=== PATIENT | male | born 1935 | race Caucasian/White ===

== ENCOUNTER → 2016-10-30 | Outpatient (CLI) | payer BC ==
[~2016-10-30] MED LIST: ASCO10003 PO; ASPI325T39 PO; BIOT1CAP8 PO; BNC20 PO; CHOL20009 PO; CHRO1TAB4 PO; COEN1CAP7 PO; LPT/20 PO; LUTE1TAB2 PO; NIAC250T8 PO; OMEG12006 PO; PLV75 PO; PSYL0.529 PO; RESV100C PO; SELE200T9 PO; TPRSR/50 PO; TPRSR25 PO; TRAM-10 PO; VITA1CAP11 PO; VITA1TAB4 PO; VITBC PO; WARF7.5T PO
[2016-10-30 14:00] LABS: ESTIMATED AVERAGE GLUCOSE 126 mg/dl; HA1C FLAG Normal (Normal)
[2016-10-30 14:03] LABS: BASO % 0.8 %; BASO ABS # 0.06 K/uL (0-0.2); COMPLETE YES; EOS % 7.3 %; HEMATOCRIT 41.6 % (42-52); IG% 0.3 %; LYMPH ABS # 1.64 K/uL (1.2-3.4); MEAN CORPUSCULAR HEMOGLOBIN 34.4 pg (25-34); MEAN CORPUSCULAR HGB CONC 33.4 g/dl (32-36); MEAN PLATELET VOLUME 10.4 fL (7.4-10.4); MONO % 15.4 %; NEUT % 53.2 %; PLATELET COUNT 171 K/uL (130-400); RED BLOOD COUNT 4.04 M/uL (4.7-6.1); WHITE BLOOD COUNT 7.12 K/uL (4.8-10.8)
[2016-10-30 14:07] LABS: ALKALINE PHOSPHATASE 64 U/L (45-117); ALT/SGPT 31 U/L (12-78); AST/SGOT 24 U/L (15-37); BLOOD UREA NITROGEN 13 mg/dl (7-18); BUN/CREATININE RATIO 14.5 (10-20); CALCIUM 8.7 mg/dl (8.5-10.1); CARBON DIOXIDE 31 mmol/L (21-32); CHLORIDE 104 mmol/L (98-107); CREATININE 0.91 mg/dl (0.60-1.40); GLUCOSE 107 mg/dl (70-99); POTASSIUM 4.3 mmol/L (3.5-5.1); SODIUM 141 mmol/L (136-145)
[2016-10-30 14:13] LABS: PROSTATE SPECIFIC ANTIGEN 0.054 ng/ml (0.000-4.000)
--- NOTE | 2016-11-08 08:42 | CODING QUERY MEDICAL NECESSITY ---
SUPPORTING DIAGNOSIS NEEDED A supporting diagnosis is required for the test/procedure performed on this patient in order for us to be reimbursed by the patient's insurance. Please provide a supporting diagnosis for the following test/procedure listed below next to the test name along with your signature. *If there is no additional diagnosis for this patient that would support the following test/procedure please document that below next to the test/procedure. Test(s)/Procedure(s) that require a supporting diagnosis: * GLYCATED HEMOGLOBIN DIAGNOSIS: * PSA DIAGNOSIS: * DOS: 10/30/16 Provider Signature: Date: Thank you Citlalli Graff Health Information Management Once completed, please kindly fax back to [phone] For questions please call [phone]
== END | disposition home or self-care (01) ==
LOC: C.LABBC 10:15
PROVIDERS: ATTEND Internal Medicine
DX: I87.8 Other specified disorders of veins (principal); Z86.718 Personal history of other venous thrombosis and embolism; C61 Malignant neoplasm of prostate; R73.01 Impaired fasting glucose

== ENCOUNTER → 2017-04-25 | Outpatient (CLI) | payer BC ==
[2017-04-25 10:53] LABS: BASO % 0.9 %; BASO ABS # 0.06 K/uL (0-0.2); COMPLETE YES; EOS % 3.8 %; HEMATOCRIT 42.9 % (42-52); IG% 0.3 %; LYMPH % 25.3 %; LYMPH ABS # 1.67 K/uL (1.2-3.4); MEAN CELL VOLUME 103.9 fL (80-100); MEAN CORPUSCULAR HEMOGLOBIN 35.4 pg (25-34); MEAN PLATELET VOLUME 10.1 fL (7.4-10.4); MONO % 15.8 %; NEUT % 53.9 %; PLATELET COUNT 189 K/uL (130-400); RED BLOOD COUNT 4.13 M/uL (4.7-6.1); WHITE BLOOD COUNT 6.59 K/uL (4.8-10.8)
[2017-04-25 11:02] LABS: ALT/SGPT 33 U/L (12-78); AST/SGOT 22 U/L (15-37); BLOOD UREA NITROGEN 14 mg/dl (7-18); BUN/CREATININE RATIO 16.1 (10-20); CALCIUM 8.6 mg/dl (8.5-10.1); CARBON DIOXIDE 28 mmol/L (21-32); CHLORIDE 108 mmol/L (98-107); CREATININE 0.87 mg/dl (0.60-1.40); GLUCOSE 99 mg/dl (70-99); POTASSIUM 4.8 mmol/L (3.5-5.1); SODIUM 142 mmol/L (136-145)
[2017-04-25 11:03] LABS: PROTHROMBIN TIME (PATIENT) 44.7 SECONDS (9.0-12.0)
[2017-04-25 11:05] LABS: ALB/GLOB RATIO 0.9 (0.9-2); ALKALINE PHOSPHATASE 60 U/L (45-117); CHOLESTEROL 132 mg/dl (0-200); CHOLESTEROL/HDL RATIO 3.4; HDL CHOLESTEROL 39 mg/dl; LDL CHOLESTEROL CALCULATED 68 mg/dl; TRIGLYCERIDES 126 mg/dl (0-150); VERY LOW DENSITY LIPOPROT CALC 25 mg/dl
[2017-04-25 11:08] LABS: INR 3.9 (0.9-1.1)
== END | disposition home or self-care (01) ==
LOC: C.LABBC 08:46
PROVIDERS: ATTEND Internal Medicine
DX: D75.89 Other specified diseases of blood and blood-forming organs (principal); I48.0 Paroxysmal atrial fibrillation

== ENCOUNTER 2017-07-11 14:27 | Emergency (ER) | payer BC ==
[~2017-07-11] VITALS: Ht 182.9 cm; Wt 121.6 kg
[~2017-07-11 14:27] MED LIST changes: -PLV75 PO; -TPRSR/50 PO; -TRAM-10 PO
[2017-07-11 14:35] VITALS: TEMP 36.5; Ht 182.9 cm; Wt 121.6 kg
[2017-07-11] MEDS ORDERED: SODIUM CHLORIDE 0.9% 1000ML 1,000 ML IV STA (15:13)
--- NOTE | 2017-07-11 15:18 | EMERGENCY ROOM VISIT NOTE ---
History Report prepared by Rashid: Kalpesh Gustafson Under the Supervision of: Dr. Bettye Slater M.D. First contact with patient: 15:02 Chief Complaint: GI ASSESSMENT Stated Complaint: GASTRO-INTESTINAL DISTRESS Nursing Triage Summary: Patient c/o stomach soreness since 0900, mid lower abdomen. Nausea. Intermittent symptoms. Denies Diarrhea and constipation. Last large BM this am. In this am in coagulation clinic at [facility]. History of Present Illness The patient is a 82 year old male who presents to the Emergency Room with complaints of intermittent left lower abdominal pain that began this morning, 6 hours ago. He rates his pain a 4/10 in severity. Since this morning, he has been having this pain every couple of hours, with his pain being constant at this time. He notes that he also has intermittent right flank pain, with none currently. He has never had a kidney stone before. He is also experiencing nausea. He denies any fevers, diarrhea, constipation, melena, hematochezia, and abnormal urinary symptoms. His last bowel movement was this morning. He still has his gallbladder but not his appendix. He has a past medical history of hypertension, atrial fibrillation, and prostate cancer. He is taking blood thinners secondary to his atrial fibrillation and his DVT history. Source of History: patient Onset: 6 hours ago Position: abdomen (LLQ) Symptom Intensity: 4/10 Quality: ache Timing: intermittent Associated Symptoms: + nausea, No fevers, No vomiting, No back pain, No melena, No hematochezia, No diarrhea, No urinary symptoms Review of Systems See HPI for pertinent positives & negatives. A total of 10 systems reviewed and were otherwise negative. Past Medical & Surgical Medical Problems: (1) Peripheral neuropathy Family History Blood clots Social History Smoking Status: Never Smoker Smokeless Tobacco Use: No Alcohol Use: occasionally Drug Use: none Marital Status: Housing Status: lives with significant other Occupation Status: retired Current/Historical Medications Scheduled Ascorbic Acid (Vitamin C), 2 TAB PO QAM Atorvastatin (Atorvastatin Calcium), 20 MG PO DAILY Biotin (Biotin), 1,000 MCG PO DAILY Cholecalciferol (Vitamin D), 2,000 UNITS PO DAILY Chromium (Chromium Gtf), 1 TAB PO QAM Clopidogrel Bisulfate (Clopidogrel), 1 TAB PO DAILY Coenzyme Q10 (Ubidecarenone) (Coq10), 200 MG PO DAILY Lutein (Lutein), 1 TAB PO DAILY Metoprolol Succinate (Metoprolol Succinate ER), 1 TAB PO DAILY Niacin (Niacin), 250 MG PO QAM Olmesartan Medoxomil (Benicar), 20 MG PO DAILY [place]-3 Fatty Acids ([place] 3), 720 MG PO DAILY Psyllium (Eq Fiber Therapy), 3 CAP PO DAILY Resveratrol (Resveratrol), 1 CAP PO DAILY Selenium (Selenium), 1 TAB PO QAM Vitamin A ([id number]), 10,000 UNITS PO DAILY Vitamin B Complex (Vitamin B Complex), 1 TAB PO QAM Vitamin E (Vitamin E), 1 TAB PO QAM Warfarin Sodium (Coumadin), 7.5 MG PO DAILY Scheduled PRN Tramadol (Ultram), 1 TABS PO Q6 PRN for Pain Allergies Coded Allergies: Fiore (Verified Allergy, Severe, FRESH CHERRIES CAUSE THROAT SWELLING/ BREATHING DIFFICULTY, 07/11/17) Oxycodone (Verified Adverse Reaction, Unknown, NAUSEA & DIZZY, 07/11/17) Physical Exam Vital Signs Date Time Temp Pulse Resp B/P (MAP) Pulse Ox O2 Delivery O2 Flow Rate FiO2 07/11/17 16:30 56 12 169/83 97 Room Air 07/11/17 15:23 67 07/11/17 14:35 36.5 64 18 165/89 94 Room Air Physical Exam Vital signs reviewed. General: Well-appearing obese elderly male, in no significant distress. HEENT: No scleral icterus, PERRLA, neck supple. Atraumatic. Cardiovascular: Regular rate and rhythm, no extra sounds. Pulmonary: Clear to auscultation bilaterally, normal work of breathing. Abdomen: Soft, no reproducible tenderness to the lower abdomen, nondistended, positive bowel sounds. Musculoskeletal: Atraumatic, no peripheral edema. No CVA tenderness. Neurologic: Patient awake alert and oriented x 3 Skin: Warm, dry, no rash Medical Decision & Procedures ER Provider Diagnostic Interpretation: Radiology results as stated below per my review and radiologist interpretation: CT OF THE ABDOMEN AND PELVIS WITHOUT CONTRAST CLINICAL HISTORY: Right lower abdominal pain. Right flank pain. Stone. COMPARISON STUDY: CTA of the abdomen and pelvis June 06, 2013. TECHNIQUE: Axial images of the abdomen and pelvis were obtained without IV contrast. Images were reviewed in the axial, sagittal, and coronal planes. A dose lowering technique was utilized adhering to the principles of ALARA. FINDINGS: A 4 mm distal right ureteral calculus results in mild right hydroureteronephrosis. No additional urinary calculi are identified. Evaluation of the remainder of the abdomen and pelvis is suboptimal on this unenhanced examination. There is extensive coronary artery calcification. Unenhanced images of the liver, spleen, adrenal glands and pancreas are unremarkable. There is no biliary or pancreatic ductal dilatation. No abdominal or pelvic lymphadenopathy is present. Note is made of a 3.7 x 3.2 cm infrarenal abdominal aortic aneurysm which has mildly increased in size since CT of June 06, 2013 when measured 3.3 x 2.8 cm. There is no evidence for rupture. 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 The left common iliac artery measures 2.3 cm. Caliber and wall thickness of small and large bowel are unremarkable on this unenhanced exam. There are no suspicious lesions. No ascites is identified. Postoperative findings within the spine are present. IMPRESSION: 1. 4 mm distal right ureteral calculus which results in mild right hydroureteronephrosis. 2. Mild increase in size of a 3.7 x 3.2 cm infrarenal abdominal aortic aneurysm since CT of June 06, 2013. No significant change in mild aneurysmal dilatation of the bilateral common iliac arteries. Electronically signed by: Mark Carpenter M.D. 07/11/2017 4:03 PM Dictated Date/Time: 07/11/2017 3:54 PM Laboratory Results 07/11/17 15:05 Red Blood Count 4.21, Mean Corpuscular Volume 102.1, Mean Corpuscular Hemoglobin 35.6, Mean Corpuscular Hemoglobin Concent 34.9, Mean Platelet Volume 10.0, Neutrophils (%) (Auto) 69.0, Lymphocytes (%) (Auto) 13.8, Monocytes (%) ( Auto) 15.6, Eosinophils (%) (Auto) 0.9, Basophils (%) (Auto) 0.5, Neutrophils # (Auto) 6.02, Lymphocytes # (Auto) 1.20, Monocytes # (Auto) 1.36, Eosinophils # ( Auto) 0.08, Basophils # (Auto) 0.04 07/11/17 15:05 Test 07/11/17 15:05 07/11/17 15:20 White Blood Count 8.72 K/uL (4.8-10.8) Red Blood Count 4.21 M/uL (4.7-6.1) Hemoglobin 15.0 g/dL (14.0-18.0) Hematocrit 43.0 % (42-52) Mean Corpuscular Volume 102.1 fL (80-100) Mean Corpuscular Hemoglobin 35.6 pg (25-34) Mean Corpuscular Hemoglobin Concent 34.9 g/dl (32-36) Platelet Count 178 K/uL (130-400) Mean Platelet Volume 10.0 fL (7.4-10.4) Neutrophils (%) (Auto) 69.0 % Lymphocytes (%) (Auto) 13.8 % Monocytes (%) (Auto) 15.6 % Eosinophils (%) (Auto) 0.9 % Basophils (%) (Auto) 0.5 % Neutrophils # (Auto) 6.02 K/uL (1.4-6.5) Lymphocytes # (Auto) 1.20 K/uL (1.2-3.4) Monocytes # (Auto) 1.36 K/uL (0.11-0.59) Eosinophils # (Auto) 0.08 K/uL (0-0.5) Basophils # (Auto) 0.04 K/uL (0-0.2) RDW Standard Deviation 48.2 fL (36.4-46.3) RDW Coefficient of Variation 12.9 % (11.5-14.5) Immature Granulocyte % (Auto) 0.2 % Immature Granulocyte # (Auto) 0.02 K/uL (0.00-0.02) Anion Gap 7.0 mmol/L (3-11) Est Creatinine Clear Calc Drug Dose 63.9 ml/min Estimated GFR () 64.9 Estimated GFR (Non- 56.0 BUN/Creatinine Ratio 13.8 (10-20) Calcium Level 9.5 mg/dl (8.5-10.1) Total Bilirubin 0.8 mg/dl (0.2-1) Direct Bilirubin 0.2 mg/dl (0-0.2) Aspartate Amino Transf (AST/SGOT) 25 U/L (15-37) Alanine Aminotransferase (ALT/SGPT) 31 U/L (12-78) Alkaline Phosphatase 67 U/L (45-117) Total Protein 7.6 gm/dl (6.4-8.2) Albumin 3.8 gm/dl (3.4-5.0) Lipase 148 U/L (73-393) Urine Color DK YELLOW Urine Appearance CLEAR (CLEAR) Urine pH 6.0 (4.5-7.5) Urine Specific Rawlings 1.019 (1.000-1.030) Urine Protein NEG (NEG) Urine Glucose (UA) NEG (NEG) Urine Ketones NEG (NEG) Urine Occult Blood 3+ (NEG) Urine Nitrite NEG (NEG) Urine Bilirubin NEG (NEG) Urine Urobilinogen NEG (NEG) Urine Leukocyte Esterase NEG (NEG) Urine WBC (Auto) 1-5 /hpf (0-5) Urine RBC (Auto) >30 /hpf (0-4) Urine Hyaline Casts (Auto) 0 /lpf (0-5) Urine Epithelial Cells (Auto) 0-5 /lpf (0-5) Urine Bacteria (Auto) NEG (NEG) Laboratory results per my review. Medications Administered Medications (Trade) Dose Ordered Sig/Marilyn Route Start Time Stop Time Status Last Admin Dose Admin Sodium Chloride 1,000 ml @ 125 mls/hr Q8H STAT IV 07/11/17 15:13 07/11/17 18:09 DC 07/11/17 15:56 125 MLS/HR ED Course 1502: Past medical records reviewed. The patient was evaluated in room A2. A complete history and physical examination was performed. 1513: Ordered Sodium Chloride 1000 ml @ 125 mls/hr IV 1700: Upon reevaluation, the patient appeared to have improvement of his symptoms. I discussed findings with him. He verbalized agreement of the treatment plan. He was discharged home. Medical Decision Differential diagnosis: Etiologies such as appendicitis, diverticulitis, PUD, biliary pathology, UTI, pancreatitis, obstruction, mesenteric ischemia, aortic pathology, infections, inflammatory bowel disease, renal colic, as well as others were entertained. This patient was evaluated and appeared to be in no significant distress. IV access was obtained and laboratory work was drawn. Patient was placed on the telemetry monitor. Patient's physical examination reveals no significant peritonitis. CT scan abdomen and pelvis reveals a 4 mm distal ureteral calculus. There is mild hydronephrosis. Renal function is intact. The patient did not require any pain medications. Pt was informed of the findings. Case management will assist with urologic follow-up this week. Patient was discharged to care of his with a prescription for Ultram to be used as needed. He will return to the ER for worsening of symptoms or any medical concerns. Medication Reconcilliation Current Medication List: was personally reviewed by me Blood Pressure Screening Patient's blood pressure: Elevated blood pressure Blood pressure disposition: Elevated BP felt to be situational Impression Primary Impression: Ureteral colic Additional Impression: Kidney stone Scribe Attestation The scribe's documentation has been prepared under my direction and personally reviewed by me in its entirety. I confirm that the note above accurately reflects all work, treatment, procedures, and medical decision making performed by me. Departure Information Dispostion Home / Self-Care Prescriptions Tramadol (Ultram) 50 Mg Tab 1 TABS PO Q6 Y for Pain, #20 TAB Prov: Bettye Slater M.D. 07/11/17 Referrals Red Mix M.D. (PCP) Raj Norton M.D. Forms HOME CARE DOCUMENTATION FORM, IMPORTANT VISIT INFORMATION Patient Instructions My [facility] Additional Instructions Diagnosis: Kidney stone Strain all of your urine and take the stone for analysis. Increase fluids. Tylenol 650 mg every 6 hours as needed for pain (Maximum 3000 mg Tylenol in 24 hr period). Ultram 1 tablet every 6 hrs as needed for worse pain. No driving, working, or alcohol use with Ultram. Ultram 50 mg every 6 hours as needed for pain. Follow up with your urologist as scheduled by case management. Follow up sooner for fever >101, vomiting, or significant increase in pain not controlled with medication. Problem Qualifiers
[2017-07-11 15:30] LABS: BASO % 0.5 %; BASO ABS # 0.04 K/uL (0-0.2); COMPLETE YES; EOS % 0.9 %; IG% 0.2 %; LYMPH % 13.8 %; MEAN CELL VOLUME 102.1 fL (80-100); MEAN CORPUSCULAR HEMOGLOBIN 35.6 pg (25-34); MEAN CORPUSCULAR HGB CONC 34.9 g/dl (32-36); MONO % 15.6 %; PLATELET COUNT 178 K/uL (130-400); RED BLOOD COUNT 4.21 M/uL (4.7-6.1); WHITE BLOOD COUNT 8.72 K/uL (4.8-10.8)
[2017-07-11 15:40] LABS: URINE APPEARANCE CLEAR (CLEAR); URINE BILIRUBIN NEG (NEG); URINE COLOR DK YELLOW; URINE EPITHELIAL CELL AUTO 0-5 /lpf (0-5); URINE NITRITE NEG (NEG); URINE SPECIFIC GRAVITY 1.019 (1.000-1.030); UROBILINOGEN NEG (NEG); ZZUR CULT IF INDIC CLEAN CATCH NO
[2017-07-11 15:47] LABS: BUN/CREATININE RATIO 13.8 (10-20); CALCIUM 9.5 mg/dl (8.5-10.1); CREATININE 1.2 mg/dl (0.60-1.40); POTASSIUM 4.6 mmol/L (3.5-5.1)
[2017-07-11 15:51] LABS: MANUAL MICROSCOPIC REQUIRED? NO; REVIEW REQ? NO
[2017-07-11] MEDS ORDERED: PLV75 PO (16:03)
[2017-07-11] MEDS ORDERED: TPRSR/50 PO (16:03)
--- NOTE | 2017-07-11 16:04 | DIAGNOSTIC IMAGING REPORT ---
CT OF THE ABDOMEN AND PELVIS WITHOUT CONTRAST CLINICAL HISTORY: Right lower abdominal pain. Right flank pain. Stone. COMPARISON STUDY: CTA of the abdomen and pelvis June 06, 2013. TECHNIQUE: Axial images of the abdomen and pelvis were obtained without IV contrast. Images were reviewed in the axial, sagittal, and coronal planes. A dose lowering technique was utilized adhering to the principles of ALARA. FINDINGS: A 4 mm distal right ureteral calculus results in mild right hydroureteronephrosis. No additional urinary calculi are identified. Evaluation of the remainder of the abdomen and pelvis is suboptimal on this unenhanced examination. There is extensive coronary artery calcification. Unenhanced images of the liver, spleen, adrenal glands and pancreas are unremarkable. There is no biliary or pancreatic ductal dilatation. No abdominal or pelvic lymphadenopathy is present. Note is made of a 3.7 x 3.2 cm infrarenal abdominal aortic aneurysm which has mildly increased in size since CT of June 06, 2013 when measured 3.3 x 2.8 cm. There is no evidence for rupture. 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 The left common iliac artery measures 2.3 cm. Caliber and wall thickness of small and large bowel are unremarkable on this unenhanced exam. There are no suspicious lesions. No ascites is identified. Postoperative findings within the spine are present. IMPRESSION: 1. 4 mm distal right ureteral calculus which results in mild right hydroureteronephrosis. 2. Mild increase in size of a 3.7 x 3.2 cm infrarenal abdominal aortic aneurysm since CT of June 06, 2013. No significant change in mild aneurysmal dilatation of the bilateral common iliac arteries. Electronically signed by: Mark Carpenter M.D. 07/11/2017 4:03 PM Dictated Date/Time: 07/11/2017 3:54 PM
[2017-07-11 16:30] VITALS: BP 169/83; PULSE 56; O2SAT 97
[2017-07-11] MEDS ORDERED: TRAM-10 PO (16:52)
== END 2017-07-11 16:55 | disposition home or self-care (01) ==
LOC: C.EDB 14:29 → C.EDA 16:55
DX: N13.2 Hydronephrosis with renal and ureteral calculous obstruction (principal); Z79.899 Other long term (current) drug therapy; Z88.5 Allergy status to narcotic agent; Z91.018 Allergy to other foods; Z83.2 Family history of diseases of the blood and blood-forming organs and certain disorders involving the immune mechanism; Z51.81 Encounter for therapeutic drug level monitoring; Z79.01 Long term (current) use of anticoagulants; I48.91 Unspecified atrial fibrillation

== ENCOUNTER → 2017-07-18 | Outpatient (CLI) | payer BC ==
[~2017-07-18] MED LIST changes: -ASPI325T39 PO; +PLV75 PO; +TPRSR/50 PO; -TPRSR25 PO; +TRAM-10 PO
== END | disposition home or self-care (01) ==
LOC: C.LABSPEC 17:40
PROVIDERS: ATTEND Urology
DX: N20.0 Calculus of kidney (principal)

== ENCOUNTER → 2017-08-06 | Outpatient (CLI) | payer BC ==
--- NOTE | 2017-08-06 11:37 | DIAGNOSTIC IMAGING REPORT ---
ULTRASOUND KIDNEYS AND BLADDER CLINICAL HISTORY: Nephrolithiasis. COMPARISON STUDY: Abdominal CT dated 07/11/2017. TECHNIQUE: Real-time, grayscale, and color flow sonography of the kidneys and bladder is performed. Images are reviewed in the transverse and longitudinal planes. FINDINGS: Kidneys: The kidneys are atrophic. The right kidney measures 11.8 cm in length and the left kidney measures 12.1 cm in length. There is no hydronephrosis. No shadowing renal calculi are identified. There is no sonographic evidence of contour deforming renal mass lesion. No perinephric fluid is identified. Bladder: The bladder is normal in appearance. Bilateral ureteral jets were seen. IMPRESSION: 1. The kidneys are atrophic and without hydronephrosis. 2. No shadowing calculi were identified. 3. The bladder was normal as imaged. Electronically signed by: Jason Ferreira M.D. 08/06/2017 11:35 AM Dictated Date/Time: 08/06/2017 11:35 AM
== END | disposition home or self-care (01) ==
LOC: C.ULTRBC 10:10
PROVIDERS: ATTEND Urology
DX: N20.0 Calculus of kidney (principal)

== ENCOUNTER → 2017-09-24 | Outpatient (CLI) | payer BC | END | disposition home or self-care (01) | LOC: C.MAMM 15:38 | PROVIDERS: ATTEND Physician Assistant Medical | DX: Z00.00 Encounter for general adult medical examination without abnormal findings (principal); S22.39XA Fracture of one rib, unspecified side, initial encounter for closed fracture; X58.XXXA Exposure to other specified factors, initial encounter ==

== ENCOUNTER → 2017-10-05 | Outpatient (CLI) | payer BC ==
--- NOTE | 2017-10-05 12:10 | DIAGNOSTIC IMAGING REPORT ---
L FOOT MIN 3 VIEWS ROUTINE HISTORY: 82 years-old Male LEFT LEG PAIN/SWELLING, R/O DVT acute pain and swelling of the left foot COMPARISON: None available TECHNIQUE: 3 views of the left foot FINDINGS: Peripheral vascular disease. Moderate spurring of the plantar calcaneus. Mild to moderate dorsal spurring is noted throughout the midfoot. There is no acute fracture or dislocation identified. Bones appear mildly demineralized. Hallux valgus deformity with mild bunion formation. Marginal spurring is noted medially about the first tarsal metatarsal joint. Please mild general changes are noted throughout the interphalangeal joints with moderate first MTP joint osteoarthritis. Mild diffuse soft tissue swelling. IMPRESSION: 1. Osteopenic appearance of the bones without acute fracture or dislocation. 2. 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 3. Peripheral vascular disease. 4. Mild soft tissue swelling. The above report was generated using voice recognition software. It may contain grammatical, syntax or spelling errors. Electronically signed by: Eb Guerrero M.D. 10/05/2017 12:09 PM Dictated Date/Time: 10/05/2017 12:06 PM
--- NOTE | 2017-10-05 12:29 | DIAGNOSTIC IMAGING REPORT ---
L VENOUS DOPP LOWER EXT UNILAT HISTORY: 82 years-old Male LEFT LEG PAIN/SWELLING, R/O DVT acute left lower extremity pain and swelling COMPARISON: Duplex Doppler 07/09/2014 TECHNIQUE: Multiple real-time sonographic images of the left lower extremity were obtained assessing grayscale appearance, color and echo flow FINDINGS: There is normal flow, phasicity, augmentation and compressibility within the deep venous structures. IMPRESSION: No sonographic evidence of deep venous thrombosis. The above report was generated using voice recognition software. It may contain grammatical, syntax or spelling errors. Electronically signed by: Eb Guerrero M.D. 10/05/2017 12:28 PM Dictated Date/Time: 10/05/2017 12:27 PM
== END | disposition home or self-care (01) ==
LOC: C.ULTRBC 11:35
PROVIDERS: ATTEND Nurse Practitioner Adult Health
DX: M79.673 Pain in unspecified foot (principal); R60.9 Edema, unspecified

== ENCOUNTER → 2017-11-09 | Outpatient (CLI) | payer BC ==
[~2017-11-09] MED LIST changes: -LPT/20 PO; +LPT20 PO
[2017-11-09 14:40] LABS: CALCIUM 9.1 mg/dl (8.5-10.1)
== END | disposition home or self-care (01) ==
LOC: C.LABBC 09:32
PROVIDERS: ATTEND Internal Medicine Rheumatology
DX: N20.0 Calculus of kidney (principal); M85.80 Other specified disorders of bone density and structure, unspecified site; S22.39XA Fracture of one rib, unspecified side, initial encounter for closed fracture; S22.000A Wedge compression fracture of unspecified thoracic vertebra, initial encounter for closed fracture; X58.XXXA Exposure to other specified factors, initial encounter

== ENCOUNTER → 2017-11-19 | Outpatient (CLI) | payer BC ==
[2017-11-19 10:55] LABS: BASO % 0.7 %; BASO ABS # 0.05 K/uL (0-0.2); EOS % 3.1 %; EOS ABS # 0.21 K/uL (0-0.5); HEMATOCRIT 42.4 % (42-52); HEMOGLOBIN 14.4 g/dL (14.0-18.0); IG# 0.02 K/uL (0.00-0.02); LYMPH % 26.1 %; LYMPH ABS # 1.79 K/uL (1.2-3.4); MEAN CELL VOLUME 104.4 fL (80-100); MEAN CORPUSCULAR HEMOGLOBIN 35.5 pg (25-34); MEAN PLATELET VOLUME 10.4 fL (7.4-10.4); MONO % 17.8 %; MONO ABS # 1.22 K/uL (0.11-0.59); NEUT ABS # 3.56 K/uL (1.4-6.5); PLATELET COUNT 182 K/uL (130-400); RED CELL DISTRIBUTION WIDTH CV 13.1 % (11.5-14.5); RED CELL DISTRIBUTION WIDTH SD 49.7 fL (36.4-46.3); WHITE BLOOD COUNT 6.85 K/uL (4.8-10.8)
[2017-11-19 11:19] LABS: ALBUMIN 3.5 gm/dl (3.4-5.0); ALT/SGPT 29 U/L (12-78); AST/SGOT 20 U/L (15-37); BLOOD UREA NITROGEN 13 mg/dl (7-18); CALCIUM 8.5 mg/dl (8.5-10.1); CARBON DIOXIDE 31 mmol/L (21-32); CREATININE 0.91 mg/dl (0.60-1.40); GLUCOSE 104 mg/dl (70-99); POTASSIUM 4.4 mmol/L (3.5-5.1); SODIUM 137 mmol/L (136-145)
[2017-11-19 11:24] LABS: ALKALINE PHOSPHATASE 63 U/L (45-117); CHOLESTEROL 148 mg/dl (0-200); LDL CHOLESTEROL CALCULATED 79 mg/dl; TOTAL PROTEIN 7.3 gm/dl (6.4-8.2)
[2017-11-19 11:31] LABS: HEMOGLOBIN A1C 5.9 % (4.5-5.6)
== END | disposition home or self-care (01) ==
LOC: C.LABBC 08:53
PROVIDERS: ATTEND Internal Medicine
DX: I10 Essential (primary) hypertension (principal); C61 Malignant neoplasm of prostate; I25.10 Atherosclerotic heart disease of native coronary artery without angina pectoris; R73.01 Impaired fasting glucose; D75.89 Other specified diseases of blood and blood-forming organs; I48.0 Paroxysmal atrial fibrillation

== ENCOUNTER → 2018-02-11 | Outpatient (CLI) | payer BC ==
[~2018-02-11] MED LIST changes: +MULT-663 PO; -TRAM-10 PO
--- NOTE | 2018-02-11 11:54 | DIAGNOSTIC IMAGING REPORT ---
EXAMINATION: RENAL ULTRASOUND CLINICAL HISTORY: N40.1 Benign prostatic hyperplasia with urinary obstruction COMPARISON STUDY: 08/06/2017 FINDINGS: The right kidney measures 11.9 cm. The left kidney measures 12.1 cm. There is no evidence of hydronephrosis. There are no renal masses. There is mild renal atrophy. No bladder abnormalities are visualized. Bilateral ureteral jets were visualized. IMPRESSION : Mild renal atrophy.. No focal renal masses. No evidence of hydronephrosis Electronically signed by: Randall Ugalde M.D. 02/11/2018 11:52 AM Dictated Date/Time: 02/11/2018 11:51 AM
== END ==
LOC: C.ULTRBC 10:50
PROVIDERS: ATTEND Urology
DX: N40.1 Benign prostatic hyperplasia with lower urinary tract symptoms (principal)

== ENCOUNTER 2022-02-01 14:46 | Inpatient (IN) ==
--- NOTE | 2022-02-01 14:59 | Emergency Department Note ---
History of Present Illness General Chief complaint: Fall Stated complaint: FALL, LAC TO HEAD Time Seen by Provider: 02/01/22 14:48 History of Present Illness Provider complaint: Fall Onset (ago): minute(s) 30 Location: neck Radiation: other (head) Severity: mild Pain Consistency: + constant Current Pain Intensity: 3 Quality: + aching Relieved By: + none Exacerbated By: + none Associated symptoms: + headaches; no chest pain, no cough, no fever/chills, no nausea/vomiting, no shortness of breath, no syncope or no weakness 87-year-old male presents emergency department for fall. Patient reports that he was at his doctor's office in approximately 30 minutes ago fell from standing while trying to put a shirt on. Patient states he hit his head is not having neck pain. Patient reports his doctor called EMS and they brought him here. No loss of consciousness. Patient is on Coumadin. Home Medications Medication Instructions Recorded Confirmed Type ascorbic acid (vitamin C) 500 mg 1,000 mg PO DAILY cap 07/09/18 02/01/22 History capsule biotin 1 mg capsule 1 mg PO DAILY 07/09/18 02/01/22 History calcium 1 tab PO DAILY tab 07/09/18 02/01/22 History taq-kgt-D7-Ho-axrcoc-Tl-boron 250 mg-40 mg-125 unit tablet (Citracal-D3 Plus Magnesium) cholecalciferol (vitamin D3) 100 4,000 units PO DAILY 07/09/18 02/01/22 History mcg (4,000 unit) capsule coenzyme Q10 200 mg capsule 200 mg PO DAILY 07/09/18 02/01/22 History lutein 6 mg capsule 6 mg PO DAILY 07/09/18 02/01/22 History niacin 250 mg tablet 250 mg PO DAILY 07/09/18 02/01/22 History selenium 200 mcg tablet 200 mcg PO DAILY 07/09/18 02/01/22 History vitamin B complex 1 cap PO DAILY 07/09/18 02/01/22 History vitamin E (dl, acetate) 180 mg 400 units PO DAILY 07/09/18 02/01/22 History (400 unit) capsule omega-3 fatty acids 1,000 mg 2,000 mg PO DAILY cap 07/29/19 02/01/22 History capsule clopidogrel 75 mg tablet (Plavix) 75 mg PO DAILY #90 tab 08/16/21 02/01/22 Rx atorvastatin 20 mg tablet (Lipitor) 20 mg PO DAILY #90 tab 11/28/21 02/01/22 Rx docusate sodium 100 mg capsule 200 mg PO DAILY cap 12/23/21 02/01/22 History (Colace) metoprolol succinate 50 mg 50 mg PO DAILY #90 tab 01/05/22 02/01/22 Rx tablet,extended release 24 hr furosemide 20 mg tablet (Lasix) 20 mg PO DAILY #30 tab 01/23/22 02/01/22 Rx chromium picolinate 200 mcg tablet 200 mcg PO DAILY 02/01/22 02/01/22 History warfarin 7.5 mg tablet 7.5 mg PO DAILY 02/01/22 02/01/22 History Allergies Allergy/AdvReac Type Severity Reaction Status Date / Time hall Allergy Severe FRESH Verified 02/01/22 09:53 CHERRIES CAUSE THROAT SWELLING/BREATHING DIFFICULTY Past Med/Surg History Medical History Aortic regurgitation Aortic stenosis Arteriosclerotic heart disease Cervical radiculopathy Hypertension Impaired fasting glucose Lumbar canal stenosis Nephrolithiasis Osteopenia Paroxysmal A-fib Paroxysmal ventricular tachycardia Peripheral vascular disease of lower extremity Polyneuropathy Prostate cancer Surgical History H/O arthroscopy of shoulder left H/O foot surgery H/O prostate biopsy H/O repair of rotator cuff History of carpal tunnel surgery History of lumbar laminectomy Hx of appendectomy Hx of tonsillectomy Status post Mohs surgery Family History Father Dementia Arterial vascular disease Myocardial infarction Denies family history of Ovarian cancer Prostate cancer Breast cancer Colorectal cancer Social History Smoking Status: Never smoker Second Hand Exposure: No; Hx Alcohol Use: Yes (daily glass of wine) Alcohol type: wine Hx Substance Use: No Preferred Language: Sammarinese Communication Ability: Effective Visual Impairment: Limited Hearing Ability: Normal 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 marital status: Current Living Situation: Spouse current occupational status: retired How many Children do You have: 1 Feels Safe at Home: Yes Childhood Exposure to Second-Hand Smoke: No caffeine: Yes (tea daily ) Dental Care, Regularly: Yes Physical Activity Frequency: Does not Exercise Seatbelt Use: always Sunscreen Use: No Assistive Devices: Cane Review of Systems A total of 10 systems reviewed and were otherwise negative Physical Exam Vital Signs Vital Signs - 24 hr 02/01/22 14:55 02/01/22 14:57 02/01/22 16:57 Temperature 37.0 C Temperature Source Oral Pulse Rate 70 Pulse Rate [Left Radial] 97 H 106 H Pulse Rhythm Regular Regular Pulse Rhythm [Left Radial] Regular Regular Pulse Strength Normal Respiratory Rate 20 20 Respiratory Effort / Characteristics Non-Labored Non-Labored Respiratory Depth Normal Normal Respiratory Pattern Regular Blood Pressure 171/103 H Blood Pressure [Left Arm] 171/103 H 165/120 H Blood Pressure Mean 125 Blood Pressure Mean [Left Arm] 125 135 Blood Pressure Position Lying Blood Pressure Position [Left Arm] Lying Lying Pulse Oximetry 94 95 96 Oxygen Delivery Method Room Air Room Air Room Air Sepsis Recent Fever Within 48 Hours No Sepsis New/Unexplained Change in Mental Status No Sepsis Action Taken by Nursing No Action Required Physical Exam GENERAL: He is oriented to person, place, and time. He appears well-developed and well-nourished. He does not appear distressed. HENT: Exam performed. - Head: Skin tear over the patient's forehead. - Right Ear: External ear normal. No mastoid tenderness. - Left Ear: External ear normal. No mastoid tenderness. - Mouth/Throat: The oropharynx is clear and moist. No trismus in the jaw. No dental abscesses or uvula swelling. No oropharyngeal exudate or tonsillar abscesses. EYES: Conjunctivae and EOM are normal. Pupils are equal, round, and reactive to light. Right eye exhibits no discharge. Left eye exhibits no discharge. No scleral icterus. NECK: Patient in c-collar. CV: Normal rate, irregular rhythm, normal heart sounds and intact distal pulses. There is no peripheral edema. Palpable radial pulses bue. PULM/CHEST: Effort normal and breath sounds normal. No respiratory distress. No stridor. He has no wheezes. He has no rales. - Chest Wall: He exhibits no tenderness. ABD: The abdomen is soft. Bowel sounds are normal. He has no distension. No mass is present. There is no tenderness. There is no rebound, no guarding, no Murp hy's sign and no tenderness at McBurney's point. Rovsig negative. MUSC/SKEL: Palpation in the cervical spine. No pain on palpation of the thoracic or lumbar spine. LYMPH: No cervical adenopathy. NEURO: GCS eye subscore is 4. GCS verbal subscore is 5. GCS motor subscore is 6. PSYCH: He has a normal mood and affect. Behavior is normal. Judgment and thought content normal. Course Course 1448: The patient was evaluated in room A11. A complete history and physical exam was performed Cardiac monitoring: An order was placed for continuous cardiac monitoring. The monitor shows a rate of 70 with atrial fibrilation rhythm 1546: Vital signs stable. Labs within normal limits therapeutic INR 2.2. CT of the head within normal limits. CT of the C-spine C1 and type II dens fracture. Patient will be sent for additional CT of the abdomen given his therapeutic INR and traumatic findings on CT C-spine. Patient maintained in c-collar. 1635: Chest x-ray and CT abdomen showed no acute traumatic injury. Will page Dr. Fraire on-call orthospine about the C1 and C2 fracture. 1715: Still no response from Dr. Fraire. Will contact [facility] about potential transfer. Forehead wound closed with Dermabond by ZULY Dickinson see his procedure note. 1730: Spoke with [facility] Dr. Gu who accepts the patient to the SICU. Trauma attending asking for Kcentra 25U/kg to be given to the patient. Spoke with Dr. Vargas he states she will put in the order for Kcentra but also recommends given vitamin K 10 mg IV. 10 mg vitamin K ordered for the patient. Discussed with patient and at bedside and they are okay with transferring if we are not able to keep the patient at this facility. 1750: Dr. Fraire did call back and states that we can manage this patient here at this facility and no acute surgical intervention is planned at this time. He states he will evaluate the patient in the morning. He states admit the patient to the hospitalist team. Spoke with [facility] hospitalist Dr. Wise who states he will evaluate the patient for admission. Administered Medications Discontinued Medications Phytonadione 10 mg/ Dextrose 51 mls @ 102 mls/hr IV ONE ONE Stop: 02/01/22 17:53 Last Infusion: 02/01/22 18:47 Dose: 0 mls/hr Documented by: [id number] Admin: 02/01/22 18:02 Dose: 102 mls/hr Documented by: [id number] Prothrombin Complex Concent ( (Human) 2,500 units/ Syringe) 100 mls @ 10 mls/min IV TODAY@1726 [facility]; Protocol Stop: 02/01/22 21:00 Last Admin: 02/01/22 17:47 Dose: 10 mls/min Documented by: [id number] Ioversol (Optiray 320 100ml) 94 ml IV ONCE ONE Stop: 02/01/22 16:03 Last Admin: 02/01/22 16:05 Dose: 94 ml Documented by: [id number] Critical Care Time Critical Care Time: Yes Total Critical Care Time: 48 I have personally spent greater than 48 minutes of critical care time in the direct management of this patient. This includes bedside care, interpretation of diagnostic studies, and testing, discussion with consultants, patient, and family members, and other required patient management activities. This 48 minutes is in excess of all separately billable procedures. Medical Decision Making Laboratory Data Result diagrams: 02/01/22 15:05 02/01/22 15:05 Lab Results 02/01/22 02/01/22 02/01/22 Range/Units 15:05 15:05 15:05 WBC 8.89 (4.8-10.8) K/uL RBC 3.99 L (4.7-6.1) M/uL Hgb 13.6 L (14.0-18.0) g/dL POC Hgb (14.0-18.0) g/dl Hct 40.6 L (42-52) % POC Hct (42-52) % MCV 101.8 H (80-100) fL MCH 34.1 H (25-34) pg MCHC 33.5 (32-36) g/dL RDW Std Deviation 52.4 H (36.4-46.3) fL RDW Coeff of Miranda 13.9 (11.5-14.5) % Plt Count 239 (130-400) K/uL MPV 9.6 (7.4-10.4) fL Immature Gran % (Auto) 0.3 % Neut % (Auto) 57.5 % Lymph % (Auto) 21.4 % Rabun % (Auto) 17.5 % Eos % (Auto) 2.9 % Baso % (Auto) 0.4 % Neut # (Auto) 5.10 (1.4-6.5) K/uL Lymph # (Auto) 1.90 (1.2-3.4) K/uL Rabun # (Auto) 1.56 H (0.11-0.59) K/uL Eos # (Auto) 0.26 (0-0.5) K/uL Baso # (Auto) 0.04 (0-0.2) K/uL Immature Gran # (Auto) 0.03 H (0.00-0.02) K/uL PT 22.1 H (9.0-12.0) Seconds INR 2.2 H (0.9-1.1) APTT 31.3 H (21.0-31.0) Seconds PTT Ratio 1.1 POC Sodium (135-144) mmol/L Sodium 135 L (136-145) mmol/L POC Potassium (3.3-5.0) mmol/L Potassium 4.2 (3.5-5.1) mmol/L POC Chloride (101-112) mmol/L Chloride 100 (98-107) mmol/L Carbon Dioxide 29 (21-32) mmol/L POC Total CO2 (24-31) mmol/L Anion Gap 6 (3-11) POC Anion Gap (16-25) mmol/L POC BUN (7-18) mg/dl BUN 14 (6-23) mg/dl Creatinine 0.64 (0.6-1.4) mg/dl POC Creatinine (0.6-1.3) mg/dl Est Cr Clr Drug Dosing 100.7 ml/min Est GFR ( Amer) 102.0 ml/min Est GFR (Non-Af Amer) 88.0 ml/min BUN/Creatinine Ratio 21.9 H (10-20) Glucose 129 H (70-99(Fasting)) mg/dl POC Glucose (other) (70-99) mg/dl Calcium 8.7 (8.5-10.1) mg/dl POC Ioniz Calcium Josie (1.12-1.32) mmol/l SARS-CoV-2, RNA, NAAT (NEGATIVE) 02/01/22 02/01/22 Range/Units 15:53 17:16 WBC (4.8-10.8) K/uL RBC (4.7-6.1) M/uL Hgb (14.0-18.0) g/dL POC Hgb 13.9 L (14.0-18.0) g/dl Hct (42-52) % POC Hct 41 L (42-52) % MCV (80-100) fL MCH (25-34) pg MCHC (32-36) g/dL RDW Std Deviation (36.4-46.3) fL RDW Coeff of Miranda (11.5-14.5) % Plt Count (130-400) K/uL MPV (7.4-10.4) fL Immature Gran % (Auto) % Neut % (Auto) % Lymph % (Auto) % Rabun % (Auto) % Eos % (Auto) % Baso % (Auto) % Neut # (Auto) (1.4-6.5) K/uL Lymph # (Auto) (1.2-3.4) K/uL Rabun # (Auto) (0.11-0.59) K/uL Eos # (Auto) (0-0.5) K/uL Baso # (Auto) (0-0.2) K/uL Immature Gran # (Auto) (0.00-0.02) K/uL PT (9.0-12.0) Seconds INR (0.9-1.1) APTT (21.0-31.0) Seconds PTT Ratio POC Sodium 137 (135-144) mmol/L Sodium (136-145) mmol/L POC Potassium 4.3 (3.3-5.0) mmol/L Potassium (3.5-5.1) mmol/L POC Chloride 98 L (101-112) mmol/L Chloride (98-107) mmol/L Carbon Dioxide (21-32) mmol/L POC Total CO2 27 (24-31) mmol/L Anion Gap (3-11) POC Anion Gap 17.0 (16-25) mmol/L POC BUN 14 (7-18) mg/dl BUN (6-23) mg/dl Creatinine (0.6-1.4) mg/dl POC Creatinine 0.7 (0.6-1.3) mg/dl Est Cr Clr Drug Dosing ml/min Est GFR ( Amer) ml/min Est GFR (Non-Af Amer) ml/min BUN/Creatinine Ratio (10-20) Glucose (70-99(Fasting)) mg/dl POC Glucose (other) 138 H (70-99) mg/dl Calcium (8.5-10.1) mg/dl POC Ioniz Calcium Josie 1.15 (1.12-1.32) mmol/l SARS-CoV-2, RNA, NAAT NEGATIVE (NEGATIVE) Imaging Data Radiologist's Impression: Cervical Spine CT 02/01/22 14:55 CT SCAN OF THE CERVICAL SPINE CLINICAL HISTORY: Trauma. Fall COMPARISON STUDY: CT of the cervical spine dated 12/15/2019. TECHNIQUE: CT scan of the cervical spine is performed from the skull base to the upper thoracic spine. Images are reviewed in the axial, sagittal, and coronal planes. IV contrast was not administered for this examination. A dose lowering technique was utilized adhering to the principles of ALARA. Are FINDINGS: Skeletal structures: The skeletal structures are osteopenic. Vertebral body height and alignment are maintained. There is a type II fracture through the base of the odontoid process with apex volar angulation. This is best seen on sagittal image #44. There is 6 mm of widening between the fragments anteriorly. Additionally, there are acute fractures of the anterior C1 (axial image #162 (and the posterior ring of C1 bilaterally (sagittal images #32 and #51). The left sided posterior ring fracture is comminuted with displaced fragment. The atlantoaxial articulation is preserved noting productive degenerative change. Anterior osteophytes are seen throughout. The spinous processes appear intact. There is fusion of the posterior elements of C2 on C3 bilaterally. There are subacute to chronic right posterior second through fifth rib fractures. There is moderate to advanced multilevel cervical spondylosis. Uncovertebral and facet arthropathy contribute to foraminal narrowing at most levels. Intervertebral discs: There is moderate to advanced disc space narrowing at C5- C6, C6-C7, and C7-T1. The remaining disc spaces appear maintained. Central canal: Posterior disc osteophyte complexes at C5-C6 and C6-C7 may contribute to acquired compromise of the central canal. Soft tissues: Prevertebral soft tissue edema is noted at C2. The paraspinous soft tissues are normal as imaged. Calcified sialoliths are noted in the right parotid gland. Atherosclerotic calcification is noted in the carotid bulbs. Calvarium: The visualized calvarium at the skull base appears intact. Brain parenchyma: Partially visualized brain parenchyma at the skull base is within normal limits noting age-related involutional change. Sinuses and mastoids: The visualized paranasal sinuses are clear. There is a small left mastoid effusion. The right mastoid air cells are well pneumatized. Cerumen is noted in the external auditory canals. Lung apices: Clear as visualized. IMPRESSION: 1. Type II fracture through the base of the odontoid process with apex volar ang ulation as detailed above. 2. There are also fractures of the anterior and posterior rings of C1. 3. No additional acute fracture is seen involving the cervical spine. 4. Osteopenia and spondylotic change as above ACT 112: Negative or not required by law. Electronically signed by: Jason Ferreira M.D. 02/01/2022 3:[address] 02/01/22 14:55 CT SCAN OF THE BRAIN WITHOUT IV CONTRAST CLINICAL HISTORY: Trauma. Fall. COMPARISON STUDY: CT of the brain dated 12/15/2019. TECHNIQUE: Unenhanced axial CT scan of the brain is performed from the vertex to the skull base. A dose lowering technique was utilized adhering to the principles of ALARA. CT DOSE: 1309.58 mGy.cm FINDINGS: Brain parenchyma: There are age-related involutional changes noting moderate subcortical and periventricular microangiopathic change. There is no hemorrhage, mass effect, or evidence of acute territorial ischemia by CT criteria. Morales- white matter differentiation is preserved. No extra-axial fluid collection is seen. Ventricles, sulci, cisterns: Prominent secondary to involutional change. Intracranial vasculature: There is atherosclerotic calcification of the c avernous carotid and vertebral arteries. Calvarium: The skeletal structures are osteopenic. No depressed calvarial fracture is identified. Fractures of the anterior and posterior rings of C1 are partially visualized. Soft tissues: There is a frontal scalp hematoma. Contusion is also seen posteriorly at the vertex. Sinuses and mastoids: The paranasal sinuses are clear. There is trace left mastoid effusion. The right mastoid air cells are well pneumatized. Cerumen is noted in the external auditory canals. Orbits: The bony orbits are grossly intact. IMPRESSION: 1. There is no hemorrhage, mass effect, or evidence of acute territorial ischemia by CT criteria. 2. Acute C1 fractures are partially visualized. See report of cervical spine CT performed concurrently for detailed spinal findings. 3. Frontal scalp hematoma. 4. No depressed calvarial fracture is seen. ACT 112: Negative or not required by law. Electronically signed by: Jason Ferreira M.D. 02/01/2022 3:31 PM Abdomen/Pelvis CT 02/01/22 15:46 CT SCAN OF THE ABDOMEN AND PELVIS WITH IV CONTRAST CLINICAL HISTORY: Trauma. Fall. COMPARISON STUDY: Abdominal CT dated 09/28/2021. TECHNIQUE: Following the IV administration of 94 cc of Optiray 320, CT scan of the abdomen and pelvis is performed from the lung bases to the proximal femora. Images are reviewed in the axial, sagittal, and coronal planes. IV contrast was administered without complication. A dose lowering technique was utilized adhering to the principles of ALARA. CT DOSE: 1108.30 mGy.cm FINDINGS: Lung bases: The heart is mildly enlarged and without pericardial effusion. The coronary arteries are densely calcified. There is a small right pleural effusion with bibasilar scarring/atelectasis. No basilar pneumothorax is identified. Liver: The contrast-enhanced liver is normal in size, contour, and attenuation. There is no intrahepatic biliary ductal dilatation. The hepatic veins and portal veins are patent. Mild periportal edema is noted. Gallbladder: Unremarkable. Spleen: Normal in size and attenuation. Pancreas: Atrophic and grossly unremarkable. Adrenal glands: Unremarkable. Kidneys: The contrast enhanced kidneys demonstrate cortical atrophy and are without hydronephrosis. The kidneys enhance symmetrically. Abdominal vasculature: There is advanced atherosclerotic calcification and ectasia of the abdominal aorta. There is nonaneurysmal dilatation of the distal descending abdominal aorta which measures up to 3.3 cm diameter. There is mild aneurysmal dilatation of both internal iliac arteries which measure up to 2.0 cm. Bowel: There is rectosigmoid fecal retention and mild to moderate constipation. No bowel obstruction is seen. There are scattered colonic diverticula without CT evidence of acute diverticulitis. The appendix is not identified and reported surgically absent. Peritoneum: There is no intraperitoneal free air or abdominal ascites. Lymphadenopathy: None. Pelvic viscera: The prostate gland is diminutive and heterogeneous. The bladder wall is thickened and trabeculated indicating chronic outlet obstruction. Question mild pericystic inflammation. Skeletal structures: The skeletal structures are osteopenic. Spondylotic and postoperative change is noted in the lumbar spine. The lumbosacral spine, bony pelvis, and proximal femora appear intact. There are chronic/healed bilateral rib fractures. No lytic or blastic lesions are seen. IMPRESSION: 1. There is no evidence of solid organ injury in the abdomen or pelvis. 2. Cardiomegaly and small right pleural effusion. This is similar to previous. 3. The appearance of the bladder indicates chronic outlet obstruction. Question mild pericystic infiltration. Correlate with clinical findings and urinalysis. 4. There is rectosigmoid fecal retention and mild to moderate constipation. 5. An infrarenal abdominal aortic aneurysm measures up to 3.3 cm. 6. Additional findings as above. ACT 112: Negative or not required by law. Electronically signed by: Jason Ferreira M.D. 02/01/2022 4:27 PM Chest X-Ray 02/01/22 15:46 SINGLE VIEW CHEST CLINICAL HISTORY: Fall. FINDINGS: An AP, portable, upright chest radiograph is compared to study dated 08/24/2017. The heart is enlarged noting atherosclerotic calcification of the thoracic aorta. The pulmonary vasculature is noncongested. Chronic interstitial thickening and elevation of the right hemidiaphragm is similar to previous. Scarring/atelectasis is noted at the lung bases. There is trace right pleural effusion. No airspace consolidation typical for pneumonia is seen. No pneumothorax is identified. The skeletal structures are osteopenic. The bony thorax is grossly intact. IMPRESSION: Cardiomegaly and small right pleural effusion. ACT 112: Negative or not required by law. Electronically signed by: Jason Ferreira M.D. 02/01/2022 4:34 PM [facility] Narrative 1448: The patient was evaluated in room A11. A complete history and physical exam was performed Cardiac monitoring: An order was placed for continuous cardiac monitoring. The monitor shows a rate of 70 with atrial fibrilation rhythm 1546: Vital signs stable. Labs within normal limits therapeutic INR 2.2. CT of the head within normal limits. CT of the C-spine C1 and type II dens fracture. Patient will be sent for additional CT of the abdomen given his therapeutic INR and traumatic findings on CT C-spine. Patient maintained in c-collar. 1635: Chest x-ray and CT abdomen showed no acute traumatic injury. Will page Dr. Fraire on-call orthospine about the C1 and C2 fracture. 1715: Still no response from Dr. Fraire. Will contact [facility] about potential transfer. Forehead wound closed with Dermabond by ZULY Dickinson see his procedure note. 1730: Spoke with [facility] surgery Dr. Gu who accepts the patient to the SICU. Trauma attending asking for Kcentra 25U/kg to be given to the patient. Spoke with Dr. Vargas he states she will put in the order for Kcentra but also recommends given vitamin K 10 mg IV. 10 mg vitamin K ordered for the patient. Discussed with patient and at bedside and they are okay with transferring if we are not able to keep the patient at this facility. 1750: Dr. Fraire did call back and states that we can manage this patient here at this facility and no acute surgical intervention is planned at this time. He states he will evaluate the patient in the morning. He states admit the patient to the hospitalist team. Spoke with [facility] hospitalist Dr. Wise who states he will evaluate the patient for admission. Impression & Plan Closed dens fracture, C1 cervical fracture Discharge Plan Visit Data Chief Complaint: Fall Stated Complaint: FALL, LAC TO HEAD ED Provider: Alireza Leach Discharge Problem: Closed dens fracture, C1 cervical fracture Patient Disposition: Admitted As Inpatient Discharge Instructions Interventions: ED Discharge Assessment Last Done: 02/01/22 19:49
[2022-02-01 15:26] LABS: Basophils # (auto) 0.04 K/uL (0-0.2); Basophils % (auto) 0.4 %; Eosinophils # (auto) 0.26 K/uL (0-0.5); Eosinophils % (auto) 2.9 %; Hematocrit (blood only) 40.6 % (42-52); Hemoglobin 13.6 g/dL (14.0-18.0); Immature Granulocytes # (auto) 0.03 K/uL (0.00-0.02); Immature Granulocytes % (auto) 0.3 %; Lymphocytes % (auto) 21.4 %; Mean Corpuscular Hemoglobin 34.1 pg (25-34); Mean Corpuscular Hgb Conc 33.5 g/dL (32-36); Mean Corpuscular Volume 101.8 fL (80-100); Mean Platelet Volume 9.6 fL (7.4-10.4); Monocytes # (auto) 1.56 K/uL (0.11-0.59); Monocytes % (auto) 17.5 %; Neutrophils % (auto) 57.5 %; Platelet Count 239 K/uL (130-400); RDW Coefficient of Variation 13.9 % (11.5-14.5); RDW Standard Deviation 52.4 fL (36.4-46.3); Red Blood Count 3.99 M/uL (4.7-6.1); White Blood Count 8.89 K/uL (4.8-10.8)
--- NOTE | 2022-02-01 15:32 | CT Scan Report ---
CT SCAN OF THE BRAIN WITHOUT IV CONTRAST CLINICAL HISTORY: Trauma. Fall. COMPARISON STUDY: CT of the brain dated 12/15/2019. TECHNIQUE: Unenhanced axial CT scan of the brain is performed from the vertex to the skull base. A do se lowering technique was utilized adhering to the principles of ALARA. CT DOSE: 1309.58 mGy.cm FINDINGS: Brain parenchyma: There are age-related involutional changes noting moderate subcortical and periven tricular microangiopathic change. There is no hemorrhage, mass effect, or evidence of acute territori al ischemia by CT criteria. Morales-white matter differentiation is preserved. No extra-axial fluid idalia ection is seen. Ventricles, sulci, cisterns: Prominent secondary to involutional change. Intracranial vasculature: There is atherosclerotic calcification of the cavernous carotid and vertebr al arteries. Calvarium: The skeletal structures are osteopenic. No depressed calvarial fracture is identified. Fra ctures of the anterior and posterior rings of C1 are partially visualized. Soft tissues: There is a frontal scalp hematoma. Contusion is also seen posteriorly at the vertex. Sinuses and mastoids: The paranasal sinuses are clear. There is trace left mastoid effusion. The righ t mastoid air cells are well pneumatized. Cerumen is noted in the external auditory canals. Orbits: The bony orbits are grossly intact. IMPRESSION: 1. There is no hemorrhage, mass effect, or evidence of acute territorial ischemia by CT criteria. 2. Acute C1 fractures are partially visualized. See report of cervical spine CT performed concurrentl y for detailed spinal findings. 3. Frontal scalp hematoma. 4. No depressed calvarial fracture is seen. ACT 112: Negative or not required by law. Electronically signed by: Jason Ferreira M.D. 02/01/2022 3:31 PM
[2022-02-01 15:36] LABS: INR 2.2 (0.9-1.1); Partial Thromboplastin Ratio 1.1; Partial Thromboplastin Time 31.3 Seconds (21.0-31.0); Prothrombin Time 22.1 Seconds (9.0-12.0)
--- NOTE | 2022-02-01 15:44 | CT Scan Report ---
CT SCAN OF THE CERVICAL SPINE CLINICAL HISTORY: Trauma. Fall COMPARISON STUDY: CT of the cervical spine dated 12/15/2019. TECHNIQUE: CT scan of the cervical spine is performed from the skull base to the upper thoracic spine . Images are reviewed in the axial, sagittal, and coronal planes. IV contrast was not administered fo r this examination. A dose lowering technique was utilized adhering to the principles of ALARA. Are FINDINGS: Skeletal structures: The skeletal structures are osteopenic. Vertebral body height and alignment are maintained. There is a type II fracture through the base of the odontoid process with apex volar angu lation. This is best seen on sagittal image #44. There is 6 mm of widening between the fragments ante riorly. Additionally, there are acute fractures of the anterior C1 (axial image #162 (and the posteri or ring of C1 bilaterally (sagittal images #32 and #51). The left sided posterior ring fracture is co mminuted with displaced fragment. The atlantoaxial articulation is preserved noting productive degene rative change. Anterior osteophytes are seen throughout. The spinous processes appear intact. There i s fusion of the posterior elements of C2 on C3 bilaterally. There are subacute to chronic right poste rior second through fifth rib fractures. There is moderate to advanced multilevel cervical spondylosi s. Uncovertebral and facet arthropathy contribute to foraminal narrowing at most levels. Intervertebral discs: There is moderate to advanced disc space narrowing at C5-C6, C6-C7, and C7-T1. The remaining disc spaces appear maintained. Central canal: Posterior disc osteophyte complexes at C5-C6 and C6-C7 may contribute to acquired comp romise of the central canal. Soft tissues: Prevertebral soft tissue edema is noted at C2. The paraspinous soft tissues are normal as imaged. Calcified sialoliths are noted in the right parotid gland. Atherosclerotic calcification i s noted in the carotid bulbs. Calvarium: The visualized calvarium at the skull base appears intact. Brain parenchyma: Partially visualized brain parenchyma at the skull base is within normal limits not ing age-related involutional change. Sinuses and mastoids: The visualized paranasal sinuses are clear. There is a small left mastoid effus ion. The right mastoid air cells are well pneumatized. Cerumen is noted in the external auditory robyn ls. Lung apices: Clear as visualized. IMPRESSION: 1. Type II fracture through the base of the odontoid process with apex volar angulation as detailed a belen. 2. There are also fractures of the anterior and posterior rings of C1. 3. No additional acute fracture is seen involving the cervical spine. 4. Osteopenia and spondylotic change as above ACT 112: Negative or not required by law. Electronically signed by: Jason Ferreira M.D. 02/01/2022 3:42 PM
[2022-02-01 15:54] LABS: BUN Creatinine Ratio 21.9 (10-20); Calcium 8.7 mg/dl (8.5-10.1); Creatinine Clr Calc Pharmacy 100.7 ml/min; Potassium 4.2 mmol/L (3.5-5.1)
[2022-02-01] MEDS ORDERED: OPTIRAY 320 100ml IV ONE (16:02)
[2022-02-01 16:06] LABS: iSTAT Creatinine 0.7 mg/dl (0.6-1.3); iSTAT Hemoglobin 13.9 g/dl (14.0-18.0); iSTAT Ionized Calcium 1.15 mmol/l (1.12-1.32); iSTAT Potassium 4.3 mmol/L (3.3-5.0)
--- NOTE | 2022-02-01 16:29 | CT Scan Report ---
CT SCAN OF THE ABDOMEN AND PELVIS WITH IV CONTRAST CLINICAL HISTORY: Trauma. Fall. COMPARISON STUDY: Abdominal CT dated 09/28/2021. TECHNIQUE: Following the IV administration of 94 cc of Optiray 320, CT scan of the abdomen and pelvi s is performed from the lung bases to the proximal femora. Images are reviewed in the axial, sagittal , and coronal planes. IV contrast was administered without complication. A dose lowering technique wa s utilized adhering to the principles of ALARA. CT DOSE: 1108.30 mGy.cm FINDINGS: Lung bases: The heart is mildly enlarged and without pericardial effusion. The coronary arteries are densely calcified. There is a small right pleural effusion with bibasilar scarring/atelectasis. No ba silar pneumothorax is identified. Liver: The contrast-enhanced liver is normal in size, contour, and attenuation. There is no intrahepa tic biliary ductal dilatation. The hepatic veins and portal veins are patent. Mild periportal edema i s noted. Gallbladder: Unremarkable. Spleen: Normal in size and attenuation. Pancreas: Atrophic and grossly unremarkable. Adrenal glands: Unremarkable. Kidneys: The contrast enhanced kidneys demonstrate cortical atrophy and are without hydronephrosis. T he kidneys enhance symmetrically. Abdominal vasculature: There is advanced atherosclerotic calcification and ectasia of the abdominal a bhavna. There is nonaneurysmal dilatation of the distal descending abdominal aorta which measures up to 3.3 cm diameter. There is mild aneurysmal dilatation of both internal iliac arteries which measure u p to 2.0 cm. Bowel: There is rectosigmoid fecal retention and mild to moderate constipation. No bowel obstruction is seen. There are scattered colonic diverticula without CT evidence of acute diverticulitis. The rahul endix is not identified and reported surgically absent. Peritoneum: There is no intraperitoneal free air or abdominal ascites. Lymphadenopathy: None. Pelvic viscera: The prostate gland is diminutive and heterogeneous. The bladder wall is thickened and trabeculated indicating chronic outlet obstruction. Question mild pericystic inflammation. Skeletal structures: The skeletal structures are osteopenic. Spondylotic and postoperative change is noted in the lumbar spine. The lumbosacral spine, bony pelvis, and proximal femora appear intact. The re are chronic/healed bilateral rib fractures. No lytic or blastic lesions are seen. IMPRESSION: 1. There is no evidence of solid organ injury in the abdomen or pelvis. 2. Cardiomegaly and small right pleural effusion. This is similar to previous. 3. The appearance of the bladder indicates chronic outlet obstruction. Question mild pericystic infil tration. Correlate with clinical findings and urinalysis. 4. There is rectosigmoid fecal retention and mild to moderate constipation. 5. An infrarenal abdominal aortic aneurysm measures up to 3.3 cm. 6. Additional findings as above. ACT 112: Negative or not required by law. Electronically signed by: Jason Ferreira M.D. 02/01/2022 4:27 PM
--- NOTE | 2022-02-01 16:36 | XRay Report ---
SINGLE VIEW CHEST CLINICAL HISTORY: Fall. FINDINGS: An AP, portable, upright chest radiograph is compared to study dated 08/24/2017. The heart i s enlarged noting atherosclerotic calcification of the thoracic aorta. The pulmonary vasculature is n oncongested. Chronic interstitial thickening and elevation of the right hemidiaphragm is similar to p revious. Scarring/atelectasis is noted at the lung bases. There is trace right pleural effusion. No a irspace consolidation typical for pneumonia is seen. No pneumothorax is identified. The skeletal stru ctures are osteopenic. The bony thorax is grossly intact. IMPRESSION: Cardiomegaly and small right pleural effusion. ACT 112: Negative or not required by law. Electronically signed by: Jason Ferreira M.D. 02/01/2022 4:34 PM
--- NOTE | 2022-02-01 17:20 | Emergency Department Note ---
ED Visit Note 87-year-old male who I was asked by Dr. Leach, ED attending physician, to perform a left forehead laceration evaluation and repair. Please see Dr. Liliya neely's dictation for further treatment and final disposition. PROCEDURE NOTE: Examination of the left lower forehead shows 2 cm laceration that is mostly abraded epidermis, however the lower middle portion has an underlying laceration approximately 1 cm in size that will require further approximation. The tissue is an adequate approximation, therefore I do feel that Dermabond repair is adequate. The wound was cleansed with a solution of hydrogen peroxide and normal saline. Exploration of the wound does not show any underlying debris. The laceration is not deep, with only approximately 2 mm of depth. After adequate cleansing and drying the wound, Dermabond was applied over the entire laceration and surrounding abrasion. Total application size was approximately 2 cm x 1 cm. .
[2022-02-01] MEDS ORDERED: PHYTONADIONE 10 MG in DEXTROSE 5% 50 ML IV ONE (17:24)
[2022-02-01] MEDS ORDERED: PROTHROMBIN COMP CONC- KCENTRA 2,500 UNITS in SYRINGE 0 ML IV SCH (17:26)
--- NOTE | 2022-02-01 18:17 | History & Physical Report ---
Date of Service February 01, 2022 Assessment & Plan (1) Cervical spine fracture: Plan: -Type II fracture through base of the odontoid process with apex volar angulation as well as fracture of the anterior and posterior rings of C1. -Orthopedic surgery consulted by ED provider, planning to manage nonsurgically, patient will be placed in [place] J collar. -Hold warfarin for 48 hours, okay to restart after 48 hours without bridge. (2) Paroxysmal atrial fibrillation: Plan: -In A. fib now, suspected to be permanent by Dr. Felix in August. -Rate controlled on metoprolol 50 mg daily, continue this. -Hold warfarin for now, plan to restart in 48 hours without bridge. (3) Peripheral vascular disease: Plan: -Hx of right fem-pop bypass in 2013. History of right popliteal stent. Follows with Dr. Jonas. -Patient underwent venous ablation on 01/10/2022 on the right. -With left lower leg venous stasis ulcer and open wound of right lower leg, on 01/27 topical Xylocaine was applied to both and they were debrided. -Wound dressing Aquacel and Coban light wraps, change Umazzd-Rajpvcprm-Kvoini. -Lasix 20 mg daily with compression wraps. Plan for compression stockings when wounds are healed. -Plavix 75 mg daily, hold for now due to C1-2 fracture. (4) CAD (coronary artery disease): Plan: -No chest pain or anginal equivalent today. -Presumed CAD due to distal anterior wall ischemia suggested on stress echo on 07/08/2013. -Continue metoprolol and atorvastatin; Plavix and warfarin being held. (5) Aortic stenosis: Plan: -Noted on echo from 08/11, mild to moderate. -Seen by Dr. Felix in 09/11, asymptomatic, continue surveillance for now. (6) HTN (hypertension): Plan: -Continue with metoprolol 50 mg daily. (7) Hyperlipidemia: Plan: -Continue atorvastatin 20 mg daily. (8) Chronic constipation: Plan: -Ongoing issue since a fall in August 2021 resulting in sacral fractures without signs of cauda equina syndrome on MRI. Takes 3 pysllium fiber capsules and 200 daily which helps him. Typically moves bowels every other day. -Moderate fecal retention noted on imaging today. -Continue home regimen with Miralax prn. (9) Urinary retention: Plan: -Ongoing issue since a fall in August 2021 resulting in sacral fractures without signs of cauda equina syndrome on MRI. -Was seen by urology, previously with indwelling catheter however this has been removed and patient is wearing adult briefs and practicing timed voiding which has reduced incontinence. -Continue to monitor UO, will bladder scan now and order after voiding with orders to straight cath > 300 cc PVR. Plan: -Admit to med/tele. -SCDs for DVT ppx, holding anticoagulation for 48 hours d/t c spine fracture. -DNR/DNI. History of Present Illness Chief Complaint: C-spine fracture. 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 Patient was standing while putting his shirt on and fell, hitting his head on impact. EMS was called and he was transported to our emergency room for further evaluation. He denies LOC, loss of vision, chest pain, palpitations, SOB, numbness/tingling, or weakness but does have pain in his head and neck, 5/10 at rest and 8/10 with any movement of neck. In ED, is hypertensive 165/120, heart rate 106, otherwise vital signs within normal limits and stable. Labs significant for PT 22.1, INR 2.2, glucose 129. Otherwise unremarkable. CT spine showed type II fracture through base of the odontoid process with apex volar angulation as well as fracture of the anterior and posterior rings of C1. Head CT negative for hemorrhage, mass-effect, acute territorial ischemia. CT A/P showed no solid organ injury, significant for moderate constipation and possible chronic bladder outlet obstruction. Infrarenal abdominal aortic aneurysm 3.3 cm, noted on previous imaging from September as well. CXR showed cardiomegaly with small right pleural effusion. Patient received Kcentra and vitamin K in ED. Orthopedic surgery was consulted, as well as hospitalist service for further evaluation and admission. Allergies Allergy/AdvReac Type Severity Reaction Status Date / Time hall Allergy Severe FRESH Verified 02/01/22 09:53 CHERRIES CAUSE THROAT SWELLING/BREATHING DIFFICULTY Home Medications Medication Instructions Recorded Confirmed Type ascorbic acid (vitamin C) 500 mg 1,000 mg PO DAILY cap 07/09/18 02/01/22 History capsule biotin 1 mg capsule 1 mg PO DAILY 07/09/18 02/01/22 History calcium 1 tab PO DAILY tab 07/09/18 02/01/22 History tuq-hno-[id number]-Ok-utvivw-Zp-boron 250 mg-40 mg-125 unit tablet (Citracal-D3 Plus Magnesium) cholecalciferol (vitamin D3) 100 4,000 units PO DAILY 07/09/18 02/01/22 History mcg (4,000 unit) capsule coenzyme Q10 200 mg capsule 200 mg PO DAILY 07/09/18 02/01/22 History lutein 6 mg capsule 6 mg PO DAILY 07/09/18 02/01/22 History niacin 250 mg tablet 250 mg PO DAILY 07/09/18 02/01/22 History selenium 200 mcg tablet 200 mcg PO DAILY 07/09/18 02/01/22 History vitamin B complex 1 cap PO DAILY 07/09/18 02/01/22 History vitamin E (dl, acetate) 180 mg 400 units PO DAILY 07/09/18 02/01/22 History (400 unit) capsule omega-3 fatty acids 1,000 mg 2,000 mg PO DAILY cap 07/29/19 02/01/22 History capsule clopidogrel 75 mg tablet (Plavix) 75 mg PO DAILY #90 tab 08/16/21 02/01/22 Rx atorvastatin 20 mg tablet (Lipitor) 20 mg PO DAILY #90 tab 11/28/21 02/01/22 Rx docusate sodium 100 mg capsule 200 mg PO DAILY cap 12/23/21 02/01/22 History (Colace) metoprolol succinate 50 mg 50 mg PO DAILY #90 tab 01/05/22 02/01/22 Rx tablet,extended release 24 hr furosemide 20 mg tablet (Lasix) 20 mg PO DAILY #30 tab 01/23/22 02/01/22 Rx chromium picolinate 200 mcg tablet 200 mcg PO DAILY 02/01/22 02/01/22 History warfarin 7.5 mg tablet 7.5 mg PO DAILY 02/01/22 02/01/22 History Past Med/Surg History Medical History Aortic regurgitation Aortic stenosis Arteriosclerotic heart disease Cervical radiculopathy Hypertension Impaired fasting glucose Lumbar canal stenosis Nephrolithiasis Osteopenia Paroxysmal A-fib Paroxysmal ventricular tachycardia Peripheral vascular disease of lower extremity Polyneuropathy Prostate cancer Surgical History H/O arthroscopy of shoulder left H/O foot surgery H/O prostate biopsy H/O repair of rotator cuff History of carpal tunnel surgery History of lumbar laminectomy Hx of appendectomy Hx of tonsillectomy Status post Mohs surgery Family History Father Dementia Arterial vascular disease Myocardial infarction Denies family history of Ovarian cancer Prostate cancer Breast cancer Colorectal cancer Social History Smoking Status: Never smoker Second Hand Exposure: No; Hx Alcohol Use: Yes (daily glass of wine) Alcohol type: wine Hx Substance Use: No Preferred Language: Estonian Communication Ability: Effective Visual Impairment: Limited Hearing Ability: Normal 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: No marital status: Current Living Situation: Spouse current occupational status: retired How many Children do You have: 1 Feels Safe at Home: Yes Childhood Exposure to Second-Hand Smoke: No caffeine: Yes (tea daily ) Dental Care, Regularly: Yes Physical Activity Frequency: Does not Exercise Seatbelt Use: always Sunscreen Use: No Assistive Devices: Cane Review of Systems Review of Systems: Constitutional: No fever/chills, weakness, fatigue, myalgias, anorexia, night sweats Eyes: No diplopia, no worsening or blurred vision ENT: normal hearing, no trouble swallowing Respiratory: No cough, sputum, dyspnea at rest or on exertion Cardiovascular: No chest pain, tightness or palpitations Abdomen: No pain, nausea, vomiting, diarrhea or constipation : Denies dysuria, hematuria, increased urgency/frequency, urinary retention Musculoskeletal: Reports head and neck pain; No other joint pain, calf pain, swelling Neurologic: No weakness, numbness/tingling, or balance problems Psychiatric: No anxiety or depression Skin: No rash or itch Physical Exam Physical Exam: General: awake, alert, no apparent distress, with C-collar on Head: 2 cm left forehead laceration ENT: PERRL, EOMI, no pharyngeal exudate, mucous membranes moist Chest: Clear to auscultation, on room air, no adventitious breath sounds Cardiac: Regular rate and rhythm, no murmur, no JVD, normal peripheral pulses, good capillary refill Abdominal: NABS x 4 quadrants, soft, nontender to palpation, no rebound, guarding or tenderness Extremities: Normal inspection, no peripheral edema or erythema, calfs nontender to palpation Psych: Normal mood and affect Neuro: AAO x 3, strength intact bilaterally and rated 5/5, no motor deficits, speech is clear, no peripheral sensory deficits Skin: no rash or erythema Results & Data Results & Data ([facility]) Vital Signs (Past 12 Hours) Vital Signs Temp Pulse Pulse Resp BP BP Pulse Ox 02/01/22 16:57 106 H 20 165/120 H 96 02/01/22 14:57 37.0 C 70 97 H 20 171/103 H 171/103 H 95 02/01/22 14:55 94 Laboratory Results Abnormal lab results 02/01/22 02/01/22 02/01/22 Range/Units 15:05 15:05 15:05 RBC 3.99 L (4.7-6.1) M/uL Hgb 13.6 L (14.0-18.0) g/dL POC Hgb (14.0-18.0) g/dl Hct 40.6 L (42-52) % POC Hct (42-52) % MCV 101.8 H (80-100) fL MCH 34.1 H (25-34) pg RDW Std Deviation 52.4 H (36.4-46.3) fL [place] # (Auto) 1.56 H (0.11-0.59) K/uL Immature Gran # (Auto) 0.03 H (0.00-0.02) K/uL PT 22.1 H (9.0-12.0) Seconds INR 2.2 H (0.9-1.1) APTT 31.3 H (21.0-31.0) Seconds Sodium 135 L (136-145) mmol/L POC Chloride (101-112) mmol/L BUN/Creatinine Ratio 21.9 H (10-20) Glucose 129 H (70-99(Fasting)) mg/dl POC Glucose (other) (70-99) mg/dl 02/01/22 Range/Units 15:53 RBC (4.7-6.1) M/uL Hgb (14.0-18.0) g/dL POC Hgb 13.9 L (14.0-18.0) g/dl Hct (42-52) % POC Hct 41 L (42-52) % MCV (80-100) fL MCH (25-34) pg RDW Std Deviation (36.4-46.3) fL [place] # (Auto) (0.11-0.59) K/uL Immature Gran # (Auto) (0.00-0.02) K/uL PT (9.0-12.0) Seconds INR (0.9-1.1) APTT (21.0-31.0) Seconds Sodium (136-145) mmol/L POC Chloride 98 L (101-112) mmol/L BUN/Creatinine Ratio (10-20) Glucose (70-99(Fasting)) mg/dl POC Glucose (other) 138 H (70-99) mg/dl Diagnostic Findings Cervical Spine CT 02/01/22 14:55 CT SCAN OF THE CERVICAL SPINE CLINICAL HISTORY: Trauma. Fall COMPARISON STUDY: CT of the cervical spine dated 12/15/2019. TECHNIQUE: CT scan of the cervical spine is performed from the skull base to the upper thoracic spine. Images are reviewed in the axial, sagittal, and coronal planes. IV contrast was not administered for this examination. A dose lowering technique was utilized adhering to the principles of ALARA. Are FINDINGS: Skeletal structures: The skeletal structures are osteopenic. Vertebral body height and alignment are maintained. There is a type II fracture through the base of the odontoid process with apex volar angulation. This is best seen on sagittal image #44. There is 6 mm of widening between the fragments anteriorly. Additionally, there are acute fractures of the anterior C1 (axial image #162 (and the posterior ring of C1 bilaterally (sagittal images #32 and #51). The left sided posterior ring fracture is comminuted with displaced fragment. The atlantoaxial articulation is preserved noting productive degenerative change. Anterior osteophytes are seen throughout. The spinous processes appear intact. There is fusion of the posterior elements of C2 on C3 bilaterally. There are subacute to chronic right posterior second through fifth rib fractures. There is moderate to advanced multilevel cervical spondylosis. Uncovertebral and facet arthropathy contribute to foraminal narrowing at most levels. Intervertebral discs: There is moderate to advanced disc space narrowing at C5- C6, C6-C7, and C7-T1. The remaining disc spaces appear maintained. Central canal: Posterior disc osteophyte complexes at C5-C6 and C6-C7 may contribute to acquired compromise of the central canal. Soft tissues: Prevertebral soft tissue edema is noted at C2. The paraspinous soft tissues are normal as imaged. Calcified sialoliths are noted in the right parotid gland. Atherosclerotic calcification is noted in the carotid bulbs. Calvarium: The visualized calvarium at the skull base appears intact. Brain parenchyma: Partially visualized brain parenchyma at the skull base is within normal limits noting age-related involutional change. Sinuses and mastoids: The visualized paranasal sinuses are clear. There is a small left mastoid effusion. The right mastoid air cells are well pneumatized. Cerumen is noted in the external auditory canals. Lung apices: Clear as visualized. IMPRESSION: 1. Type II fracture through the base of the odontoid process with apex volar angulation as detailed above. 2. There are also fractures of the anterior and posterior rings of C1. 3. No additional acute fracture is seen involving the cervical spine. 4. Osteopenia and spondylotic change as above ACT 112: Negative or not required by law. Electronically signed by: Jason Ferreira M.D. 02/01/2022 3:[address] 02/01/22 14:55 CT SCAN OF THE BRAIN WITHOUT IV CONTRAST CLINICAL HISTORY: Trauma. Fall. COMPARISON STUDY: CT of the brain dated 12/15/2019. TECHNIQUE: Unenhanced axial CT scan of the brain is performed from the vertex to the skull base. A dose lowering technique was utilized adhering to the principles of ALARA. CT DOSE: 1309.58 mGy.cm FINDINGS: Brain parenchyma: There are age-related involutional changes noting moderate subcortical and periventricular microangiopathic change. There is no hemorrhage, mass effect, or evidence of acute territorial ischemia by CT criteria. Morales- white matter differentiation is preserved. No extra-axial fluid collection is seen. Ventricles, sulci, cisterns: Prominent secondary to involutional change. Intracranial vasculature: There is atherosclerotic calcification of the cavernous carotid and vertebral arteries. Calvarium: The skeletal structures are osteopenic. No depressed calvarial fracture is identified. Fractures of the anterior and posterior rings of C1 are partially visualized. Soft tissues: There is a frontal scalp hematoma. Contusion is also seen posteriorly at the vertex. Sinuses and mastoids: The paranasal sinuses are clear. There is trace left mastoid effusion. The right mastoid air cells are well pneumatized. Cerumen is noted in the external auditory canals. Orbits: The bony orbits are grossly intact. IMPRESSION: 1. There is no hemorrhage, mass effect, or evidence of acute territorial ischemia by CT criteria. 2. Acute C1 fractures are partially visualized. See report of cervical spine CT performed concurrently for detailed spinal findings. 3. Frontal scalp hematoma. 4. No depressed calvarial fracture is seen. ACT 112: Negative or not required by law. Electronically signed by: Jason Ferreira M.D. 02/01/2022 3:31 PM Abdomen/Pelvis CT 02/01/22 15:46 CT SCAN OF THE ABDOMEN AND PELVIS WITH IV CONTRAST CLINICAL HISTORY: Trauma. Fall. COMPARISON STUDY: Abdominal CT dated 09/28/2021. TECHNIQUE: Following the IV administration of 94 cc of Optiray 320, CT scan of the abdomen and pelvis is performed from the lung bases to the proximal femora. Images are reviewed in the axial, sagittal, and coronal planes. IV contrast was administered without complication. A dose lowering technique was utilized adhering to the principles of ALARA. CT DOSE: 1108.30 mGy.cm FINDINGS: Lung bases: The heart is mildly enlarged and without pericardial effusion. The coronary arteries are densely calcified. There is a small right pleural effusion with bibasilar scarring/atelectasis. No basilar pneumothorax is identified. Liver: The contrast-enhanced liver is normal in size, contour, and attenuation. There is no intrahepatic biliary ductal dilatation. The hepatic veins and portal veins are patent. Mild periportal edema is noted. Gallbladder: Unremarkable. Spleen: Normal in size and attenuation. Pancreas: Atrophic and grossly unremarkable. Adrenal glands: Unremarkable. Kidneys: The contrast enhanced kidneys demonstrate cortical atrophy and are without hydronephrosis. The kidneys enhance symmetrically. Abdominal vasculature: There is advanced atherosclerotic calcification and ectasia of the abdominal aorta. There is nonaneurysmal dilatation of the distal descending abdominal aorta which measures up to 3.3 cm diameter. There is mild aneurysmal dilatation of both internal iliac arteries which measure up to 2.0 cm. Bowel: There is rectosigmoid fecal retention and mild to moderate constipation. No bowel obstruction is seen. There are scattered colonic diverticula without CT evidence of acute diverticulitis. The appendix is not identified and reported surgically absent. Peritoneum: There is no intraperitoneal free air or abdominal ascites. Lymphadenopathy: None. Pelvic viscera: The prostate gland is diminutive and heterogeneous. The bladder wall is thickened and trabeculated indicating chronic outlet obstruction. Question mild pericystic inflammation. Skeletal structures: The skeletal structures are osteopenic. Spondylotic and postoperative change is noted in the lumbar spine. The lumbosacral spine, bony pelvis, and proximal femora appear intact. There are chronic/healed bilateral rib fractures. No lytic or blastic lesions are seen. IMPRESSION: 1. There is no evidence of solid organ injury in the abdomen or pelvis. 2. Cardiomegaly and small right pleural effusion. This is similar to previous. 3. The appearance of the bladder indicates chronic outlet obstruction. Question mild pericystic infiltration. Correlate with clinical findings and urinalysis. 4. There is rectosigmoid fecal retention and mild to moderate constipation. 5. An infrarenal abdominal aortic aneurysm measures up to 3.3 cm. 6. Additional findings as above. ACT 112: Negative or not required by law. Electronically signed by: Jason Ferreira M.D. 02/01/2022 4:27 PM Chest X-Ray 02/01/22 15:46 SINGLE VIEW CHEST CLINICAL HISTORY: Fall. FINDINGS: An AP, portable, upright chest radiograph is compared to study dated 08/24/2017. The heart is enlarged noting atherosclerotic calcification of the thoracic aorta. The pulmonary vasculature is noncongested. Chronic interstitial thickening and elevation of the right hemidiaphragm is similar to previous. Sca rring/atelectasis is noted at the lung bases. There is trace right pleural effusion. No airspace consolidation typical for pneumonia is seen. No pneumothorax is identified. The skeletal structures are osteopenic. The bony thorax is grossly intact. IMPRESSION: Cardiomegaly and small right pleural effusion. ACT 112: Negative or not required by law. Electronically signed by: Jason Ferreira M.D. 02/01/2022 4:34 PM Supervising Physician Co-Signing Physician Notes Patient seen and examined, chart reviewed, case discussed with Alison Nino and I agree with the assessment and plan as above except as otherwise noted above. CT spine showed type II fracture through base of the odontoid process with apex volar angulation as well as fracture of the anterior and posterior rings of C1. Head CT negative for hemorrhage, mass-effect, acute territorial ischemia. CT A/P showed no solid organ injury, significant for moderate constipation and possible chronic bladder outlet obstruction. Infrarenal abdominal aortic aneurysm 3.3 cm, noted on previous imaging from September.CXR showed cardiomegaly with small right pleural effusion. Did discuss case with Dr. Fraire, pt is OK for placement into [place] [facility] and conservative management, no operative intervention planned at this time. Anticipate healing nonunion. Hold warfarin 48 hours then resume. May hold antiplatelet for 24-48 hours then resume. Pt is on afib ppx, low day to day risk of thrombosis/stroke which is exceeding short term by bleeding risk. Neurologically intact without acute numbness/tingling/focal weakness. PG Care Time/CCT Total # of Minutes Spent Total Time Spent with Patient: Total time spent is greater than 50% in coordination of care (as documented) at patient's floor/unit and/or counseling patient: Coding Level of Care Code 49997 Initial Inpt Care Lvl 3 Diagnoses Cervical spine fracture S12.9XXA Chronic constipation K59.09 Urinary retention R33.9 Aortic stenosis I35.0 HTN (hypertension) I10 Paroxysmal atrial fibrillation I48.0 Peripheral vascular disease I73.9 Hyperlipidemia E78.5 CAD (coronary artery disease) I25.10
[2022-02-01] MEDS ORDERED: SENNOSIDES 8.8 MG/5 ML UDC PO PRN (20:39)
[2022-02-01] MEDS ORDERED: POLYETHYLENE (MIRALAX) 17 GM PACK PO PRN (20:39)
[2022-02-01] MEDS ORDERED: MoRPHine SULFATE 2 MG/ML CARP IV PRN (21:24)
[2022-02-01] MEDS ORDERED: ACETAMINOPHEN 325 MG TAB PO PRN ×2 (21:24)
[2022-02-01] MEDS ORDERED: ONDANSETRON INJ 2 MG/ML 2 ML VIAL IV PRN (21:24)
[2022-02-01] MEDS ORDERED: MoRPHine SULFATE 4 MG/ML 1 ML CARP\\VIAL IV PRN (21:24)
[2022-02-01] MEDS: KETOROLAC TROMETHAMINE 15 MG/ML VIAL IV PRN (23:25)
[2022-02-02] MEDS ORDERED: METOPROLOL TARTRATE 1 MG/ML VIAL IV STA ×2 (00:25→04:03)
[2022-02-02 04:55] LABS: Hematocrit (blood only) 42.6 % (42-52); Hemoglobin 14.6 g/dL (14.0-18.0); Mean Corpuscular Hemoglobin 34.5 pg (25-34); Mean Corpuscular Hgb Conc 34.3 g/dL (32-36); Mean Corpuscular Volume 100.7 fL (80-100); Mean Platelet Volume 9.5 fL (7.4-10.4); Platelet Count 225 K/uL (130-400); RDW Coefficient of Variation 13.7 % (11.5-14.5); RDW Standard Deviation 51.3 fL (36.4-46.3); Red Blood Count 4.23 M/uL (4.7-6.1); White Blood Count 13.76 K/uL (4.8-10.8)
[2022-02-02 05:16] LABS: BUN Creatinine Ratio 26.8 (10-20); Est GFR (African American) 107.8 ml/min; INR 1.3 (0.9-1.1); Potassium 4.6 mmol/L (3.5-5.1); Prothrombin Time 13.7 Seconds (9.0-12.0)
[2022-02-02 05:24] LABS: ALC (manual) 1.32 K/uL (1.2-3.4); ANC (manual) 10.76 K/uL (1.4-6.5); Basophils # (manual) 0.12 K/uL (0-0.2); Basophils % (manual) 0.9 %; Lymphocytes # (manual) 1.32 K/uL (1.2-3.4); Lymphocytes % (manual) 9.6 %; Monocytes # (manual) 1.55 K/uL (0.11-0.59); Monocytes % (manual) 11.3 %; Neutrophils # (manual) 10.76 K/uL (1.4-6.5); Neutrophils % (manual) 78.2 %
[2022-02-02] MEDS: KETOROLAC TROMETHAMINE 15 MG/ML VIAL IV PRN ×2 (06:24→17:41)
[2022-02-02] MEDS: CHOLECALCIFEROL 1,000 UNITS 25 MCG TAB PO SCH (08:17)
[2022-02-02] MEDS: ATORVASTATIN 20 MG TAB PO SCH (08:17)
[2022-02-02] MEDS: CEROVITE ADV FORMULA TAB PO SCH (08:17)
[2022-02-02] MEDS: ASCORBIC ACID 500 MG TAB PO SCH (08:17)
[2022-02-02] MEDS: DOCUSATE SODIUM 100 MG CAP PO SCH (08:18)
[2022-02-02] MEDS: FUROSEMIDE 20 MG TAB PO SCH (08:18)
[2022-02-02] MEDS: METOPROLOL SUCC 50MG EXT REL TAB PO SCH (08:18)
[2022-02-02] MEDS: PSYLLIUM 58.6% POWDER PACKET PO SCH (08:19)
--- NOTE | 2022-02-02 09:43 | Consultation ---
Date of Consultation February 02, 2022 Assessment & Plan (1) Closed dens fracture: Dr. Fraire has evaluated patient as well as images. Current treatment plan is nonsurgical. Recommended use of [place]ower J collar at all times. This should be quite strict. May loosen only for bathing and eating. He may be bed to chair today if tolerated may progress to ambulate ad nabil. No lifting greater than 5 pounds. May consider referral to acute rehab versus SNF upon discharge. If you have any further questions please do not hesitate to contact us. History of Present Illness Reason for Consultation: Cervical fracture Attending Physician: Red Beckman MD History of Present Illness Is a very pleasant 87-year-old gentleman we are asked to see in consultation regarding an acute cervical fracture. 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 He hit his head. Was transported to [facility] for evaluation and was found to have an acute cervical fracture. Currently denies bilateral upper extremity paresthesia, numbness or pain. Complains of posterior cervical pain only. Typically he ambulates with a walker at home. He lives with his . Allergies Allergy/AdvReac Type Severity Reaction Status Date / Time hall Allergy Severe FRESH Verified 02/01/22 09:53 CHERRIES CAUSE THROAT SWELLING/BREATHING DIFFICULTY Home Medications Medication Instructions Recorded Confirmed Type ascorbic acid (vitamin C) 500 mg 1,000 mg PO DAILY cap 07/09/18 02/01/22 History capsule biotin 1 mg capsule 1 mg PO DAILY 07/09/18 02/01/22 History calcium 1 tab PO DAILY tab 07/09/18 02/01/22 History jtd-yew-O0-Or-zfcath-Ew-boron 250 mg-40 mg-125 unit tablet (Citracal-D3 Plus Magnesium) cholecalciferol (vitamin D3) 100 4,000 units PO DAILY 07/09/18 02/01/22 History mcg (4,000 unit) capsule coenzyme Q10 200 mg capsule 200 mg PO DAILY 07/09/18 02/01/22 History lutein 6 mg capsule 6 mg PO DAILY 07/09/18 02/01/22 History niacin 250 mg tablet 250 mg PO DAILY 07/09/18 02/01/22 History selenium 200 mcg tablet 200 mcg PO DAILY 07/09/18 02/01/22 History vitamin B complex 1 cap PO DAILY 07/09/18 02/01/22 History vitamin E (dl, acetate) 180 mg 400 units PO DAILY 07/09/18 02/01/22 History (400 unit) capsule omega-3 fatty acids 1,000 mg 2,000 mg PO DAILY cap 07/29/19 02/01/22 History capsule clopidogrel 75 mg tablet (Plavix) 75 mg PO DAILY #90 tab 08/16/21 02/01/22 Rx atorvastatin 20 mg tablet (Lipitor) 20 mg PO DAILY #90 tab 11/28/21 02/01/22 Rx docusate sodium 100 mg capsule 200 mg PO DAILY cap 12/23/21 02/01/22 History (Colace) metoprolol succinate 50 mg 50 mg PO DAILY #90 tab 01/05/22 02/01/22 Rx tablet,extended release 24 hr furosemide 20 mg tablet (Lasix) 20 mg PO DAILY #30 tab 01/23/22 02/01/22 Rx chromium picolinate 200 mcg tablet 200 mcg PO DAILY 02/01/22 02/01/22 History warfarin 7.5 mg tablet 7.5 mg PO DAILY 02/01/22 02/01/22 History Patient History Medical History Aortic regurgitation Aortic stenosis Arteriosclerotic heart disease Cervical radiculopathy Hypertension Impaired fasting glucose Lumbar canal stenosis Nephrolithiasis Osteopenia Paroxysmal A-fib Paroxysmal ventricular tachycardia Peripheral vascular disease of lower extremity Polyneuropathy Prostate cancer Surgical History H/O arthroscopy of shoulder left H/O foot surgery H/O prostate biopsy H/O repair of rotator cuff History of carpal tunnel surgery History of lumbar laminectomy Hx of appendectomy Hx of tonsillectomy Status post Mohs surgery Family History Father Dementia Arterial vascular disease Myocardial infarction Denies family history of Ovarian cancer Prostate cancer Breast cancer Colorectal cancer Social History Smoking Status: Never smoker Second Hand Exposure: No; Hx Alcohol Use: Yes Alcohol type: wine Hx Substance Use: No Preferred Language: [place] Communication Ability: Effective Visual Impairment: Limited Hearing Ability: Normal 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 marital status: Current Living Situation: Spouse current occupational status: retired How many Children do You have: 1 Feels Safe at Home: Yes Childhood Exposure to Second-Hand Smoke: No caffeine: Yes (tea daily ) Dental Care, Regularly: Yes Physical Activity Frequency: Does not Exercise Seatbelt Use: always Sunscreen Use: No Assistive Devices: Walker Review of Systems Review of Systems: All systems reviewed & are unremarkable except as noted in HPI & below Physical Exam Physical Exam: Patient is lying in bed in no acute distress Alert and oriented x3 Mower J collar intact 5/5 bilateral biceps, triceps, deltoid Forehead laceration noted Results & Data ([facility]) Vital Signs (Past 12 Hours) Vital Signs Temp Pulse Resp BP Pulse Ox 02/02/22 08:02 36.7 C 110 H 20 151/103 H 91 02/02/22 03:44 36.8 C 103 H 20 161/107 H 90 02/01/22 23:11 36.6 C 115 H 20 166/123 H 90 Diagnostic Findings [place], [place] [phone] CT Scan Report Patient:ALEXEY MONTANO Admit Date:02/01/22 MR#:[id number] Address1:[address] Acct ID:[id number] Address2: Date:1935 [facility] Zip:[place] [address] Age:87 Location:ED Sex:M Room/Bed: Att Phy: Diagnosis:FALL, LAC TO HEAD Phyllis Phy:Red Mix MD Service Date:02/01/22 [facility] Phy: Interpreting Phy:Jason Ferreira MDAdmit Phy: Ordering Phy:Alireza Leach MD cc: ~ CT SCAN OF THE CERVICAL SPINE CLINICAL HISTORY: Trauma. Fall COMPARISON STUDY: CT of the cervical spine dated 12/15/2019. TECHNIQUE: CT scan of the cervical spine is performed from the skull base to the upper thoracic spine. Images are reviewed in the axial, sagittal, and coronal planes. IV contrast was not administered for this examination. A dose lowering technique was utilized adhering to the principles of ALARA. Are FINDINGS: Skeletal structures: The skeletal structures are osteopenic. Vertebral body height and alignment are maintained. There is a type II fracture through the base of the odontoid process with apex volar angulation. This is best seen on sagittal image #44. There is 6 mm of widening between the fragments anteriorly. Additionally, there are acute fractures of the anterior C1 (axial image #162 (and the posterior ring of C1 bilaterally (sagittal images #32 and #51). The left sided posterior ring fracture is comminuted with displaced fragment. The atlantoaxial articulation is preserved noting productive degenerative change. Anterior osteophytes are seen throughout. The spinous processes appear intact. There is fusion of the posterior elements of C2 on C3 bilaterally. There are subacute to chronic right posterior second through fifth rib fractures. There is moderate to advanced multilevel cervical spondylosis. Uncovertebral and facet arthropathy contribute to foraminal narrowing at most levels. Intervertebral discs: There is moderate to advanced disc space narrowing at C5- C6, C6-C7, and C7-T1. The remaining disc spaces appear maintained. Central canal: Posterior disc osteophyte complexes at C5-C6 and C6-C7 may contribute to acquired compromise of the central canal. Soft tissues: Prevertebral soft tissue edema is noted at C2. The paraspinous soft tissues are normal as imaged. Calcified sialoliths are noted in the right parotid gland. Atherosclerotic calcification is noted in the carotid bulbs. Calvarium: The visualized calvarium at the skull base appears intact. Brain parenchyma: Partially visualized brain parenchyma at the skull base is wit hin normal limits noting age-related involutional change. Sinuses and mastoids: The visualized paranasal sinuses are clear. There is a small left mastoid effusion. The right mastoid air cells are well pneumatized. Cerumen is noted in the external auditory canals. Lung apices: Clear as visualized. IMPRESSION: 1. Type II fracture through the base of the odontoid process with apex volar angulation as detailed above. 2. There are also fractures of the anterior and posterior rings of C1. 3. No additional acute fracture is seen involving the cervical spine. 4. Osteopenia and spondylotic change as above ACT 112: Negative or not required by law. Electronically signed by: Jason Ferreira M.D. 02/01/2022 3:42 PM Dictated:02/01/221530 Transcribed: 02/01/221530 (1) Closed dens fracture Encounter type: initial encounter Qualified Code(s): S12.100A - Unspecified displaced fracture of second cervical vertebra, initial encounter for closed fracture
--- NOTE | 2022-02-02 14:05 | Hospitalist Progress Note ---
Date of Service February 02, 2022 Assessment & Plan (1) Cervical spine fracture: Plan: -Type II fracture through base of the odontoid process with apex volar angulation as well as fracture of the anterior and posterior rings of C1. -Orthopedic surgery consulted on admission patient will be placed in [place] J collar. -Hold warfarin for 48 hours, okay to restart after 48 hours without bridge. Will resume 02/03 Remain in [place] J at all times, may loosen for bathing/eating May move from bed to chair today, if doing well progressed to ambulation ad nabil. and PT/OT eval's Recommended for consideration of rehab versus SNF on discharge, PT pending (2) Paroxysmal atrial fibrillation: Plan: -In A. fib now, suspected to be permanent by Dr. Felix in August. -Rate controlled on metoprolol 50 mg daily, continue this. -Hold warfarin for now, plan to restart as above (3) Peripheral vascular disease: Plan: -Hx of right fem-pop bypass in 2013. History of right popliteal stent. Follows with Dr. Jonas. -Patient underwent venous ablation on 01/10/2022 on the right. -With left lower leg venous stasis ulcer and open wound of right lower leg, on 01/27 topical Xylocaine was applied to both and they were debrided. -Wound dressing Aquacel and Coban light wraps, change Dbrgsl-Ltebuqlkc-Aenyoy. -Lasix 20 mg daily with compression wraps. Plan for compression stockings when wounds are healed. -Plavix 75 mg daily, hold for now due to C1-2 fracture. Resume 02/03 (4) CAD (coronary artery disease): Plan: -No chest pain or anginal equivalent today. -Presumed CAD due to distal anterior wall ischemia suggested on stress echo on 07/08/2013. -Continue metoprolol and atorvastatin; Plavix and warfarin as above (5) Aortic stenosis: Plan: -Noted on echo from 08/11, mild to moderate. -Seen by Dr. Felix in 09/11, asymptomatic, continue surveillance for now. (6) HTN (hypertension): Plan: -Continue with metoprolol 50 mg daily. (7) Hyperlipidemia: Plan: -Continue atorvastatin 20 mg daily. (8) Chronic constipation: Plan: -Ongoing issue since a fall in August 2021 resulting in sacral fractures without signs of cauda equina syndrome on MRI. Takes 3 pysllium fiber capsules and 200 daily which helps him. Typically moves bowels every other day. -Moderate fecal retention noted on imaging -Continue home regimen with Miralax prn, ambulate as above (9) Urinary retention: Plan: -Ongoing issue since a fall in August 2021 resulting in sacral fractures without signs of cauda equina syndrome on MRI. -Was seen by urology, previously with indwelling catheter however this has been removed and patient is wearing adult briefs and practicing timed voiding which has reduced incontinence. -Continue to monitor UO, will bladder scan now and order after voiding with orders to straight cath > 300 cc PVR. Plan: -Admit to med/tele. -SCDs for DVT ppx, holding anticoagulation for 48 hours d/t c spine fracture. -DNR/DNI. Admission and Anticipated Discharge Date Admission Date: February 01, 2022 Subjective Seen at bedside this morning. Reports his neck feels stiff in the collar, but otherwise feels "okay ". Denies numbness or tingling in the hands, shoulders, or legs. Feels the strength in his arms and legs is intact and symmetrical and has not worsened acutely. Denies chest pain, chest pressure, nausea, vomiting, diarrhea, constipation. Did talk to Ortho this morning and is aware that he will require strict use of the Fani Fiore collar but this can be loosened for bathing and eating. Recommended for progression from bed to chair today if tolerated and then progressed to ambulation ad nabil. with no lifting greater than 5 pounds and PT/OT pending, recommended for referral to acute rehab versus SNF on discharge by Ortho with PT pending. Patient agreeable to this, no questions or concerns at time of bedside assessment Review of Systems Review of Systems: All systems reviewed & are unremarkable except as noted in Subjective Physical Exam Physical Exam: General: A&Ox3. NAD. Cooperative. HEENT: MHA collar intact. Patient with forehead laceration with adherent scab without erythema/crepitus. Pulm: CTAB A&P. -wheezes, -rales, -rhonchi. Symmetrical chest rise. No increase in work of breathing. No respiratory distress. Cardiac: RRR, -mrg. Radial pulses intact and symmetrical. Abdominal: Nontender, nondistended, soft. BS present. 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 Sensation of soft touch intact in hands and ankles without deficit or asymmetry. Results & Data Results & Data ([facility]) Vital Signs (Past 12 Hours) Vital Signs Temp Pulse Resp BP Pulse Ox 02/02/22 11:13 37.1 C 81 20 153/89 H 95 02/02/22 08:02 36.7 C 110 H 20 151/103 H 91 02/02/22 03:44 36.8 C 103 H 20 161/107 H 90 PG Care Time/CCT Total # of Minutes Spent Total Time Spent with Patient: Total time spent is greater than 50% in coordination of care (as documented) at patient's floor/unit and/or counseling patient: Coding Level of Care Code 41071 Subseq Hosp Care Lvl 2 Diagnoses Cervical spine fracture S12.9XXA Paroxysmal atrial fibrillation I48.0 Peripheral vascular disease I73.9 CAD (coronary artery disease) I25.10 Aortic stenosis I35.0 HTN (hypertension) I10 Hyperlipidemia E78.5 Chronic constipation K59.09 Urinary retention R33.9
[2022-02-02] MEDS ORDERED: MELATONIN 3 MG TAB PO PRN (23:21)
[2022-02-03] MEDS: FUROSEMIDE 20 MG TAB PO SCH (08:44)
[2022-02-03] MEDS: DOCUSATE SODIUM 100 MG CAP PO SCH (08:45)
[2022-02-03] MEDS: CHOLECALCIFEROL 1,000 UNITS 25 MCG TAB PO SCH (08:45)
[2022-02-03] MEDS: METOPROLOL SUCC 50MG EXT REL TAB PO SCH (08:45)
[2022-02-03] MEDS: ATORVASTATIN 20 MG TAB PO SCH (08:48)
[2022-02-03] MEDS: ASCORBIC ACID 500 MG TAB PO SCH (08:48)
[2022-02-03] MEDS: CEROVITE ADV FORMULA TAB PO SCH (08:49)
[2022-02-03] MEDS: PSYLLIUM 58.6% POWDER PACKET PO SCH (08:49)
--- NOTE | 2022-02-03 12:44 | Hospitalist Progress Note ---
Date of Service February 03, 2022 Assessment & Plan (1) Cervical spine fracture: Plan: -Type II fracture through base of the odontoid process with apex volar angulation as well as fracture of the anterior and posterior rings of C1. -Orthopedic surgery consulted on admission patient will be placed in [place] J collar. -Hold warfarin for 48 hours, okay to restart after 48 hours without bridge. Will resume 02/03 Remain in [place] J at all times, may loosen for bathing/eating May move from bed to chair today, if doing well progressed to ambulation ad nabil. and PT/OT eval's Patient says he prefers home with home PT, doesnt want SNF or Rehab (2) Paroxysmal atrial fibrillation: Plan: -In A. fib now, suspected to be permanent by Dr. Felix in August. -Rate controlled on metoprolol 50 mg daily, continue this. -Warfarin has been resumed (3) Peripheral vascular disease: Plan: -Hx of right fem-pop bypass in 2013. History of right popliteal stent. Follows with Dr. Jonas. -Patient underwent venous ablation on 01/10/2022 on the right. -With left lower leg venous stasis ulcer and open wound of right lower leg, on 01/27 topical Xylocaine was applied to both and they were debrided. -Wound dressing Aquacel and Coban light wraps, change Jjbiwf-Kjfwnmijo-Dqhmvd. -Lasix 20 mg daily with compression wraps. Plan for compression stockings when wounds are healed. -Plavix 75 mg daily, (4) CAD (coronary artery disease): Plan: -No chest pain or anginal equivalent today. -Presumed CAD due to distal anterior wall ischemia suggested on stress echo on 07/08/2013. -Continue metoprolol and atorvastatin; Plavix and warfarin as above (5) Aortic stenosis: Plan: -Noted on echo from 08/11, mild to moderate. -Seen by Dr. Felix in 09/11, asymptomatic, continue surveillance for now. (6) HTN (hypertension): Plan: -Continue with metoprolol 50 mg daily. (7) Hyperlipidemia: Plan: -Continue atorvastatin 20 mg daily. (8) Chronic constipation: Plan: -Ongoing issue since a fall in August 2021 resulting in sacral fractures without signs of cauda equina syndrome on MRI. Takes 3 pysllium fiber capsules and 200 daily which helps him. Typically moves bowels every other day. -Moderate fecal retention noted on imaging -Continue home regimen with Miralax prn, ambulate as above (9) Urinary retention: Plan: -Ongoing issue since a fall in August 2021 resulting in sacral fractures without signs of cauda equina syndrome on MRI. -Was seen by urology, previously with indwelling catheter however this has been removed and patient is wearing adult briefs and practicing timed voiding which has reduced incontinence. -Continue to monitor UO, will bladder scan now and order after voiding with orders to straight cath > 300 cc PVR. Plan: -Discharge when home PT and Home health arranged Admission and Anticipated Discharge Date Admission Date: February 01, 2022 Subjective patient seen and examined, participating in PT Review of Systems Review of Systems: All systems reviewed are negative, apart from the ones contained in the history. Physical Exam Physical Exam: The patient is awake, alert and oriented 3, well developed and well nourished, normocephalic and atraumatic, lying in bed and in no acute distress. HEENT--PERRL, EOMI, mucous membranes and oropharynx mildly dry Neck--[place] neck collar Heart--normal S1 and S2. No murmurs, rubs or gallops. Lungs--clear bilaterally, no respiratory distress, no accessory muscle use. Abdomen--normal bowel sounds and soft. Mild epigastric and left sided abdominal pain Extremities--no cyanosis or clubbing. No edema. Dermatologic--normal skin turgor, normal color, no abnormal lymph nodes, no rash. Neurologic--cranial nerves II through XII grossly intact. Rheumatologic--normal range of motion. Psychiatric--normal affect. Results & Data Results & Data ([facility]) Vital Signs (Past 12 Hours) Vital Signs Temp Pulse Resp BP Pulse Ox 02/03/22 11:18 98.1 F 108 H 18 131/81 93 02/03/22 07:44 99.0 F 114 H 18 165/98 H 92 02/03/22 03:33 98.6 F 104 H 18 152/98 H 92 PG Care Time/CCT Total # of Minutes Spent Total Time Spent with Patient: Total time spent is greater than 50% in coordination of care (as documented) at patient's floor/unit and/or counseling patient: Coding Level of Care Code 70586 Subseq Hosp Care Lvl 2 Diagnoses Cervical spine fracture S12.9XXA Paroxysmal atrial fibrillation I48.0 Peripheral vascular disease I73.9 CAD (coronary artery disease) I25.10 Aortic stenosis I35.0 HTN (hypertension) I10 Hyperlipidemia E78.5 Chronic constipation K59.09 Urinary retention R33.9 Time Spent (min) 35
[2022-02-03] MEDS ORDERED: WARFARIN SOD 7.5 MG TAB PO SCH (16:00)
[2022-02-04] MEDS: FUROSEMIDE 20 MG TAB PO SCH (08:34)
[2022-02-04] MEDS: ATORVASTATIN 20 MG TAB PO SCH (08:34)
[2022-02-04] MEDS: METOPROLOL SUCC 50MG EXT REL TAB PO SCH (08:34)
[2022-02-04] MEDS: CEROVITE ADV FORMULA TAB PO SCH (08:34)
[2022-02-04] MEDS: ASCORBIC ACID 500 MG TAB PO SCH (08:34)
[2022-02-04] MEDS: DOCUSATE SODIUM 100 MG CAP PO SCH (08:35)
[2022-02-04] MEDS: PSYLLIUM 58.6% POWDER PACKET PO SCH (08:35)
[2022-02-04] MEDS: CHOLECALCIFEROL 1,000 UNITS 25 MCG TAB PO SCH (08:35)
[2022-02-04] MEDS ORDERED: CLOPIDOGREL BISULFATE 75 MG TAB PO SCH (09:00)
--- NOTE | 2022-02-04 11:18 | Discharge Summary ---
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 Patient was standing while putting his shirt on and fell, hitting his head on impact. EMS was called and he was transported to our emergency room for further evaluation. He denies LOC, loss of vision, chest pain, palpitations, SOB, numbness/tingling, or weakness but does have pain in his head and neck, 5/10 at rest and 8/10 with any movement of neck. In ED, is hypertensive 165/120, heart rate 106, otherwise vital signs within normal limits and stable. Labs significant for PT 22.1, INR 2.2, glucose 129. Otherwise unremarkable. CT spine showed type II fracture through base of the odontoid process with apex volar angulation as well as fracture of the anterior and posterior rings of C1. Head CT negative for hemorrhage, mass-effect, acute territorial ischemia. CT A/P showed no solid organ injury, significant for moderate constipation and possible chronic bladder outlet obstruction. Infrarenal abdominal aortic aneurysm 3.3 cm, noted on previous imaging from September as well. CXR showed cardiomegaly with small right pleural effusion. Patient received Kcentra and vitamin K in ED. Orthopedic surgery was consulted, as well as hospitalist service for further evaluation and admission. Principal Diagnosis C1 fracture Discharge Exam The patient is awake, alert and oriented 3, well developed and well nourished, normocephalic and atraumatic, lying in bed and in no acute distress. HEENT--PERRL, EOMI, mucous membranes and oropharynx mildly dry Neck--[place] neck collar Heart--normal S1 and S2. No murmurs, rubs or gallops. Lungs--clear bilaterally, no respiratory distress, no accessory muscle use. Abdomen--normal bowel sounds and soft. Mild epigastric and left sided abdominal pain Extremities--no cyanosis or clubbing. No edema. Dermatologic--normal skin turgor, normal color, no abnormal lymph nodes, no rash. Neurologic--cranial nerves II through XII grossly intact. Rheumatologic--normal range of motion. Psychiatric--normal affect. Discharge Data Allergies Allergy/AdvReac Type Severity Reaction Status Date / Time hall Allergy Severe FRESH Verified 02/01/22 09:53 CHERRIES CAUSE THROAT SWELLING/BREATHING DIFFICULTY Consultations 02/01/22 17:47 Consult Orthopedic Surgery Stat 02/01/22 17:48 ED Decision to Admit Stat Ordered Studies 02/01/22 14:55 CT cervical spine wo con Stat CT head/brain wo con Stat 02/01/22 15:46 CT abd pelvis IV con only Stat Hospital Course (1) Cervical spine fracture: -Type II fracture through base of the odontoid process with apex volar angulation as well as fracture of the anterior and posterior rings of C1. -Orthopedic surgery consulted on admission patient will be placed in [place] J collar. -Hold warfarin for 48 hours, okay to restart after 48 hours without bridge. Will resume 02/03 Remain in [place] J at all times, may loosen for bathing/eating May move from bed to chair today, if doing well progressed to ambulation ad nabil . and PT/OT eval's Patient says he prefers home with home PT, doesnt want SNF or Rehab (2) Paroxysmal atrial fibrillation: -In A. fib now, suspected to be permanent by Dr. Felix in August. -Rate controlled on metoprolol 50 mg daily, continue this. -Warfarin has been resumed (3) Peripheral vascular disease: -Hx of right fem-pop bypass in 2013. History of right popliteal stent. Follows with Dr. Jonas. -Patient underwent venous ablation on 01/10/2022 on the right. -With left lower leg venous stasis ulcer and open wound of right lower leg, on 01/27 topical Xylocaine was applied to both and they were debrided. -Wound dressing Aquacel and Coban light wraps, change Kdhdni-Kcrqhlolv-Rvvzpi. -Lasix 20 mg daily with compression wraps. Plan for compression stockings when wounds are healed. -Plavix 75 mg daily, (4) CAD (coronary artery disease): -No chest pain or anginal equivalent today. -Presumed CAD due to distal anterior wall ischemia suggested on stress echo on 07/08/2013. -Continue metoprolol and atorvastatin; Plavix and warfarin as above (5) Aortic stenosis: -Noted on echo from 08/11, mild to moderate. -Seen by Dr. Felix in 09/11, asymptomatic, continue surveillance for now. (6) HTN (hypertension): -Continue with metoprolol 50 mg daily. (7) Hyperlipidemia: -Continue atorvastatin 20 mg daily. (8) Chronic constipation: -Ongoing issue since a fall in August 2021 resulting in sacral fractures without signs of cauda equina syndrome on MRI. Takes 3 pysllium fiber capsules and 200 daily which helps him. Typically moves bowels every other day. -Moderate fecal retention noted on imaging -Continue home regimen with Miralax prn, ambulate as above (9) Urinary retention: -Ongoing issue since a fall in August 2021 resulting in sacral fractures without signs of cauda equina syndrome on MRI. -Was seen by urology, previously with indwelling catheter however this has been removed and patient is wearing adult briefs and practicing timed voiding which has reduced incontinence. -Discharge with foly and follow up with urology outpatient -Discharge when home PT and Home health arranged Total Time Total Time Spent Total Time Spent (In Minutes): 35 Discharge Plan Discharge Items Patient Disposition: Home - Home Health Services Reason For Visit: C1-2 FRACTURE Discharge Diagnosis: C1 fracture Activity: Resume your previous activity Non-emergency contact: Primary Care Provider and Urologist Call non-emergency contact if: you have any medication questions Follow-up/Referrals: Red Mix MD [Primary Care Provider] - Diet: Regular Addtl Attending Provider Instructions: please keep the [place] neck brace all the time. make appointment to follow up wit a Urologist regarding your leyva catheter Pending Studies at Discharge: No Stand-Alone Forms: My [employer], Smoking Cessation Medications and DC Order Prescriptions: Continued selenium 200 mcg tablet 200 mcg PO DAILY RF: 0 lutein 6 mg capsule 6 mg PO DAILY RF: 0 niacin 250 mg tablet 250 mg PO DAILY RF: 0 vitamin B complex capsule 1 cap PO DAILY RF: 0 coenzyme Q10 200 mg capsule 200 mg PO DAILY RF: 0 vitamin E (dl, acetate) 400 unit capsule 400 units PO DAILY RF: 0 percy ukt-rda-[id number]-Ds-[id number]-emg-bor [Citracal-D3 Plus Magnesium] 250-40-125 mg-mg-unit tablet 1 tab PO DAILY RF: 0 cholecalciferol (vitamin D3) 4,000 unit capsule 4,000 units PO DAILY RF: 0 biotin 1 mg capsule 1 mg PO DAILY RF: 0 ascorbic acid (vitamin C) 500 mg capsule 1,000 mg PO DAILY RF: 0 omega-3 fatty acids 1,000 mg capsule 2,000 mg PO DAILY RF: 0 docusate sodium [Colace] 100 mg capsule 200 mg PO DAILY RF: 0 clopidogrel [Plavix] 75 mg tablet 75 mg PO DAILY Qty: 90 RF: 3 atorvastatin [Lipitor] 20 mg tablet 20 mg PO DAILY Qty: 90 RF: 3 metoprolol succinate 50 mg tablet extended release 24 hr 50 mg PO DAILY Qty: 90 RF: 3 furosemide [Lasix] 20 mg tablet 20 mg PO DAILY Qty: 30 RF: 5 chromium picolinate 200 mcg Tablet 200 mcg PO DAILY RF: 0 warfarin 7.5 mg tablet 7.5 mg PO DAILY RF: 0 Discharge Orders: Discharge Order (Routine); Ordered 02/04/22 Ordered By: Len Murillo Admission Data Admit Date/Time: 02/01/22 18:48 Attending Provider: Len Murillo Admit Provider: Red Beckman Primary Care Provider: Red Mix Other Providers: Suresh Fraire ; Red Beckman ; [facility],Home Healthcare Other Interventions: Discharge Summary Assessment (RN) Last Done: 02/04/22 10:51 Coding Level of Care Code D/C DAY MANAGEMENT >30 MINS Diagnoses Cervical spine fracture S12.9XXA Paroxysmal atrial fibrillation I48.0 Peripheral vascular disease I73.9 CAD (coronary artery disease) I25.10 Aortic stenosis I35.0 HTN (hypertension) I10 Hyperlipidemia E78.5 Chronic constipation K59.09 Urinary retention R33.9 Time Spent (min) 35
== END 2022-02-04 12:02 | disposition home health service (06) | DRG 552 ==
LOC: ED 14:46 → SUATTDRO 18:48 → 2N 18:48

== ENCOUNTER 2022-02-20 13:53 | Observation (INO) ==
[2022-02-20 14:41] LABS: Basophils # (auto) 0.04 K/uL (0-0.2); Basophils % (auto) 0.3 %; Eosinophils # (auto) 0.01 K/uL (0-0.5); Eosinophils % (auto) 0.1 %; Hematocrit (blood only) 32.3 % (42-52); Hemoglobin 10.7 g/dL (14.0-18.0); Immature Granulocytes # (auto) 0.04 K/uL (0.00-0.02); Immature Granulocytes % (auto) 0.3 %; Lymphocytes # (auto) 1.34 K/uL (1.2-3.4); Lymphocytes % (auto) 9.1 %; Mean Corpuscular Hemoglobin 32.6 pg (25-34); Mean Corpuscular Hgb Conc 33.1 g/dL (32-36); Mean Corpuscular Volume 98.5 fL (80-100); Mean Platelet Volume 9.3 fL (7.4-10.4); Monocytes # (auto) 1.12 K/uL (0.11-0.59); Monocytes % (auto) 7.6 %; Neutrophils # (auto) 12.21 K/uL (1.4-6.5); Neutrophils % (auto) 82.6 %; Platelet Count 298 K/uL (130-400); RDW Coefficient of Variation 13.4 % (11.5-14.5); RDW Standard Deviation 48.2 fL (36.4-46.3); Red Blood Count 3.28 M/uL (4.7-6.1); White Blood Count 14.76 K/uL (4.8-10.8)
[2022-02-20 15:32] LABS: Alanine Aminotransferase 32 U/L (7-52); Albumin Globulin Ratio 0.8 (0.9-2); Albumin Level 2.8 gm/dl (3.4-5.0); Alkaline Phosphatase 60 U/L (34-104); Anion Gap 5 (3-11); Aspartate Aminotransferase 26 U/L (13-39); Bilirubin,Total 0.4 mg/dl (0.2-1.0); Blood Urea Nitrogen 34 mg/dl (6-23); Calcium 8.6 mg/dl (8.5-10.1); Carbon Dioxide 29 mmol/L (21-32); Chloride 98 mmol/L (98-107); Est GFR (African American) 99.5 ml/min; Est GFR (Non-African American) 85.9 ml/min; Globulin 3.5 gm/dl (2.5-4.0); Glucose 177 mg/dl (70-99(Fasting)); Potassium 4.5 mmol/L (3.5-5.1); Sodium 132 mmol/L (136-145); Total Protein 6.3 gm/dl (6.0-8.3)
[2022-02-20] MEDS ORDERED: SODIUM CHLORIDE 0.9% 250 ML IV PRN (16:31)
[2022-02-20] MEDS ORDERED: SODIUM CHLORIDE 0.9% 500 ML IV ONE (16:31)
[2022-02-20] MEDS ORDERED: PANTOprazole 80 MG in DEXTROSE 5% 100 ML IV STA (16:31)
[2022-02-20] MEDS ORDERED: PHYTONADIONE 5 MG in DEXTROSE 5% 50 ML IV ONE (16:31)
--- NOTE | 2022-02-20 16:37 | Emergency Department Note ---
Impression & Plan Acute gastrointestinal bleeding, Anemia due to acute blood loss, Acute dehydration ED Provider Note Name: ALEXEY MONTANO Age: 87 Sex: M Arrives Via: Walk-In Informant: Patient, son ED Provider: Coleman Rangel MD Chief Complaint: Weakness Impression: As per impressions above Medical Decision Making: Pleasant 87-year-old gentleman who has had a tough last week and a half after falling and sustaining a cervical fracture and having to wear a cervical collar. Patient is on Coumadin and his INR this morning was reportedly 2.1. Patient arrives as he is weak, hypotensive, tachycardic and there was concern as he may be having acute dehydration from not eating well recently. On evaluation patient is dehydrated appearing however he is quite pale and a rectal exam reveals black/bloody stool which is grossly heme positive. As he is moderately tachycardic he was given some small bolus of IV fluids with improvement in his heart rate. His initial hemoglobin is 10 which is significantly dropped from his hemoglobin of 14 just few days ago. Given the acute GI bleed in the setting of an INR this morning he was given 5 mg IV vitamin K as well as IV Protonix. A type and cross for 2 units was sent given the amount of blood noted but will hold off on transfusing for now. His other blood work is not overly concerning at this time and he is awake alert oriented and interacting normally. He does not have any abdominal pain or tenderness to palpation thus I do not see clear indication for doing CT abdomen pelvis at this time. Repeat hemoglobin reveals a hemoglobin of 9 and hospitalist were consulted for further management and evaluation. Prior Medical Record and Triage/Nursing Notes reviewed by Me Additional history obtained from chart and son Differentials:Infection, dehydration, metabolic abnormality, hypo/hyperglycemia, electrolyte disturbance, anemia, hypoxia, cardiac sources, intracerebral event, toxicologic, neurologic, as well as other pathologies. Vital Signs: reviewed and remarkable for tachycardia Interventions: Protonix IV, vitamin K IV, normal saline bolus IV Labs:Reviewed and remarkable for anemia elevated BUN EKG:Per My Interpretation: Indication weakness: A. fib RVR 126bpm, qtc 466. No Ectopy. No Ischemia. Compared to EKG July 22, 2014, no significant changes. Cardiac/Tele Monitoring: Cardiac Monitoring: An Order was placed for continuous cardiac monitoring. The monitor shows a rate of 125 with a atrial fibrillation RVR rhythm. Consults:Dr. Pugh [place] hospitalist Plan: Disposition:Hospitalization. Condition: Good History of Present Illness:87-year-old male arrives for evaluation of dehydration. Patient was hospitalized 2 weeks ago following a fall head injury and cervical fracture. He was discharged after 3 days. He has been at home with the help of his son and home health. Last few days he had no bowel movement and was not feeling much appetite. This morning had a large bowel movement with blood and black stool. He was evaluated by home health and advised to come to the ER for concern for dehydration. Patient notes that he was hypotensive at home. He notes he is feeling slightly lightheaded but otherwise feels fine. He denies any abdominal pain, nausea, vomiting, palpitation, neck pain, weakness, syncope, chest pain, difficulty breathing, bleeding/bruising other than black stools, urinary symptoms or other symptoms. He did actually been quite constipated up until this morning. He has not been using any NSAIDs but rather just Tylenol as needed for his neck pain. He has been using his cervical collar due to the cervical fracture. He denies any current headache. He did have an elevated INR a few days ago at 4 and thus held it for the last 2 days and the repeat was 2.1 today. Patient denies any previous need for transfusions. He does have known coronary artery disease with A. fib but no history of cardiac surgery nor valve replacement. He does have a history of DVTs years ago for which she is also on his anticoagulant Coumadin. ROS: See above HPI for pertinent positives & negatives. A total of 10 systems reviewed and were otherwise negative. Past Medical History:See Below Past Surgical History:See Below Family History:See Below Social History:See Below Home Medications:See Below Allergies:No known drug allergies Vitals:Blood Pressure: 116/62, Pulse 130, RR 18, T 36.5C, O2 96% on RA Physical Exam: GENERAL: Patient is chronically unwell and pale appearing and in minimal distress. EYES: No scleral icterus, unremarkable pupils. ENT: Mucous membranes dry, no nasal congestion. NECK: Patient remains in cervical collar RESPIRATORY: No dyspnea. Clear to auscultation and equal bilaterally. No wheeze, no rhonchi. CARDIOVASCULAR: Tachycardia irregular.No murmurs, rubs, gallops appreciated. GASTROINTESTINAL: Abdomen soft, non-tender, no peritonitis.Bowel sounds positive.No masses appreciated. RECTAL: Normal perirectal area without tenderness. He has a moderate amount of stool in the rectal vault. There are stool is black/bloody and is heme posi tive. BACK: No midline tenderness, no CVA tenderness EXTREMITIES: Normal motion all extremities, no cyanosis, bilateral R>L edema (states chronic and mildly improved recently) NEUROLOGIC: Alert and oriented, no acute motor or sensory deficits, no focal weakness, cranial nerves grossly intact. SKIN: No rash, no jaundice, no diaphoresis. PSYCH: Appropriate GCS: 15 ED Course: Times/Reassessments: Patient stable with improving heart rate and in no significant distress agreeable to hospitalization Coleman Rangel MD Past Med/Surg History Medical History Aortic regurgitation Aortic stenosis Arteriosclerotic heart disease Cervical radiculopathy Hypertension Impaired fasting glucose Lumbar canal stenosis Nephrolithiasis Osteopenia Paroxysmal A-fib Paroxysmal ventricular tachycardia Peripheral vascular disease of lower extremity Polyneuropathy Prostate cancer Surgical History H/O arthroscopy of shoulder left H/O foot surgery H/O prostate biopsy H/O repair of rotator cuff History of carpal tunnel surgery History of lumbar laminectomy Hx of appendectomy Hx of tonsillectomy Status post Mohs surgery Family History Father Dementia Arterial vascular disease Myocardial infarction Denies family history of Ovarian cancer Prostate cancer Breast cancer Colorectal cancer Social History Smoking Status: Never smoker Second Hand Exposure: No; Hx Alcohol Use: Yes Alcohol type: wine Hx Substance Use: No Preferred Language: [place] Communication Ability: Effective Visual Impairment: Limited Hearing Ability: Normal 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: No marital status: Current Living Situation: Spouse current occupational status: retired How many Children do You have: 1 Feels Safe at Home: Yes Safety Concerns: Feels Safe At This Time Childhood Exposure to Second-Hand Smoke: No caffeine: Yes (tea daily ) Dental Care, Regularly: Yes Physical Activity Frequency: Does not Exercise Seatbelt Use: always Sunscreen Use: No Assistive Devices: Glasses Allergies Allergies Allergy/AdvReac Type Severity Reaction Status Date / Time hall Allergy Severe FRESH Verified 02/20/22 17:48 CHERRIES CAUSE THROAT SWELLING/BREATHING DIFFICULTY Home Meds Home Medications Medication Instructions Recorded Confirmed ascorbic acid (vitamin C) 500 mg 1,000 mg PO DAILY cap 07/09/18 02/20/22 capsule biotin 1 mg capsule 1 mg PO DAILY 07/09/18 02/20/22 calcium 1 tab PO DAILY tab 07/09/18 02/20/22 tmy-bip-[id number]-Ha-[id number]-Ic-boron 250 mg-40 mg-125 unit tablet (Citracal-D3 Plus Magnesium) coenzyme Q10 200 mg capsule 200 mg PO DAILY 07/09/18 02/20/22 lutein 6 mg capsule 6 mg PO DAILY 07/09/18 02/20/22 niacin 250 mg tablet 250 mg PO DAILY 07/09/18 02/20/22 selenium 200 mcg tablet 200 mcg PO DAILY 07/09/18 02/20/22 vitamin B complex 1 cap PO DAILY 07/09/18 02/20/22 vitamin E (dl, acetate) 180 mg 400 units PO DAILY 07/09/18 02/20/22 (400 unit) capsule omega-3 fatty acids 1,000 mg 2,000 mg PO DAILY cap 07/29/19 02/20/22 capsule docusate sodium 100 mg capsule 200 mg PO DAILY cap 12/23/21 02/20/22 (Colace) chromium picolinate 200 mcg tablet 200 mcg PO DAILY 02/01/22 02/20/22 cholecalciferol (vitamin D3) 100 5,000 unit PO DAILY cap 02/08/22 02/20/22 mcg (4,000 unit) capsule warfarin 7.5 mg tablet See Rx Instructions PO DAILY 02/17/22 02/20/22 Vitamin K Tab 1 tab PO DAILY 02/20/22 02/20/22 Previous Rx's Medication Instructions Recorded clopidogrel 75 mg tablet (Plavix) 75 mg PO DAILY #90 tab 08/16/21 atorvastatin 20 mg tablet (Lipitor) 20 mg PO DAILY #90 tab 11/28/21 metoprolol succinate 50 mg 50 mg PO DAILY #90 tab 01/05/22 tablet,extended release 24 hr furosemide 20 mg tablet (Lasix) 20 mg PO DAILY #30 tab 01/23/22 Lift Chair #1 ea 02/07/22 walker #1 ea 02/07/22 Bedside Commode #1 ea 02/10/22 Results & Data (ED) Vital Signs Vital Signs - 24 hr 02/20/22 14:00 02/20/22 17:05 02/20/22 18:30 Temperature 36.5 C Temperature Source Oral Pulse Rate 130 H Pulse Rate [Apical] 114 H 102 H Respiratory Rate 18 15 20 Blood Pressure 116/62 Blood Pressure [Right Arm] 114/75 119/76 Blood Pressure Mean 80 Blood Pressure Mean [Right Arm] 88 90 Pulse Oximetry 96 99 98 Oxygen Delivery Method Room Air Room Air Room Air Sepsis Recent Fever Within 48 Hours No Sepsis New/Unexplained Change in Mental Status No Sepsis Action Taken by Nursing No Action Required 02/20/22 18:45 02/20/22 19:00 02/20/22 19:15 Temperature Temperature Source Pulse Rate 116 H Pulse Rate [Apical] 130 H 123 H Respiratory Rate 20 14 23 Blood Pressure 118/78 Blood Pressure [Right Arm] 100/78 106/73 Blood Pressure Mean 91 Blood Pressure Mean [Right Arm] 85 84 Pulse Oximetry 99 99 97 Oxygen Delivery Method Room Air Room Air Sepsis Recent Fever Within 48 Hours Sepsis New/Unexplained Change in Mental Status Sepsis Action Taken by Nursing 02/20/22 19:30 02/20/22 19:45 02/20/22 20:00 Temperature Temperature Source Pulse Rate 122 H 128 H 116 H Pulse Rate [Apical] Respiratory Rate 23 20 18 Blood Pressure 106/60 102/67 110/73 Blood Pressure [Right Arm] Blood Pressure Mean 75 78 85 Blood Pressure Mean [Right Arm] Pulse Oximetry 100 97 97 Oxygen Delivery Method Sepsis Recent Fever Within 48 Hours Sepsis New/Unexplained Change in Mental Status Sepsis Action Taken by Nursing 02/20/22 20:15 02/20/22 20:30 02/20/22 20:45 Temperature Temperature Source Pulse Rate 120 H 127 H 108 H Pulse Rate [Apical] Respiratory Rate 17 17 18 Blood Pressure 111/67 99/78 L 97/70 L Blood Pressure [Right Arm] Blood Pressure Mean 81 85 79 Blood Pressure Mean [Right Arm] Pulse Oximetry 95 97 96 Oxygen Delivery Method Sepsis Recent Fever Within 48 Hours Sepsis New/Unexplained Change in Mental Status Sepsis Action Taken by Nursing 02/20/22 21:00 Temperature Temperature Source Pulse Rate 126 H Pulse Rate [Apical] Respiratory Rate 19 Blood Pressure 107/72 Blood Pressure [Right Arm] Blood Pressure Mean 83 Blood Pressure Mean [Right Arm] Pulse Oximetry 96 Oxygen Delivery Method Sepsis Recent Fever Within 48 Hours Sepsis New/Unexplained Change in Mental Status Sepsis Action Taken by Nursing Laboratory Data Result diagrams: 02/21/22 12:17 02/21/22 06:31 Lab Results 02/20/22 02/20/22 02/20/22 Range/Units 14:28 14:28 14:28 WBC 14.76 H (4.8-10.8) K/uL RBC 3.28 L (4.7-6.1) M/uL Hgb 10.7 L (14.0-18.0) g/dL Hct 32.3 L (42-52) % MCV 98.5 (80-100) fL MCH 32.6 (25-34) pg MCHC 33.1 (32-36) g/dL RDW Std Deviation 48.2 H (36.4-46.3) fL RDW Coeff of Miranda 13.4 (11.5-14.5) % Plt Count 298 (130-400) K/uL MPV 9.3 (7.4-10.4) fL Immature Gran % (Auto) 0.3 % Neut % (Auto) 82.6 % Lymph % (Auto) 9.1 % [place] % (Auto) 7.6 % Eos % (Auto) 0.1 % Baso % (Auto) 0.3 % Neut # (Auto) 12.21 H (1.4-6.5) K/uL Lymph # (Auto) 1.34 (1.2-3.4) K/uL [place] # (Auto) 1.12 H (0.11-0.59) K/uL Eos # (Auto) 0.01 (0-0.5) K/uL Baso # (Auto) 0.04 (0-0.2) K/uL Immature Gran # (Auto) 0.04 H (0.00-0.02) K/uL PT 20.0 H (9.0-12.0) Seconds INR 1.9 H (0.9-1.1) APTT 30.2 (21.0-31.0) Seconds PTT Ratio 1.1 Sodium 132 L (136-145) mmol/L Potassium 4.5 (3.5-5.1) mmol/L Chloride 98 (98-107) mmol/L Carbon Dioxide 29 (21-32) mmol/L Anion Gap 5 (3-11) BUN 34 H (6-23) mg/dl Creatinine 0.68 (0.6-1.4) mg/dl Est Cr Clr Drug Dosing Not Reportable Est GFR ( Amer) 99.5 ml/min Est GFR (Non-Af Amer) 85.9 ml/min BUN/Creatinine Ratio 50.0 H (10-20) Glucose 177 H (70-99(Fasting)) mg/dl Calcium 8.6 (8.5-10.1) mg/dl Total Bilirubin 0.4 (0.2-1.0) mg/dl AST 26 (13-39) U/L ALT 32 (7-52) U/L Alkaline Phosphatase 60 (34-104) U/L Total Protein 6.3 (6.0-8.3) gm/dl Albumin 2.8 L (3.4-5.0) gm/dl Globulin 3.5 (2.5-4.0) gm/dl Albumin/Globulin Ratio 0.8 L (0.9-2) SARS-CoV-2, RNA, NAAT (NEGATIVE) Blood Type Antibody Screen Crossmatch 02/20/22 02/20/22 02/20/22 Range/Units 16:39 17:00 18:21 WBC (4.8-10.8) K/uL RBC (4.7-6.1) M/uL Hgb 9.8 L (14.0-18.0) g/dL Hct (42-52) % MCV (80-100) fL MCH (25-34) pg MCHC (32-36) g/dL RDW Std Deviation (36.4-46.3) fL RDW Coeff of Miranda (11.5-14.5) % Plt Count (130-400) K/uL MPV (7.4-10.4) fL Immature Gran % (Auto) % Neut % (Auto) % Lymph % (Auto) % [place] % (Auto) % Eos % (Auto) % Baso % (Auto) % Neut # (Auto) (1.4-6.5) K/uL Lymph # (Auto) (1.2-3.4) K/uL [place] # (Auto) (0.11-0.59) K/uL Eos # (Auto) (0-0.5) K/uL Baso # (Auto) (0-0.2) K/uL Immature Gran # (Auto) (0.00-0.02) K/uL PT (9.0-12.0) Seconds INR (0.9-1.1) APTT (21.0-31.0) Seconds PTT Ratio Sodium (136-145) mmol/L Potassium (3.5-5.1) mmol/L Chloride (98-107) mmol/L Carbon Dioxide (21-32) mmol/L Anion Gap (3-11) BUN (6-23) mg/dl Creatinine (0.6-1.4) mg/dl Est Cr Clr Drug Dosing Est GFR ( Amer) ml/min Est GFR (Non-Af Amer) ml/min BUN/Creatinine Ratio (10-20) Glucose (70-99(Fasting)) mg/dl Calcium (8.5-10.1) mg/dl Total Bilirubin (0.2-1.0) mg/dl AST (13-39) U/L ALT (7-52) U/L Alkaline Phosphatase (34-104) U/L Total Protein (6.0-8.3) gm/dl Albumin (3.4-5.0) gm/dl Globulin (2.5-4.0) gm/dl Albumin/Globulin Ratio (0.9-2) SARS-CoV-2, RNA, NAAT NEGATIVE (NEGATIVE) Blood Type A Positive Antibody Screen NEGATIVE Crossmatch See Detail Administered Medications Pantoprazole Sodium 40 mg/ (Syringe) 10 mls @ 5 mls/min IV BID SOREN Stop: 03/23/22 08:59 Last Admin: 02/21/22 10:11 Dose: 5 mls/min Documented by: [id number] Metoprolol Succinate (Metoprolol Succ 50mg Ext Rel Tab) 50 mg PO QAM SOREN Stop: 03/23/22 08:59 Last Admin: 02/21/22 10:51 Dose: 50 mg Documented by: [id number] Discontinued Medications Sodium Chloride (Nss) 500 mls @ 999 mls/hr IV .Q31M ONE Stop: 02/20/22 17:01 Last Infusion: 02/20/22 17:30 Dose: 0 mls/hr Documented by: [id number] Admin: 02/20/22 16:59 Dose: 999 mls/hr Documented by: [id number] Phytonadione 5 mg/ Dextrose 50.5 mls @ 101 mls/hr IV ONE ONE Stop: 02/20/22 17:00 Last Infusion: 02/20/22 19:00 Dose: 0 mls/hr Documented by: [id number] Admin: 02/20/22 18:30 Dose: 101 mls/hr Documented by: [id number] Pantoprazole Sodium 80 mg/ (Dextrose) 100 mls @ 400 mls/hr IV ONE STA Stop: 02/20/22 16:45 Last Infusion: 02/20/22 18:30 Dose: 0 mls/hr Documented by: [id number] Admin: 02/20/22 17:45 Dose: 400 mls/hr Documented by: [id number] Lactated Ringer's (Lr) 1,000 mls @ 125 mls/hr IV .Q8H SOREN Stop: 02/21/22 06:30 Last Infusion: 02/21/22 06:58 Dose: 0 mls/hr Documented by: [id number] Admin: 02/20/22 22:58 Dose: 125 mls/hr Documented by: [id number] Discharge Plan Visit Data Chief Complaint: Dehydration Stated Complaint: DEHYDRATED ED Provider: Coleman Rangel Discharge Problem: Acute gastrointestinal bleeding, Anemia due to acute blood loss, Acute dehydration Patient Disposition: Admitted As Inpatient Discharge Instructions Interventions: ED Discharge Assessment Last Done: 02/20/22 21:42
[2022-02-20 17:54] LABS: INR 1.9 (0.9-1.1); Partial Thromboplastin Ratio 1.1; Partial Thromboplastin Time 30.2 Seconds (21.0-31.0)
--- NOTE | 2022-02-20 20:00 | History & Physical Report ---
Date of Service February 20, 2022 Assessment & Plan (1) Melena: (2) Dehydration: (3) C1 cervical fracture: (4) Closed dens fracture: (5) Urinary retention: (6) Venous stasis ulcer: (7) Peripheral arterial disease: (8) Non-healing non-surgical wound: (9) Chronic anticoagulation: (10) HTN (hypertension): (11) Paroxysmal atrial fibrillation: Plan: Alonso is an 87 y/o M w/ PmHx aortic stenosis, CAD, paroxysmal ventricular tachycardia, atrial fibrillation on warfarin, PAD s/p repair popliteal aneurysm, venous stasis w/ mult. non-healing leg wounds, recent fall 02/01 w/ C1 and dens closed fracture admitted for possible GI bleed and dehydration. Melena/concern for Upper GI Bleed: -INR 1.9 today, Hgb 10.7 at 14:28, 9.8 at 18:21; BUN 34. -Hemoccult positive. -Holding warfarin, clopidogrel, lasix in setting of possible bleed. -Dia-Blatchford Bleeding Score 12 - high risk for GI bleed. -Type and screen, 2 units of packed RBC in place. -Transfuse if symptomatic, hemodynamically unstable, or if Hgb <8.0 (past hx CAD) -On Protonix 40mg IV BID. -GI consulted for possible further workup. -NPO while possibility of GI bleed. Holding home medications except Metoprolol Succinate. -Trend CBC Q6H, monitor for symptoms. Dehydration: -Free water deficit -2.7L. -Given 500cc bolus NSS in ED. -Ordered 1L LR at maintenance. -NPO while possibility of GI bleed. Holding home vitamins. -Monitor I&O's. Atrial Fibrillation: -Continue Metoprolol succinate 50mg daily. -Tachycardia in ED may be 2/2 dehydration/blood loss. -Reassess HR after fluid resuscitation. -Hold warfarin in face of possible bleed. C1 Cervical Fracture/Dens Closed Fracture: -Keep Takotna J collar on at all times. -If development of new symptoms concerning for compression progression, can get repeat imaging. Urinary retention: -Slade in place. Per patient, urology would like to keep in for a month. -Continue to monitor I&O's. HTN: -BP stable at current time. -Continue metoprolol succinate 50mg daily. PAD/Chronic Venous Stasis Ulcers: -Wound care consulted. CAD/HLD: -Holding atorvastatin, Coenzyme Q10, omega-3 fatty acid while NPO. Fall Precautions DVT Prophylaxis: SCD's. Holding Warfarin. F/E/N: NPO. Holding home oral medications while NPO except Metoprolol succinate. Code Status: DNR/DNI. Dispo: Med/Surg Tele History of Present Illness Primary Care Provider: Red Mix MD Alonso is an 87 y/o M w/ PmHx aortic stenosis, CAD, paroxysmal ventricular tachycardia, atrial fibrillation on warfarin, PAD s/p repair popliteal aneurysm, venous stasis w/ mult. non-healing leg wounds, recent fall 02/01 w/ C1 and dens closed fracture brought in for concerns over dehydration and melena in stool since this morning. Patient was recently hospitalized 02/01 for 3 days at [facility] for a fall which resulted in C1 fracture and closed dens fracture requiring the use of a Takotna J collar. Patient said he has been feeling weaker since his discharge. He also end orsed no bowel movement after discharge since this morning. Son at the bedside stated he is staying with the dad for 5 days of the week and returns back to [facility] for the remainder of the week. His son stated his dad hasn't moved around too much since his fall and even less so when he is not present. Home health does come to help out 2-3 times per week. Patient stated he felt abdominal cramping around 2-3AM and felt like he needed to have a bowel movement but waited until the morning (~8AM) for his son to help him to go to the bathroom. Once he had his bowel movement there was a large amount of soft stool the patient's son described as dark black in color. Patient said he had felt a little dizzy walking to and from the bathroom but he was thinking that was more due to his generalized weakness. PT/OT had been seeing the patient post discharge and PT/OT sessions had been ramped up over the last week. He lost some over the past few months due to decreased appetite and the patient's son endorses it being difficult for his dad to eat most of the food he needs; he does supplement with ensure. Patient also has leg chronic wound ulcers wrapped by wound care outpatient, had an appointment scheduled for tomorrow to take off the wrappings. Patient had an INR check on Sunday which was high at 4.6. He says he was advised not to take his warfarin until he reached therapeutic levels. He says they had discussed the possibility of taking warfarin every other day before he had this bleed based on his increased INR on warfarin daily. He has not taken warfarin since /Sunday when he was told to stop taking it. Denies fevers, chills, nausea, vomiting, headache, changes in vision or hearing, palpitations, abdominal pain or discomfort, shortness of breath. Allergies Allergy/AdvReac Type Severity Reaction Status Date / Time hall Allergy Severe FRESH Verified 02/20/22 17:48 CHERRIES CAUSE THROAT SWELLING/BREATHING DIFFICULTY Home Medications Medication Instructions Recorded Confirmed Type ascorbic acid (vitamin C) 500 mg 1,000 mg PO DAILY cap 07/09/18 02/20/22 History capsule biotin 1 mg capsule 1 mg PO DAILY 07/09/18 02/20/22 History calcium 1 tab PO DAILY tab 07/09/18 02/20/22 History [id number]-Dc-boron 250 mg-40 mg-125 unit tablet (Citracal-D3 Plus Magnesium) coenzyme Q10 200 mg capsule 200 mg PO DAILY 07/09/18 02/20/22 History lutein 6 mg capsule 6 mg PO DAILY 07/09/18 02/20/22 History niacin 250 mg tablet 250 mg PO DAILY 07/09/18 02/20/22 History selenium 200 mcg tablet 200 mcg PO DAILY 07/09/18 02/20/22 History vitamin B complex 1 cap PO DAILY 07/09/18 02/20/22 History vitamin E (dl, acetate) 180 mg 400 units PO DAILY 07/09/18 02/20/22 History (400 unit) capsule omega-3 fatty acids 1,000 mg 2,000 mg PO DAILY cap 07/29/19 02/20/22 History capsule clopidogrel 75 mg tablet (Plavix) 75 mg PO DAILY #90 tab 08/16/21 02/20/22 Rx atorvastatin 20 mg tablet (Lipitor) 20 mg PO DAILY #90 tab 11/28/21 02/20/22 Rx docusate sodium 100 mg capsule 200 mg PO DAILY cap 12/23/21 02/20/22 History (Colace) metoprolol succinate 50 mg 50 mg PO DAILY #90 tab 01/05/22 02/20/22 Rx tablet,extended release 24 hr furosemide 20 mg tablet (Lasix) 20 mg PO DAILY #30 tab 01/23/22 02/20/22 Rx chromium picolinate 200 mcg tablet 200 mcg PO DAILY 02/01/22 02/20/22 History Lift Chair #1 ea 02/07/22 02/20/22 Rx walker #1 ea 02/07/22 02/20/22 Rx cholecalciferol (vitamin D3) 100 5,000 unit PO DAILY cap 02/08/22 02/20/22 History mcg (4,000 unit) capsule Bedside Commode #1 ea 02/10/22 02/20/22 Rx warfarin 7.5 mg tablet See Rx Instructions PO DAILY 02/17/22 02/20/22 History Vitamin K Tab 1 tab PO DAILY 02/20/22 02/20/22 History Past Med/Surg History Medical History Aortic regurgitation Aortic stenosis Arteriosclerotic heart disease Cervical radiculopathy Hypertension Impaired fasting glucose Lumbar canal stenosis Nephrolithiasis Osteopenia Paroxysmal A-fib Paroxysmal ventricular tachycardia Peripheral vascular disease of lower extremity Polyneuropathy Prostate cancer Surgical History H/O arthroscopy of shoulder left H/O foot surgery H/O prostate biopsy H/O repair of rotator cuff History of carpal tunnel surgery History of lumbar laminectomy Hx of appendectomy Hx of tonsillectomy Status post Mohs surgery Family History Father Dementia Arterial vascular disease Myocardial infarction Denies family history of Ovarian cancer Prostate cancer Breast cancer Colorectal cancer Social History Smoking Status: Never smoker Second Hand Exposure: No; Hx Alcohol Use: Yes Alcohol type: wine Hx Substance Use: No Preferred Language: Nicaraguan Communication Ability: Effective Visual Impairment: Limited Hearing Ability: Normal Credit Risk Specialist Required: No marital status: Current Living Situation: Spouse current occupational status: retired How many Children do You have: 1 Feels Safe at Home: Yes Safety Concerns: Feels Safe At This Time Childhood Exposure to Second-Hand Smoke: No caffeine: Yes (tea daily ) Dental Care, Regularly: Yes Physical Activity Frequency: Does not Exercise Seatbelt Use: always Sunscreen Use: No Assistive Devices: Glasses Review of Systems Constitutional: as per Subjective / HPI Physical Exam Constitutional: WD/WN, vitals as above Eyes: PERRL, conjunctivae normal, anicteric sclerae Neck: Takotna J collar in place. Respiratory: normal respiratory effort, lungs clear to auscultation Cardiovascular: Rate/Rhythm: + tachycardic Heart Sounds: normal S1 and normal S2 Capillary refill time of 3 seconds. Gastrointestinal (Abdomen): normal bowel sounds, soft, nontender, no hepatosplenomegaly Skin: no rashes, warm and dry Leg wrappings in place. Psychiatric: A+Ox3, euthymic affect Genitourinary: Slade in place draining yellow urine. Results & Data Results & Data ([facility]) Vital Signs (Past 12 Hours) Vital Signs Temp Pulse Pulse Resp BP BP Pulse Ox 02/20/22 19:00 123 H 14 106/73 99 02/20/22 18:45 130 H 20 100/78 99 02/20/22 18:30 102 H 20 119/76 98 02/20/22 17:05 114 H 15 114/75 99 02/20/22 14:00 36.5 C 130 H 18 116/62 96 Laboratory Results Laboratory Results WBC 12.30 K/uL (4.8-10.8) H 02/21/22 00:17 RBC 2.91 M/uL (4.7-6.1) L 02/21/22 00:17 Hgb 9.5 g/dL (14.0-18.0) L 02/21/22 00:17 Hct 28.3 % (42-52) L 02/21/22 00:17 MCV 97.3 fL (80-100) 02/21/22 00:17 MCH 32.6 pg (25-34) 02/21/22 00:17 MCHC 33.6 g/dL (32-36) 02/21/22 00:17 RDW Std Deviation 47.6 fL (36.4-46.3) H 02/21/22 00:17 RDW Coeff of Miranda 13.5 % (11.5-14.5) 02/21/22 00:17 Plt Count 279 K/uL (130-400) 02/21/22 00:17 MPV 9.2 fL (7.4-10.4) 02/21/22 00:17 Immature Gran % (Auto) 0.3 % 02/21/22 00:17 Neut % (Auto) 69.3 % 02/21/22 00:17 Lymph % (Auto) 16.8 % 02/21/22 00:17 Dewitt % (Auto) 11.8 % 02/21/22 00:17 Eos % (Auto) 1.3 % 02/21/22 00:17 Baso % (Auto) 0.5 % 02/21/22 00:17 Neut # (Auto) 8.52 K/uL (1.4-6.5) H 02/21/22 00:17 Lymph # (Auto) 2.07 K/uL (1.2-3.4) 02/21/22 00:17 Dewitt # (Auto) 1.45 K/uL (0.11-0.59) H 02/21/22 00:17 Eos # (Auto) 0.16 K/uL (0-0.5) 02/21/22 00:17 Baso # (Auto) 0.06 K/uL (0-0.2) 02/21/22 00:17 Immature Gran # (Auto) 0.04 K/uL (0.00-0.02) H 02/21/22 00:17 PT 20.0 Seconds (9.0-12.0) H 02/20/22 14:28 INR 1.9 (0.9-1.1) H 02/20/22 14:28 APTT 30.2 Seconds (21.0-31.0) 02/20/22 14:28 PTT Ratio 1.1 02/20/22 14:28 Sodium 132 mmol/L (136-145) L 02/20/22 14:28 Potassium 4.5 mmol/L (3.5-5.1) 02/20/22 14:28 Chloride 98 mmol/L (98-107) 02/20/22 14:28 Carbon Dioxide 29 mmol/L (21-32) 02/20/22 14:28 Anion Gap 5 (3-11) 02/20/22 14:28 BUN 34 mg/dl (6-23) H 02/20/22 14:28 Creatinine 0.68 mg/dl (0.6-1.4) 02/20/22 14:28 Est Cr Clr Drug Dosing Not Reportable 02/20/22 14:28 Est GFR ( Amer) 99.5 ml/min 02/20/22 14:28 Est GFR (Non-Af Amer) 85.9 ml/min 02/20/22 14:28 BUN/Creatinine Ratio 50.0 (10-20) H 02/20/22 14:28 Glucose 177 mg/dl (70-99(Fasting)) H 02/20/22 14:28 Calcium 8.6 mg/dl (8.5-10.1) 02/20/22 14:28 Total Bilirubin 0.4 mg/dl (0.2-1.0) 02/20/22 14:28 AST 26 U/L (13-39) 02/20/22 14:28 ALT 32 U/L (7-52) 02/20/22 14:28 Alkaline Phosphatase 60 U/L (34-104) 02/20/22 14:28 Total Protein 6.3 gm/dl (6.0-8.3) 02/20/22 14:28 Albumin 2.8 gm/dl (3.4-5.0) L 02/20/22 14:28 Globulin 3.5 gm/dl (2.5-4.0) 02/20/22 14:28 Albumin/Globulin Ratio 0.8 (0.9-2) L 02/20/22 14:28 SARS-CoV-2, RNA, NAAT NEGATIVE (NEGATIVE) 02/20/22 17:00 Blood Type A Positive 02/20/22 16:39 Antibody Screen NEGATIVE 02/20/22 16:39 Crossmatch See Detail 02/20/22 16:39 Code Status & VTE Plan VTE Prophylaxis Plan VTE Prophylaxis will be ordered: Yes Supervising Physician Co-Signing Physician Notes Patient seen and examined, chart reviewed, case discussed with Dr. Conroy and I agree with his assessment and plan as documented above. In brief, patient is an 87-year-old male with history of coronary artery disease, hypertension, paroxysmal ventricular tachycardia, atrial fibrillation on Coumadin anticoagulation. Patient had supratherapeutic INR of 4.6 on Sunday. Was instructed to hold his Coumadin. Has had poor oral intake, constipation. Dark bowel movement today concerning for blood. In the ER patient tachycardic, otherwise hemodynamically stable. Heme positive stools On physical exam he is afebrile, irregularly irregular tachycardia, blood pressure stable, no acute distress Skinwarm, intact, no rashes HEENTnormocephalic/atraumatic, moist mucous membranes, neck supple Heart+ S1, S2, irregularly irregular Lungs CTA, no rales/rhonchi/wheezes Abdomennormoactive bowel sounds, soft, nontender, nondistended Extremitieswarm, well-perfused, no clubbing/cyanosis/edema Labs and images reviewed. INR = 1.9, platelets = 298, Hgb = 9.8 (from 10.7 on arrival) HCT = 32.3, BUN = 34 Assessment/plan: 87-year-old male with history of coronary artery disease, hypertension, hyperlipidemia, atrial fibrillation on Coumadin anticoagulation presenting with concern for melanic stools, moderate drop in hemoglobin from baseline of 14-9.8. Patient with no prior colonoscopy. No history of GI bleed. Admit to medical with telemetry Gentle IV fluids Trend CBC, transfuse for active bleed, symptomatic anemia or hemoglobin less than 8 GI consultation appreciated We will hold Coumadin, Plavix and Lasix Continue metoprolol Continue to monitor heart rate. Goal of less than 110 bpm Maintain Takotna J cervical collar in place at all times as instructed by Ortho Remainder of plan as above Resident Activity Tracking Resident Involvement: Resident Care Provided Care Provided: Adult Hospital Medicine (1) Closed dens fracture Encounter type: initial encounter Qualified Code(s): S12.100A - Unspecified displaced fracture of second cervical vertebra, initial encounter for closed fracture (2) C1 cervical fracture Encounter type: initial encounter Fracture alignment: nondisplaced Fracture morphology: unspecified fracture morphology Fracture type: closed Qualified Code(s): S12.001A - Unspecified nondisplaced fracture of first cervical vertebra, initial encounter for closed fracture
[2022-02-20] MEDS ORDERED: LACTATED RINGER'S 1,000 ML IV SCH (22:31)
[2022-02-21 00:44] LABS: Basophils # (auto) 0.06 K/uL (0-0.2); Basophils % (auto) 0.5 %; Eosinophils # (auto) 0.16 K/uL (0-0.5); Eosinophils % (auto) 1.3 %; Hematocrit (blood only) 28.3 % (42-52); Hemoglobin 9.5 g/dL (14.0-18.0); Immature Granulocytes # (auto) 0.04 K/uL (0.00-0.02); Immature Granulocytes % (auto) 0.3 %; Lymphocytes # (auto) 2.07 K/uL (1.2-3.4); Lymphocytes % (auto) 16.8 %; Mean Corpuscular Hemoglobin 32.6 pg (25-34); Mean Corpuscular Hgb Conc 33.6 g/dL (32-36); Mean Corpuscular Volume 97.3 fL (80-100); Mean Platelet Volume 9.2 fL (7.4-10.4); Monocytes # (auto) 1.45 K/uL (0.11-0.59); Monocytes % (auto) 11.8 %; Neutrophils # (auto) 8.52 K/uL (1.4-6.5); Neutrophils % (auto) 69.3 %; Platelet Count 279 K/uL (130-400); RDW Coefficient of Variation 13.5 % (11.5-14.5); RDW Standard Deviation 47.6 fL (36.4-46.3); Red Blood Count 2.91 M/uL (4.7-6.1)
--- NOTE | 2022-02-21 03:32 | Billing Data ---
Date of Service February 20, 2022 Coding Level of Care Code 06422 Initial Inpt Care Lvl 3
[2022-02-21 05:32] LABS: Appearance Urine Cloudy (Clear); Bilirubin Urine Negative (Negative); Blood Urine 2+ (Negative); Color Urine Yellow; Epithelial Cell Urine Auto 0-5 /lpf (0-5); Glucose Urine UA Negative (Negative); Ketones Urine Negative (Negative); Leukocyte Esterase Urine 3+ (Negative); Nitrite Urine Negative (Negative); Protein Urine Trace (Negative); Specific Gravity Urine 1.021 (1.000-1.030); Urobilinogen Urine Negative (Negative); WBC Urine Automated >30 /hpf (0-5)
[2022-02-21 06:00] LABS: Calcium Oxalate Crystals Urine Present (None Prsent); Mucus Urine Present (None Prsent)
[2022-02-21 06:01] LABS: Bacteria Urine Automated 1+ (Negative)
[2022-02-21 07:09] LABS: Basophils # (auto) 0.05 K/uL (0-0.2); Basophils % (auto) 0.5 %; Eosinophils # (auto) 0.24 K/uL (0-0.5); Eosinophils % (auto) 2.4 %; Hematocrit (blood only) 25.6 % (42-52); Hemoglobin 8.4 g/dL (14.0-18.0); Immature Granulocytes # (auto) 0.02 K/uL (0.00-0.02); Immature Granulocytes % (auto) 0.2 %; Lymphocytes # (auto) 1.66 K/uL (1.2-3.4); Lymphocytes % (auto) 16.8 %; Mean Corpuscular Hemoglobin 32.6 pg (25-34); Mean Corpuscular Hgb Conc 32.8 g/dL (32-36); Mean Corpuscular Volume 99.2 fL (80-100); Mean Platelet Volume 9.3 fL (7.4-10.4); Monocytes # (auto) 1.27 K/uL (0.11-0.59); Monocytes % (auto) 12.9 %; Neutrophils # (auto) 6.62 K/uL (1.4-6.5); Neutrophils % (auto) 67.2 %; Platelet Count 275 K/uL (130-400); RDW Coefficient of Variation 13.5 % (11.5-14.5); RDW Standard Deviation 48.5 fL (36.4-46.3); Red Blood Count 2.58 M/uL (4.7-6.1); White Blood Count 9.86 K/uL (4.8-10.8)
[2022-02-21 07:29] LABS: BUN Creatinine Ratio 45.6 (10-20); Calcium 8.2 mg/dl (8.5-10.1); Creatinine Clr Calc Pharmacy 108.5 ml/min; Est GFR (Non-African American) 92.3 ml/min; Magnesium 1.8 mg/dl (1.7-2.4); Phosphorus 3.4 mg/dl (2.5-4.9); Potassium 4.2 mmol/L (3.5-5.1)
[2022-02-21] MEDS: PANTOprazole 40 MG in SYRINGE 0 ML IV SCH ×2 (10:11→20:41)
[2022-02-21] MEDS: METOPROLOL SUCC 50MG EXT REL TAB PO SCH ×2 (10:12→10:51)
--- NOTE | 2022-02-21 10:13 | Gastrointestinal Consultation ---
Date of Consultation February 21, 2022 Assessment & Plan (1) Melena: Patient is an 87 yo male with melena in the setting of a supratherapeutic INR and recent cervical spine fracture. -IV Protonix 40 mg BID -Continue to monitor H/H -Given cervical fracture, advanced age, and medical comorbidities, would advise conservative management with PPI therapy, correction of INR, and continued monitoring for clinical changes. Supervising Physician Co-Signing Physician Notes Agree with STAR Stephenson as above Gen: Awake, Cooperative, NAD Chest: CTA B/L -w/r/r CVS: RRR Abd: Soft, NT, ND, +BS Continue current therapy and supportive care No plans for invasive testing at this time History of Present Illness Reason for Consultation: Heme positive stool Attending Physician: oRmeo Pacheco MD History of Present Illness Patient is an 87 yo male with PMH of CAD, V tach, aortic stenosis, A fib on chronic anticoagulation with warfarin, PAD s/p popliteal aneurysm repair, venous stasis with non-healing leg wounds, and recent fall several weeks ago where patient sustained a C1/dens closed fracture. He presented to the ED due to concerns of dehydration and melena. He is currently in a J collar. He notes he has been constipated since his recent hospitalization. He moved his bowels after experiencing some abdominal cramping yesterday and noted dark stool. Patient reports he felt slightly weak as well. INR on Sunday was 4.6 and he was holding his Coumadin because of this. He denies fevers, chills, nausea, vomiting, headache, changes in vision or hearing, palpitations, abdominal pain or discomfort, shortness of breath. He denies history of ulcers or family history of GI issues. INR now 1.9. H/H 8.4/25.6. BUN 26. heme positive stool. Allergies Allergy/AdvReac Type Severity Reaction Status Date / Time hall Allergy Severe FRESH Verified 02/20/22 17:48 CHERRIES CAUSE THROAT SWELLING/BREATHING DIFFICULTY Home Medications Medication Instructions Recorded Confirmed Type ascorbic acid (vitamin C) 500 mg 1,000 mg PO DAILY cap 07/09/18 02/20/22 History capsule biotin 1 mg capsule 1 mg PO DAILY 07/09/18 02/20/22 History calcium 1 tab PO DAILY tab 07/09/18 02/20/22 History izh-[id number]-S1-Dv-zeyyrc-Jo-boron 250 mg-40 mg-125 unit tablet (Citracal-D3 Plus Magnesium) coenzyme Q10 200 mg capsule 200 mg PO DAILY 07/09/18 02/20/22 History lutein 6 mg capsule 6 mg PO DAILY 07/09/18 02/20/22 History niacin 250 mg tablet 250 mg PO DAILY 07/09/18 02/20/22 History selenium 200 mcg tablet 200 mcg PO DAILY 07/09/18 02/20/22 History vitamin B complex 1 cap PO DAILY 07/09/18 02/20/22 History vitamin E (dl, acetate) 180 mg 400 units PO DAILY 07/09/18 02/20/22 History (400 unit) capsule omega-3 fatty acids 1,000 mg 2,000 mg PO DAILY cap 07/29/19 02/20/22 History capsule clopidogrel 75 mg tablet (Plavix) 75 mg PO DAILY #90 tab 08/16/21 02/20/22 Rx atorvastatin 20 mg tablet (Lipitor) 20 mg PO DAILY #90 tab 11/28/21 02/20/22 Rx docusate sodium 100 mg capsule 200 mg PO DAILY cap 12/23/21 02/20/22 History (Colace) metoprolol succinate 50 mg 50 mg PO DAILY #90 tab 01/05/22 02/20/22 Rx tablet,extended release 24 hr furosemide 20 mg tablet (Lasix) 20 mg PO DAILY #30 tab 01/23/22 02/20/22 Rx chromium picolinate 200 mcg tablet 200 mcg PO DAILY 02/01/22 02/20/22 History Lift Chair #1 ea 02/07/22 02/20/22 Rx walker #1 ea 02/07/22 02/20/22 Rx cholecalciferol (vitamin D3) 100 5,000 unit PO DAILY cap 02/08/22 02/20/22 History mcg (4,000 unit) capsule Bedside Commode #1 ea 02/10/22 02/20/22 Rx warfarin 7.5 mg tablet See Rx Instructions PO DAILY 02/17/22 02/20/22 History Vitamin K Tab 1 tab PO DAILY 02/20/22 02/20/22 History Patient History Medical History Aortic regurgitation Aortic stenosis Arteriosclerotic heart disease Cervical radiculopathy Hypertension Impaired fasting glucose Lumbar canal stenosis Nephrolithiasis Osteopenia Paroxysmal A-fib Paroxysmal ventricular tachycardia Peripheral vascular disease of lower extremity Polyneuropathy Prostate cancer Surgical History H/O arthroscopy of shoulder left H/O foot surgery H/O prostate biopsy H/O repair of rotator cuff History of carpal tunnel surgery History of lumbar laminectomy Hx of appendectomy Hx of tonsillectomy Status post Mohs surgery Family History Father Dementia Arterial vascular disease Myocardial infarction Denies family history of Ovarian cancer Prostate cancer Breast cancer Colorectal cancer Social History Smoking Status: Never smoker Second Hand Exposure: No; Hx Alcohol Use: Yes Alcohol type: wine Hx Substance Use: No Preferred Language: Bolivian Communication Ability: Effective Visual Impairment: Limited Hearing Ability: Normal Service Center Assistant Required: No marital status: Current Living Situation: Spouse current occupational status: retired How many Children do You have: 1 Feels Safe at Home: Yes Safety Concerns: Feels Safe At This Time Childhood Exposure to Second-Hand Smoke: No caffeine: Yes (tea daily ) Dental Care, Regularly: Yes Physical Activity Frequency: Does not Exercise Seatbelt Use: always Sunscreen Use: No Assistive Devices: Cane and Walker Review of Systems Constitutional: no fever and no chills Respiratory: no cough and no dyspnea Cardiovascular: no chest pain Gastrointestinal: + melena; no abdominal pain, no heartburn, no nausea, no vomiting and no hematemesis Integumentary: no problem reported Psychiatric: no problem reported Hematologic / Lymphatic: + easy bleeding; no unexplained weight loss Physical Exam Constitutional: well developed Respiratory: normal respiratory effort Cardiovascular: Rate/Rhythm: regular rate Gastrointestinal (Abdomen): Inspection/Auscultation: abdomen normal to inspection and normal bowel sounds Percussion/Palpation: abdomen soft; abdomen nontender Musculoskeletal: Head/Neck/Chest: normocephalic Psychiatric: Orientation: alert and oriented x 3 Results & Data ([facility]) Vital Signs (Past 12 Hours) Vital Signs Temp Pulse Pulse Resp BP Pulse Ox 02/21/22 06:58 36.8 C 55 L 20 102/70 94 02/21/22 04:00 36.9 C 65 20 93/61 L 97 02/20/22 22:38 36.8 C 117 H 18 101/75 96 02/20/22 22:37 129 H PG Care Time/CCT Total # of Minutes Spent Total Time Spent with Patient: Total time spent is greater than 50% in coordination of care (as documented) at patient's floor/unit and/or counseling patient: Coding Level of Care Code 07425 Initial Inpt Care Lvl 3 Diagnoses Melena K92.1
--- NOTE | 2022-02-21 11:02 | Hospitalist Progress Note ---
Date of Service February 21, 2022 Assessment & Plan (1) Melena: Plan: -INR 1.3 after vitamin K given in the ER. Hgb 10.7 -> 8.4, will repeat at midday to check for stability as I suspect drop overnight due to fluids given. -Hemoccult positive. -Holding warfarin, clopidogrel, lasix in setting of possible bleed. -Dia-Blatch[place] Bleeding Score 12 - high risk for GI bleed. -Type and screen, 2 units of packed RBC in place. -Transfuse if symptomatic, hemodynamically unstable, or if Hgb <8.0 (past hx CAD) -On Protonix 40mg IV BID. -Appreciate GI consult but clearly risk of EGD at this stage > benefit -Clear liquids (2) Paroxysmal atrial fibrillation: Plan: With RVR - unclear if appropriate vs. inappropriate response. Will continue on his usual metoprolol succinate and uptitrate with Hgb stable. -Continue Metoprolol succinate 50mg daily. -Hold warfarin due to melena as above - discussed anticoagulation with Dr Rankin and she was considering swapping him to Eliquis anyway but he has always been well controlled but agrees with swapping after this episode where he was supratherapeutic leading to a GI bleed (3) Dehydration: Plan: Possible mildly dehydrated after 1L LR given overnight. To avoid hypervolemic state will let him rehydrate with clear liquids today. Continue to monitor I&Os to maintain slight positive balance Possible RVR is appropriate in setting of GI bleed and mild dehydration (4) C1 cervical fracture: Plan: Diagnosed on prior admission due to a fall -Keep [place] collar on at all times. -If development of new symptoms concerning for compression progression, can get repeat imaging. (5) Closed dens fracture: (6) Urinary retention: Plan: -Slade in place. Per patient, urology would like to keep in for a month. -Continue to monitor I&O's. (7) Venous stasis ulcer: (8) Peripheral arterial disease: Plan: Restart atorvastatin CLopidogrel on hold in setting of GI bleed (9) Chronic anticoagulation: (10) HTN (hypertension): Plan: -BP stable at current time. -Continue metoprolol succinate 50mg daily. Plan: Fall Precautions DVT Prophylaxis: SCD's. Holding Warfarin. F/E/N: Clear liquids today Code Status: DNR/DNI. Dispo: Continue on Med/Surg Tele Admission and Anticipated Discharge Date Admission Date: February 20, 2022 Subjective No further black stool or bright red blood in stool. No nausea, vomiting or abdominal pain. He feels hungry and wants to start on a diet. A. fib with RVR on the monitor - unknown how appropriate of a response this currently is with GI bleed but patient is asymptomatic with this - no chest pain, shortness of breath or palpitations Review of Systems Review of Systems: All systems reviewed & are unremarkable except as noted in Subjective Physical Exam Constitutional: WD/WN, vitals as above [place] collar in place Eyes: + anicteric sclerae; normal pupil size ENMT: Mouth: + dry oral mucous membranes Respiratory: normal respiratory effort; no respiratory distress Auscultation: + diminished lung sounds (bibasal); no crackles, no rales, no rhonchi and no wheezes Cardiovascular: Rate/Rhythm: + tachycardic and + irregularly irregular Heart Sounds: no murmur Vessels: no JVD Extremities: normal capillary refill; no calf tenderness and no pedal edema Gastrointestinal (Abdomen): Inspection/Auscultation: normal bowel sounds Percussion/Palpation: abdomen soft; abdomen nontender, no guarding and abdomen not rigid Musculoskeletal: no cyanosis or clubbing, extremities motor strength 5/5 Skin: no rashes, warm and dry Neurologic: moves all extremities and awake; not confused Psychiatric: A+Ox3, euthymic affect Results & Data Results & Data ([facility]) Vital Signs (Past 12 Hours) Vital Signs Temp Pulse Resp BP Pulse Ox 02/21/22 06:58 36.8 C 55 L 20 102/70 94 02/21/22 04:00 36.9 C 65 20 93/61 L 97 PG Care Time/CCT Total # of Minutes Spent Total Time Spent with Patient: Total time spent is greater than 50% in coordination of care (as documented) at patient's floor/unit and/or counseling patient: Coding Level of Care Code 84464 Subseq Hosp Care Lvl 2 Diagnoses Melena K92.1 Dehydration E86.0 C1 cervical fracture S12.001A Encounter type: initial encounter Fracture alignment: nondisplaced Fracture morphology: unspecified fracture morphology Fracture type: closed Closed dens fracture S12.100A Encounter type: initial encounter Urinary retention R33.9 Venous stasis ulcer I83.009; L97.909 Peripheral arterial disease I73.9 Chronic anticoagulation Z79.01 HTN (hypertension) I10 Paroxysmal atrial fibrillation I48.0 (1) Closed dens fracture Encounter type: initial encounter Qualified Code(s): S12.100A - Unspecified displaced fracture of second cervical vertebra, initial encounter for closed fracture (2) C1 cervical fracture Encounter type: initial encounter Fracture alignment: nondisplaced Fracture morphology: unspecified fracture morphology Fracture type: closed Qualified Code(s): S12.001A - Unspecified nondisplaced fracture of first cervical vertebra, initial encounter for closed fracture
[2022-02-21 12:35] LABS: Hematocrit (blood only) 27.3 % (42-52); Mean Corpuscular Hemoglobin 32.1 pg (25-34); Mean Corpuscular Volume 97.5 fL (80-100); Mean Platelet Volume 9.1 fL (7.4-10.4); Platelet Count 291 K/uL (130-400); RDW Coefficient of Variation 13.7 % (11.5-14.5); RDW Standard Deviation 48.6 fL (36.4-46.3); White Blood Count 10.16 K/uL (4.8-10.8)
[2022-02-21 12:44] LABS: INR 1.3 (0.9-1.1)
[2022-02-21 13:02] LABS: Basophils # (auto) 0.05 K/uL (0-0.2); Basophils % (auto) 0.5 %; Eosinophils # (auto) 0.26 K/uL (0-0.5); Eosinophils % (auto) 2.6 %; Immature Granulocytes # (auto) 0.02 K/uL (0.00-0.02); Immature Granulocytes % (auto) 0.2 %; Lymphocytes # (auto) 1.96 K/uL (1.2-3.4); Lymphocytes % (auto) 19.3 %; Monocytes # (auto) 1.21 K/uL (0.11-0.59); Monocytes % (auto) 11.9 %; Neutrophils # (auto) 6.66 K/uL (1.4-6.5); Neutrophils % (auto) 65.5 %; Polychromasia 1+
[2022-02-22 06:22] LABS: INR 1.3 (0.9-1.1); Prothrombin Time 13.3 Seconds (9.0-12.0)
[2022-02-22 07:45] LABS: Basophils # (auto) 0.03 K/uL (0-0.2); Basophils % (auto) 0.4 %; Eosinophils # (auto) 0.23 K/uL (0-0.5); Eosinophils % (auto) 2.8 %; Hematocrit (blood only) 24.3 % (42-52); Hemoglobin 7.9 g/dL (14.0-18.0); Immature Granulocytes # (auto) 0.02 K/uL (0.00-0.02); Immature Granulocytes % (auto) 0.2 %; Lymphocytes # (auto) 1.62 K/uL (1.2-3.4); Lymphocytes % (auto) 19.6 %; Mean Corpuscular Hemoglobin 32.5 pg (25-34); Mean Corpuscular Hgb Conc 32.5 g/dL (32-36); Mean Platelet Volume 9.4 fL (7.4-10.4); Monocytes # (auto) 1.04 K/uL (0.11-0.59); Monocytes % (auto) 12.6 %; Neutrophils # (auto) 5.31 K/uL (1.4-6.5); Neutrophils % (auto) 64.4 %; Platelet Count 276 K/uL (130-400); RDW Coefficient of Variation 13.9 % (11.5-14.5); RDW Standard Deviation 50.2 fL (36.4-46.3); Red Blood Count 2.43 M/uL (4.7-6.1); White Blood Count 8.25 K/uL (4.8-10.8)
[2022-02-22 08:12] LABS: RBC Morphology Unremarkable
[2022-02-22] MEDS: METOPROLOL SUCC 50MG EXT REL TAB PO SCH (08:23)
[2022-02-22] MEDS: PANTOprazole 40 MG in SYRINGE 0 ML IV SCH ×2 (08:23→22:02)
[2022-02-22 08:34] LABS: BUN Creatinine Ratio 33.3 (10-20); Calcium 8.1 mg/dl (8.5-10.1); Creatinine Clr Calc Pharmacy 108.5 ml/min; Est GFR (Non-African American) 92.3 ml/min; Magnesium 1.8 mg/dl (1.7-2.4); Potassium 3.8 mmol/L (3.5-5.1)
--- NOTE | 2022-02-22 09:31 | Gastroenterology Progress Note ---
Date of Service February 22, 2022 Assessment & Plan (1) Melena: Plan: -Continue IV Protonix 40 mg BID -Continue to monitor H/H -Continue to monitor for overt GI bleeding -Supportive care per primary team Admission and Anticipated Discharge Date Admission Date: February 20, 2022 Supervising Physician Co-Signing Physician Notes Doing well at present, nursing reports no BM's today I agree with Yasmine Sal PAC as above Abd: Soft, NT, ND, +BS Continue current therapy and supportive care No plans for endoscopic workup at present. Subjective Patient is an 87 yo male with melena. H/H 7.9/24.3. No overt GI bleeding at present. He denies abdominal pain. He continues on IV Pantoprazole 40 mg BID. He denies other acute issues at present. INR 1.3. Review of Systems Constitutional: no fever and no chills Gastrointestinal: no abdominal pain, no nausea, no vomiting, no coffee ground emesis, no hematemesis and no melena Physical Exam Constitutional: well developed Respiratory: normal respiratory effort Cardiovascular: Rate/Rhythm: regular rate Gastrointestinal (Abdomen): Inspection/Auscultation: abdomen normal to inspection Musculoskeletal: Head/Neck/Chest: normocephalic Psychiatric: Orientation: alert and oriented x 3 Results & Data Results & Data ([facility]) Vital Signs (Past 12 Hours) Vital Signs Temp Pulse Resp BP Pulse Ox 02/22/22 07:00 36.8 C 59 L 20 106/68 92 02/22/22 03:35 36.7 C 124 H 20 124/80 96 02/21/22 23:00 37.0 C 114 H 20 106/67 97 PG Care Time/CCT Total # of Minutes Spent Total Time Spent with Patient: Total time spent is greater than 50% in coordination of care (as documented) at patient's floor/unit and/or counseling patient: Coding Level of Care Code 53546 Subseq Hosp Care Lvl 3 Diagnoses Melena K92.1
[2022-02-22] MEDS ORDERED: SODIUM CHLORIDE 0.9% 250 ML IV PRN (09:49)
[2022-02-22] MEDS: ATORVASTATIN 20 MG TAB PO SCH (11:14)
--- NOTE | 2022-02-22 11:31 | Hospitalist Progress Note ---
Date of Service February 22, 2022 Assessment & Plan (1) Anemia due to acute blood loss: Plan: Acute blood loss anemia Secondary to gastrointestinal bleeding Hemoglobin has dropped further down to 7.9 with a baseline of hemoglobin 14.6 just 2 to 3 weeks ago No further bleeding since admission Remains tachycardic with some soft blood pressures Transfuse 1 unit PRBCs today Monitor CBC in the morning (2) Melena: Plan: GI bleed d/t anticoagulant therapy Likely upper GI bleed given melena Could be secondary to ulcer given recent hospitalization for cervical spine frac ture -INR 1.3 after vitamin K given in the ER. Hgb 10.7 -> 7.9 -Hemoccult positive, but no further melena since admission -Continue holding warfarin, clopidogrel -Continue Protonix 40mg IV BID. -Appreciate GI consult-no plans for endoscopic evaluation at this time as he is stabilized and has C1 fracture which would be risky for anesthesia and positioning with EGD -Continue clear liquids for now but can likely advance diet tomorrow if no further GI bleed -Patient would like to transition to Eliquis when he restarts anticoagulation- Will plan to restart anticoagulation on 02/27 if remains stable (3) Paroxysmal atrial fibrillation: Plan: With RVR -rates remain elevated secondary to acute blood loss -Continue Metoprolol succinate 50mg daily which is his home dose -Hold warfarin due to melena as above -anticoagulation expert Dr Rankin was considering swapping him to Eliquis given that this episode was secondary to supratherapeutic INR leading to a GI bleed -Continue to monitor on telemetry Hopefully rates will improve with PRBC transfusion (4) C1 cervical fracture: Plan: Diagnosed on prior admission due to a fall -Keep [place] J collar on at all times. -If development of new symptoms concerning for compression progression, can get repeat imaging. -He was to have repeat CT scan as an outpatient in the near future with spine surgeon (5) Closed dens fracture: (6) Urinary retention: Plan: -Slade in place. Per patient, urology would like to keep in for a month. Urinalysis appears infected but could be colonization due to indwelling Slade He has no fevers or urinary symptoms Follow urine culture No antibiotics at this time (7) Venous stasis ulcer: Plan: Now resolved (8) Peripheral arterial disease: Plan: Continue atorvastatin CLopidogrel on hold in setting of GI bleed (9) Chronic anticoagulation: Plan: On Coumadin which is now on hold and reversed Follow INR in the morning Plan to start Eliquis once GI bleeding resolved (10) HTN (hypertension): Plan: -BP stable at current time. -Continue metoprolol succinate 50mg daily. Holding home Lasix Plan: Fall Precautions DVT Prophylaxis: SCD's. Holding Warfarin. F/E/N: Continue clear liquids today Code Status: DNR/DNI. Dispo: Continue on Med/Surg Tele, but possible discharge home tomorrow if GI bleed remains resolved and hemoglobin stable Consult PT/OT Admission and Anticipated Discharge Date Admission Date: February 20, 2022 Subjective Feeling ok, no CP or SOB, no abd pain, no bloody stools since admission Tele with Afib rates 100s-110s Review of Systems Review of Systems: All systems reviewed & are unremarkable except as noted in HPI & below Physical Exam Constitutional: WD/WN, vitals as above Eyes: + anicteric sclerae Neck: trachea midline, no thyromegaly Respiratory: normal respiratory effort, lungs clear to auscultation Cardiovascular: Rate/Rhythm: + tachycardic (mild) and + irregularly irregular Chest (Breasts): Chest: normal inspection of chest Gastrointestinal (Abdomen): normal bowel sounds, soft, nontender, no hepatosplenomegaly Musculoskeletal: Extremities: + extremities abnormal to inspection (coban wraps in place bilat), no cyanosis and no clubbing Skin: no rashes, warm and dry Neurologic: moves all extremities and awake; no focal motor deficits Psychiatric: A+Ox3, euthymic affect Genitourinary: no penis abnormality (Slade in place with clear yellow urine) Lymphatic: no lymphedema Results & Data Results & Data ([facility]) Vital Signs (Past 12 Hours) Vital Signs Temp Pulse Resp BP Pulse Ox 02/22/22 07:00 36.8 C 59 L 20 106/68 92 02/22/22 03:35 36.7 C 124 H 20 124/80 96 Laboratory Results 02/22/22 02/22/22 02/22/22 Range/Units 07:24 05:51 05:51 WBC 8.25 (4.8-10.8) K/uL RBC 2.43 L (4.7-6.1) M/uL Hgb 7.9 L (14.0-18.0) g/dL Hct 24.3 L (42-52) % MCV 100.0 (80-100) fL MCH 32.5 (25-34) pg MCHC 32.5 (32-36) g/dL RDW Std Deviation 50.2 H (36.4-46.3) fL RDW Coeff of Miranda 13.9 (11.5-14.5) % Plt Count 276 (130-400) K/uL MPV 9.4 (7.4-10.4) fL Immature Gran % (Auto) 0.2 % Neut % (Auto) 64.4 % Lymph % (Auto) 19.6 % [place] % (Auto) 12.6 % Eos % (Auto) 2.8 % Baso % (Auto) 0.4 % Neut # (Auto) 5.31 (1.4-6.5) K/uL Lymph # (Auto) 1.62 (1.2-3.4) K/uL [place] # (Auto) 1.04 H (0.11-0.59) K/uL Eos # (Auto) 0.23 (0-0.5) K/uL Baso # (Auto) 0.03 (0-0.2) K/uL Immature Gran # (Auto) 0.02 (0.00-0.02) K/uL RBC Morphology Unremarkable Polychromasia PT (9.0-12.0) Seconds INR (0.9-1.1) Sodium 138 (136-145) mmol/L Potassium 3.8 (3.5-5.1) mmol/L Chloride 105 (98-107) mmol/L Carbon Dioxide 30 (21-32) mmol/L Anion Gap 3 (3-11) BUN 19 (6-23) mg/dl Creatinine 0.57 L (0.6-1.4) mg/dl Est Cr Clr Drug Dosing 108.5 ml/min Est GFR ( Amer) 107.0 ml/min Est GFR (Non-Af Amer) 92.3 ml/min BUN/Creatinine Ratio 33.3 H (10-20) Glucose 89 (70-99(Fasting)) mg/dl POC Glucose 111 H (70-99) mg/dl Calcium 8.1 L (8.5-10.1) mg/dl Magnesium 1.8 (1.7-2.4) mg/dl Blood Type Antibody Screen Crossmatch 02/22/22 02/21/22 02/21/22 Range/Units 05:49 20:17 16:39 WBC (4.8-10.8) K/uL RBC (4.7-6.1) M/uL Hgb (14.0-18.0) g/dL Hct (42-52) % MCV (80-100) fL MCH (25-34) pg MCHC (32-36) g/dL RDW Std Deviation (36.4-46.3) fL RDW Coeff of Miranda (11.5-14.5) % Plt Count (130-400) K/uL MPV (7.4-10.4) fL Immature Gran % (Auto) % Neut % (Auto) % Lymph % (Auto) % [place] % (Auto) % Eos % (Auto) % Baso % (Auto) % Neut # (Auto) (1.4-6.5) K/uL Lymph # (Auto) (1.2-3.4) K/uL [place] # (Auto) (0.11-0.59) K/uL Eos # (Auto) (0-0.5) K/uL Baso # (Auto) (0-0.2) K/uL Immature Gran # (Auto) (0.00-0.02) K/uL RBC Morphology Polychromasia PT 13.3 H (9.0-12.0) Seconds INR 1.3 H (0.9-1.1) Sodium (136-145) mmol/L Potassium (3.5-5.1) mmol/L Chloride (98-107) mmol/L Carbon Dioxide (21-32) mmol/L Anion Gap (3-11) BUN (6-23) mg/dl Creatinine (0.6-1.4) mg/dl Est Cr Clr Drug Dosing ml/min Est GFR ( Amer) ml/min Est GFR (Non-Af Amer) ml/min BUN/Creatinine Ratio (10-20) Glucose (70-99(Fasting)) mg/dl POC Glucose 168 H 124 H (70-99) mg/dl Calcium (8.5-10.1) mg/dl Magnesium (1.7-2.4) mg/dl Blood Type Antibody Screen Crossmatch 02/21/22 02/21/22 02/21/22 Range/Units 12:17 12:17 11:33 WBC 10.16 (4.8-10.8) K/uL RBC 2.80 L (4.7-6.1) M/uL Hgb 9.0 L (14.0-18.0) g/dL Hct 27.3 L (42-52) % MCV 97.5 (80-100) fL MCH 32.1 (25-34) pg MCHC 33.0 (32-36) g/dL RDW Std Deviation 48.6 H (36.4-46.3) fL RDW Coeff of [place] 13.7 (11.5-14.5) % Plt Count 291 (130-400) K/uL MPV 9.1 (7.4-10.4) fL Immature Gran % (Auto) 0.2 % Neut % (Auto) 65.5 % Lymph % (Auto) 19.3 % [place] % (Auto) 11.9 % Eos % (Auto) 2.6 % Baso % (Auto) 0.5 % Neut # (Auto) 6.66 H (1.4-6.5) K/uL Lymph # (Auto) 1.96 (1.2-3.4) K/uL [place] # (Auto) 1.21 H (0.11-0.59) K/uL Eos # (Auto) 0.26 (0-0.5) K/uL Baso # (Auto) 0.05 (0-0.2) K/uL Immature Gran # (Auto) 0.02 (0.00-0.02) K/uL RBC Morphology Polychromasia 1+ PT 14.0 H (9.0-12.0) Seconds INR 1.3 H (0.9-1.1) Sodium (136-145) mmol/L Potassium (3.5-5.1) mmol/L Chloride (98-107) mmol/L Carbon Dioxide (21-32) mmol/L Anion Gap (3-11) BUN (6-23) mg/dl Creatinine (0.6-1.4) mg/dl Est Cr Clr Drug Dosing ml/min Est GFR ( Amer) ml/min Est GFR (Non-Af Amer) ml/min BUN/Creatinine Ratio (10-20) Glucose (70-99(Fasting)) mg/dl POC Glucose 118 H (70-99) mg/dl Calcium (8.5-10.1) mg/dl Magnesium (1.7-2.4) mg/dl Blood Type Antibody Screen Crossmatch 02/20/22 Range/Units 16:39 WBC (4.8-10.8) K/uL RBC (4.7-6.1) M/uL Hgb (14.0-18.0) g/dL Hct (42-52) % MCV (80-100) fL MCH (25-34) pg MCHC (32-36) g/dL RDW Std Deviation (36.4-46.3) fL RDW Coeff of Miranda (11.5-14.5) % Plt Count (130-400) K/uL MPV (7.4-10.4) fL Immature Gran % (Auto) % Neut % (Auto) % Lymph % (Auto) % [place] % (Auto) % Eos % (Auto) % Baso % (Auto) % Neut # (Auto) (1.4-6.5) K/uL Lymph # (Auto) (1.2-3.4) K/uL [place] # (Auto) (0.11-0.59) K/uL Eos # (Auto) (0-0.5) K/uL Baso # (Auto) (0-0.2) K/uL Immature Gran # (Auto) (0.00-0.02) K/uL RBC Morphology Polychromasia PT (9.0-12.0) Seconds INR (0.9-1.1) Sodium (136-145) mmol/L Potassium (3.5-5.1) mmol/L Chloride (98-107) mmol/L Carbon Dioxide (21-32) mmol/L Anion Gap (3-11) BUN (6-23) mg/dl Creatinine (0.6-1.4) mg/dl Est Cr Clr Drug Dosing ml/min Est GFR ( Amer) ml/min Est GFR (Non-Af Amer) ml/min BUN/Creatinine Ratio (10-20) Glucose (70-99(Fasting)) mg/dl POC Glucose (70-99) mg/dl Calcium (8.5-10.1) mg/dl Magnesium (1.7-2.4) mg/dl Blood Type A Positive Antibody Screen NEGATIVE Crossmatch See Detail PG Care Time/CCT Total # of Minutes Spent Total Time Spent with Patient: Total time spent is greater than 50% in coordination of care (as documented) at patient's floor/unit and/or counseling patient: Coding Level of Care Code 49691 Subseq Hosp Care Lvl 3 Diagnoses Melena K92.1 Paroxysmal atrial fibrillation I48.0 C1 cervical fracture S12.001A Encounter type: initial encounter Fracture alignment: nondisplaced Fracture morphology: unspecified fracture morphology Fracture type: closed Closed dens fracture S12.100A Encounter type: initial encounter Urinary retention R33.9 Venous stasis ulcer I83.009; L97.909 Peripheral arterial disease I73.9 Chronic anticoagulation Z79.01 HTN (hypertension) I10 Anemia due to acute blood loss D62 (1) Closed dens fracture Encounter type: initial encounter Qualified Code(s): S12.100A - Unspecified displaced fracture of second cervical vertebra, initial encounter for closed fracture (2) C1 cervical fracture Encounter type: initial encounter Fracture alignment: nondisplaced Fracture morphology: unspecified fracture morphology Fracture type: closed Qualified Code(s): S12.001A - Unspecified nondisplaced fracture of first cervical vertebra, initial encounter for closed fracture
--- NOTE | 2022-02-22 15:09 | Electrocardiogram Report ---
Test Reason : Blood Pressure : / mmHG Vent. Rate : 126 BPM Atrial Rate : 054 BPM P-R Int : 000 ms QRS Dur : 082 ms QT Int : 322 ms P-R-T Axes : 000 011 046 degrees QTc Int : 466 ms Poor data quality, interpretation may be adversely affected Atrial fibrillation with rapid ventricular response Nonspecific ST and T wave abnormality Abnormal ECG When compared with ECG of 22-JUL-2014 06:52, Nonspecific T wave abnormality, improved in Inferior leads Confirmed by Raj Vargas ([id number]) on 02/22/2022 3:08:55 PM Referred By: REFERRED SELF Confirmed By:Raj Vargas
[2022-02-23 06:46] LABS: Basophils # (auto) 0.06 K/uL (0-0.2); Basophils % (auto) 0.7 %; Eosinophils % (auto) 3.7 %; Hemoglobin 8.8 g/dL (14.0-18.0); Immature Granulocytes # (auto) 0.02 K/uL (0.00-0.02); Immature Granulocytes % (auto) 0.2 %; Lymphocytes # (auto) 1.93 K/uL (1.2-3.4); Lymphocytes % (auto) 23.5 %; Mean Corpuscular Hemoglobin 31.9 pg (25-34); Mean Corpuscular Hgb Conc 32.6 g/dL (32-36); Mean Corpuscular Volume 97.8 fL (80-100); Mean Platelet Volume 8.9 fL (7.4-10.4); Monocytes # (auto) 1.07 K/uL (0.11-0.59); Neutrophils # (auto) 4.82 K/uL (1.4-6.5); Neutrophils % (auto) 58.9 %; Platelet Count 257 K/uL (130-400); RDW Coefficient of Variation 15.7 % (11.5-14.5); RDW Standard Deviation 55.6 fL (36.4-46.3); Red Blood Count 2.76 M/uL (4.7-6.1)
[2022-02-23 06:53] LABS: INR 1.3 (0.9-1.1); Prothrombin Time 13.6 Seconds (9.0-12.0)
[2022-02-23 07:12] LABS: Albumin Globulin Ratio 0.8 (0.9-2); Albumin Level 2.4 gm/dl (3.4-5.0); BUN Creatinine Ratio 23.4 (10-20); Bilirubin,Total 0.8 mg/dl (0.2-1.0); Calcium 8.1 mg/dl (8.5-10.1); Creatinine Clr Calc Pharmacy 96.6 ml/min; Globulin 2.9 gm/dl (2.5-4.0); Magnesium 1.8 mg/dl (1.7-2.4); Potassium 3.8 mmol/L (3.5-5.1); Total Protein 5.3 gm/dl (6.0-8.3)
[2022-02-23] MEDS: METOPROLOL SUCC 50MG EXT REL TAB PO SCH (07:56)
[2022-02-23] MEDS: ATORVASTATIN 20 MG TAB PO SCH (07:56)
[2022-02-23] MEDS: PANTOprazole 40 MG in SYRINGE 0 ML IV SCH (08:00)
--- NOTE | 2022-02-23 17:30 | Hospitalist Progress Note ---
Date of Service February 23, 2022 Assessment & Plan (1) Anemia due to acute blood loss: Plan: Acute blood loss anemia Secondary to gastrointestinal bleeding Hemoglobin dropped down to 7.9 with a baseline of hemoglobin 14.6 just 2 to 3 weeks ago No further bleeding since admission Transfuse blood pressures are now improved and tachycardia resolved 1 unit PRBCs on 02/22 and hemoglobin up to 8.8 Blood pressures normalized and tachycardia resolved Monitor CBC in the morning Remain off anticoagulation For now (2) Melena: Plan: GI bleed d/t anticoagulant therapy Likely upper GI bleed given melena Could be secondary to ulcer given recent hospitalization for cervical spine fracture -INR 1.3 after vitamin K given in the ER -Hemoccult positive, but no further melena since admission -Continue holding warfarin, clopidogrel -Continue Protonix 40mg IV BID and plan to convert to p.o. tonight -Appreciate GI consult-no plans for endoscopic evaluation at this time as he is stabilized and has C1 fracture which would be risky for anesthesia and positioning with EGD -advance diet to low fiber -Patient would like to transition to Eliquis when he restarts anticoagulation-Will plan to restart anticoagulation on 02/27 if remains stable (3) Paroxysmal atrial fibrillation: Plan: With RVR -rates remain elevated secondary to acute blood loss -Continue Metoprolol succinate 50mg daily which is his home dose -Hold warfarin due to melena as above -anticoagulation expert Dr Rankin was considering swapping him to Eliquis given that this episode was secondary to supratherapeutic INR leading to a GI bleed -Continue to monitor on telemetry Hopefully rates will improve with PRBC transfusion (4) C1 cervical fracture: Plan: Diagnosed on prior admission due to a fall -Keep [place] J collar on at all times but can loosen to eat and bathe -If development of new symptoms concerning for compression progression, can get repeat imaging. -He was to have repeat CT scan as an outpatient in the near future with spine surgeon (5) Closed dens fracture: (6) Urinary retention: Plan: -Slade in place. Per patient, urology would like to keep in for a month. Urinalysis appears infected but could be colonization due to indwelling Slade He has no fevers or urinary symptoms Follow urine culture-growing 50,000 CFU gram-positive cocci-no need for treatment No antibiotics at this time (7) Venous stasis ulcer: Plan: Now resolved (8) Peripheral arterial disease: Plan: Continue atorvastatin CLopidogrel on hold in setting of GI bleed (9) Chronic anticoagulation: Plan: On Coumadin which is now on hold and reversed Follow INR in the morning Plan to start Eliquis once GI bleeding resolved (10) HTN (hypertension): Plan: -BP stable at current time. -Continue metoprolol succinate 50mg daily. Holding home Lasix but will restart tomorrow Plan: Fall Precautions DVT Prophylaxis: SCD's. Holding Warfarin. Code Status: DNR/DNI. Dispo: Continue on Med/Surg Tele, awaiting placement at rehab-needs insurance authorization Consult PT/OT Admission and Anticipated Discharge Date Admission Date: February 20, 2022 Subjective Patient feeling better, no abdominal pain. No bowel movement at all since admission. No bleeding from anywhere. He does feel that he has had second thoughts about rehab and is agreeable now No chest pain or shortness of breath. Review of Systems Review of Systems: All systems reviewed & are unremarkable except as noted in HPI & below Physical Exam Constitutional: WD/WN, vitals as above Eyes: + anicteric sclerae Neck: trachea midline, no thyromegaly [place] J collar in place Respiratory: normal respiratory effort, lungs clear to auscultation Cardiovascular: Rate/Rhythm: regular rate and + irregularly irregular Chest (Breasts): Chest: normal inspection of chest Gastrointestinal (Abdomen): normal bowel sounds, soft, nontender, no hepatosplenomegaly Musculoskeletal: Extremities: + extremities abnormal to inspection (coban wraps in place bilat), no cyanosis and no clubbing Skin: no rashes, warm and dry Neurologic: moves all extremities and awake; no focal motor deficits Psychiatric: A+Ox3, euthymic affect Genitourinary: no penis abnormality (Slade in place with clear yellow urine) Lymphatic: no lymphedema Results & Data Results & Data ([facility]) Vital Signs (Past 12 Hours) Vital Signs Temp Pulse Pulse Resp BP Pulse Ox 02/23/22 14:00 36.5 C 66 20 105/65 98 02/23/22 13:27 108/71 02/23/22 10:58 37.1 C 97 H 20 102/67 96 02/23/22 09:42 115 H 02/23/22 06:46 36.6 C 60 20 115/76 95 Laboratory Results 02/23/22 02/23/22 02/23/22 Range/Units 06:30 06:30 06:30 WBC 8.20 (4.8-10.8) K/uL RBC 2.76 L (4.7-6.1) M/uL Hgb 8.8 L (14.0-18.0) g/dL Hct 27.0 L (42-52) % MCV 97.8 (80-100) fL MCH 31.9 (25-34) pg MCHC 32.6 (32-36) g/dL RDW Std Deviation 55.6 H (36.4-46.3) fL RDW Coeff of Miranda 15.7 H (11.5-14.5) % Plt Count 257 (130-400) K/uL MPV 8.9 (7.4-10.4) fL Immature Gran % (Auto) 0.2 % Neut % (Auto) 58.9 % Lymph % (Auto) 23.5 % Granite % (Auto) 13.0 % Eos % (Auto) 3.7 % Baso % (Auto) 0.7 % Neut # (Auto) 4.82 (1.4-6.5) K/uL Lymph # (Auto) 1.93 (1.2-3.4) K/uL Granite # (Auto) 1.07 H (0.11-0.59) K/uL Eos # (Auto) 0.30 (0-0.5) K/uL Baso # (Auto) 0.06 (0-0.2) K/uL Immature Gran # (Auto) 0.02 (0.00-0.02) K/uL PT 13.6 H (9.0-12.0) Seconds INR 1.3 H (0.9-1.1) Sodium 136 (136-145) mmol/L Potassium 3.8 (3.5-5.1) mmol/L Chloride 104 (98-107) mmol/L Carbon Dioxide 30 (21-32) mmol/L Anion Gap 2 L (3-11) BUN 15 (6-23) mg/dl Creatinine 0.64 (0.6-1.4) mg/dl Est Cr Clr Drug Dosing 96.6 ml/min Est GFR ( Amer) 102.0 ml/min Est GFR (Non-Af Amer) 88.0 ml/min BUN/Creatinine Ratio 23.4 H (10-20) Glucose 93 (70-99(Fasting)) mg/dl Calcium 8.1 L (8.5-10.1) mg/dl Magnesium 1.8 (1.7-2.4) mg/dl Total Bilirubin 0.8 (0.2-1.0) mg/dl AST 24 (13-39) U/L ALT 23 (7-52) U/L Alkaline Phosphatase 55 (34-104) U/L Total Protein 5.3 L (6.0-8.3) gm/dl Albumin 2.4 L (3.4-5.0) gm/dl Globulin 2.9 (2.5-4.0) gm/dl Albumin/Globulin Ratio 0.8 L (0.9-2) Crossmatch 02/20/22 Range/Units 16:39 WBC (4.8-10.8) K/uL RBC (4.7-6.1) M/uL Hgb (14.0-18.0) g/dL Hct (42-52) % MCV (80-100) fL MCH (25-34) pg MCHC (32-36) g/dL RDW Std Deviation (36.4-46.3) fL RDW Coeff of Miranda (11.5-14.5) % Plt Count (130-400) K/uL MPV (7.4-10.4) fL Immature Gran % (Auto) % Neut % (Auto) % Lymph % (Auto) % Granite % (Auto) % Eos % (Auto) % Baso % (Auto) % Neut # (Auto) (1.4-6.5) K/uL Lymph # (Auto) (1.2-3.4) K/uL Granite # (Auto) (0.11-0.59) K/uL Eos # (Auto) (0-0.5) K/uL Baso # (Auto) (0-0.2) K/uL Immature Gran # (Auto) (0.00-0.02) K/uL PT (9.0-12.0) Seconds INR (0.9-1.1) Sodium (136-145) mmol/L Potassium (3.5-5.1) mmol/L Chloride (98-107) mmol/L Carbon Dioxide (21-32) mmol/L Anion Gap (3-11) BUN (6-23) mg/dl Creatinine (0.6-1.4) mg/dl Est Cr Clr Drug Dosing ml/min Est GFR ( Amer) ml/min Est GFR (Non-Af Amer) ml/min BUN/Creatinine Ratio (10-20) Glucose (70-99(Fasting)) mg/dl Calcium (8.5-10.1) mg/dl Magnesium (1.7-2.4) mg/dl Total Bilirubin (0.2-1.0) mg/dl AST (13-39) U/L ALT (7-52) U/L Alkaline Phosphatase (34-104) U/L Total Protein (6.0-8.3) gm/dl Albumin (3.4-5.0) gm/dl Globulin (2.5-4.0) gm/dl Albumin/Globulin Ratio (0.9-2) Crossmatch See Detail PG Care Time/CCT Total # of Minutes Spent Total Time Spent with Patient: Total time spent is greater than 50% in coordination of care (as documented) at patient's floor/unit and/or counseling patient: Coding Level of Care Code 23077 Subseq Hosp Care Lvl 2 Diagnoses Anemia due to acute blood loss D62 Melena K92.1 Paroxysmal atrial fibrillation I48.0 C1 cervical fracture S12.001A Encounter type: initial encounter Fracture alignment: nondisplaced Fracture morphology: unspecified fracture morphology Fracture type: closed Closed dens fracture S12.100A Encounter type: initial encounter Urinary retention R33.9 Venous stasis ulcer I83.009; L97.909 Peripheral arterial disease I73.9 Chronic anticoagulation Z79.01 HTN (hypertension) I10 (1) Closed dens fracture Encounter type: initial encounter Qualified Code(s): S12.100A - Unspecified displaced fracture of second cervical vertebra, initial encounter for closed fracture (2) C1 cervical fracture Encounter type: initial encounter Fracture alignment: nondisplaced Fracture morphology: unspecified fracture morphology Fracture type: closed Qualified Code(s): S12.001A - Unspecified nondisplaced fracture of first cervical vertebra, initial encounter for closed fracture
[2022-02-23] MEDS: PANTOprazole 40 MG TAB PO SCH (20:45)
[2022-02-24 07:36] LABS: Basophils # (auto) 0.05 K/uL (0-0.2); Basophils % (auto) 0.6 %; Eosinophils # (auto) 0.36 K/uL (0-0.5); Eosinophils % (auto) 4.4 %; Hemoglobin 9.1 g/dL (14.0-18.0); Immature Granulocytes # (auto) 0.04 K/uL (0.00-0.02); Immature Granulocytes % (auto) 0.5 %; Lymphocytes # (auto) 1.54 K/uL (1.2-3.4); Lymphocytes % (auto) 18.7 %; Mean Corpuscular Hemoglobin 31.8 pg (25-34); Mean Corpuscular Hgb Conc 32.5 g/dL (32-36); Mean Corpuscular Volume 97.9 fL (80-100); Mean Platelet Volume 9.3 fL (7.4-10.4); Monocytes # (auto) 1.16 K/uL (0.11-0.59); Monocytes % (auto) 14.1 %; Neutrophils # (auto) 5.09 K/uL (1.4-6.5); Neutrophils % (auto) 61.7 %; Platelet Count 264 K/uL (130-400); RDW Coefficient of Variation 15.7 % (11.5-14.5); RDW Standard Deviation 53.9 fL (36.4-46.3); Red Blood Count 2.86 M/uL (4.7-6.1); White Blood Count 8.24 K/uL (4.8-10.8)
[2022-02-24 07:40] LABS: INR 1.3 (0.9-1.1); Prothrombin Time 13.6 Seconds (9.0-12.0)
[2022-02-24] MEDS ORDERED: IRON SUCROSE 300 MG in SODIUM CHLORIDE 0.9% 250 ML IV ONE (08:03)
[2022-02-24] MEDS: PANTOprazole 40 MG TAB PO SCH (08:05)
[2022-02-24] MEDS: ATORVASTATIN 20 MG TAB PO SCH (08:05)
[2022-02-24] MEDS: METOPROLOL SUCC 50MG EXT REL TAB PO SCH (08:05)
[2022-02-24 08:06] LABS: BUN Creatinine Ratio 20.4 (10-20); Creatinine Clr Calc Pharmacy 114.5 ml/min; Est GFR (African American) 109.4 ml/min; Est GFR (Non-African American) 94.4 ml/min; Magnesium 1.8 mg/dl (1.7-2.4)
[2022-02-24] MEDS ORDERED: FUROSEMIDE 20 MG TAB PO SCH (09:00)
--- NOTE | 2022-02-24 16:14 | Discharge Summary ---
Date of Service February 24, 2022 Admission HPI Per Admitting Provider Alonso is an 87 y/o M w/ PmHx aortic stenosis, CAD, paroxysmal ventricular tachycardia, atrial fibrillation on warfarin, PAD s/p repair popliteal aneurysm, venous stasis w/ mult. non-healing leg wounds, recent fall 02/01 w/ C1 and dens closed fracture brought in for concerns over dehydration and melena in stool since this morning. Patient was recently hospitalized 02/01 for 3 days at [facility] for a fall which resulted in C1 fracture and closed dens fracture requiring the use of a [place] J collar. Patient said he has been feeling weaker since his discharge. He also endorsed no bowel movement after discharge since this morning. Son at the bedside stated he is staying with the dad for 5 days of the week and returns back to [facility] for the remainder of the week. His son stated his dad hasn't moved around too much since his fall and even less so when he is not present. Home health does come to help out 2-3 times per week. Patient stated he felt abdominal cramping around 2-3AM and felt like he needed to have a bowel movement but waited until the morning (~8AM) for his son to help him to go to the bathroom. Once he had his bowel movement there was a large amount of soft stool the patient's son described as dark black in color. Patient said he had felt a little dizzy walking to and from the bathroom but he was thinking that was more due to his generalized weakness. PT/OT had been seeing the patient post discharge and PT/OT sessions had been ramped up over the last week. He lost some over the past few months due to decreased appetite and the patient's son endorses it being difficult for his dad to eat most of the food he needs; he does supplement with ensure. Patient also has leg chronic wound ulcers wrapped by wound care outpatient, had an appointment scheduled for tomorrow to take off the wrappings. Patient had an INR check on Sunday which was high at 4.6. He says he was advised not to take his warfarin until he reached therapeutic levels. He says they had discussed the possibility of taking warfarin every other day before he had this bleed based on his increased INR on warfarin daily. He has not taken warfarin since /Sunday when he was told to stop taking it. Denies fevers, chills, nausea, vomiting, headache, changes in vision or hearing, palpitations, abdominal pain or discomfort, shortness of breath. Principal Diagnosis Acute blood loss anemia, gastrointestinal bleeding Discharge Exam Constitutional WD/WN, vitals as above Eyes + anicteric sclerae Neck trachea midline, no thyromegaly [place] J collar currently in place Respiratory normal respiratory effort, lungs clear to auscultation Cardiovascular Rate/Rhythm: regular rate and + irregularly irregular Chest (Breasts) Chest: normal inspection of chest Gastrointestinal (Abdomen) normal bowel sounds, soft, nontender, no hepatosplenomegaly Musculoskeletal Extremities: + extremities abnormal to inspection (coban wraps in place bilat), no cyanosis and no clubbing Skin no rashes, warm and dry Neurologic moves all extremities and awake; no focal motor deficits Psychiatric A+Ox3, euthymic affect Genitourinary no penis abnormality (Slade in place with clear yellow urine) Lymphatic no lymphedema Discharge Data Allergies Allergy/AdvReac Type Severity Reaction Status Date / Time hall Allergy Severe FRESH Verified 02/20/22 17:48 CHERRIES CAUSE THROAT SWELLING/BREATHING DIFFICULTY Consultations 02/20/22 17:02 ED Decision to Admit Stat 02/20/22 19:56 Consult Gastroenterology Stat Hospital Course (1) Anemia due to acute blood loss: Acute blood loss anemia Secondary to gastrointestinal bleeding Hemoglobin dropped down to 7.9 with a baseline of hemoglobin 14.6 just 2 to 3 weeks ago No further bleeding since admission and had no bowel movements at all Transfused 1 unit PRBCs on 02/22 and hemoglobin up to 9.1 on the day of discharge Given for 300 mg IV x1 on 02/24 Blood pressures normalized and tachycardia resolved Monitor CBC as an outpatient in 3 days Remain off anticoagulation For now but can restart next week if blood counts remained stable no further bleeding as an outpatient after discharge Start ferrous sulfate 325 mg p.o. twice daily (2) Melena: GI bleed d/t anticoagulant therapy Likely upper GI bleed given melena Could be secondary to ulcer given recent hospitalization for cervical spine fracture -INR 1.3 after vitamin K given in the ER -Hemoccult positive, but no further melena since admission -Continue holding warfarin, clopidogrel until repeat CBC as an outpatient as above -Received Protonix 40mg IV BID and then converted to Protonix 40 Mg p.o. twice daily which he should remain on for at least 2 to 3 months convert to p.o. tonight -Appreciate GI consult-no plans for endoscopic evaluation at this time as he is stabilized and has C1 fracture which would be risky for anesthesia and positioning with EGD -Tolerating low fiber diet -Patient would like to transition to Eliquis when he restarts anticoagulation- Will plan to restart anticoagulation early next week if hemoglobin remains stable and no further bleeding-prescribed Eliquis on discharge but advised him to not start it yet (3) Paroxysmal atrial fibrillation: With RVR secondary to acute blood loss Rates are now normalized after transfusion -Continue Metoprolol succinate 50mg daily which is his home dose -Plan to discontinue Coumadin and switch to Eliquis given that this episode of GI bleeding was secondary to supratherapeutic INR (4) C1 cervical fracture: Diagnosed on prior admission due to a fall -Keep [place] J collar on at all times but can loosen to eat and bathe -If development of new symptoms concerning for compression progression, can get repeat imaging. -He was to have repeat CT scan as an outpatient in the near future with spine surgeon and he will follow-up with spine surgery as an outpatient (5) Closed dens fracture: (6) Urinary retention: -Slade in place. Per patient, urology would like to keep in for a month. Urinalysis appears infected but could be colonization due to indwelling Slade He has no fevers or urinary symptoms Follow urine culture-growing 50,000 CFU gram-positive cocci-no need for treatment No antibiotics at this time (7) Venous stasis ulcer: Now resolved (8) Peripheral arterial disease: Continue atorvastatin CLopidogrel on hold in setting of GI bleed but can restart hopefully next week (9) Chronic anticoagulation: On Coumadin which is now on hold and reversed Plan to start Eliquis once GI bleeding resolved (10) HTN (hypertension): -BP stable at current time. -Continue metoprolol succinate 50mg daily. Continue daily Lasix DVT Prophylaxis: SCDs Code Status: DNR/DNI. Dispo: Stable for discharge to home. PT/OT recommended rehab but patient and his family feel comfortable returning home at this point with 24/7 care and home health as rehab placement would not occur likely till next week and they do not want stay in the hospital any longer Total Time Total Time Spent Total Time Spent (In Minutes): 40 minutes Discharge Plan Discharge Items Patient Disposition: Home - Home Health Services Reason For Visit: MELENA, DEHYDRATION, A FIB Discharge Diagnosis: Acute blood loss anemia, GI bleeding Condition on Discharge: Fair Activity: As commented below Lifting: No more than 5 pounds Lifting Comment: Can ambulate but no exercise Bathing: No limitations Exercise Comment: Must wear [place] J collar at all times,loosen only for bathing/eating Driving/Machine Use: No driving Weightbearing: Full weightbearing Non-emergency contact: Primary Care Provider Call non-emergency contact if: you have any medication questions and your symptoms worsen Follow-up/Referrals: Red Mix MD [Primary Care Provider] - (Follow-up within 1 week) Diet: Heart Healthy Addtl Attending Provider Instructions: You were admitted with bleeding from the gastrointestinal tract and treated with antacids. Your blood thinner was reversed and your Plavix was held. You had no further bleeding after admission. You were transfused 1 unit of blood and given 1 dose of IV iron. Please remain off of your Coumadin and Plavix. Have the home health nurse check your complete blood count on 02/27/[address] Mix's office on Sunday for the results. You can restart your Plavix and start the Eliquis that we will replace the Coumadin if Dr. Mix says this is okay based on your results at that time. Please continue the Protonix twice daily in case you had an ulcer that caused your bleeding. If you have recurrence of black tarry stools or blood in your stool or vomiting of blood or abdominal pains, please return to the hospital. Please keep your follow-up appointments with urology, and ensure you have a follow-up appointment scheduled with Dr. Fraire of spine surgery for your neck fracture. Pending Studies at Discharge: No Stand-Alone Forms: My [employer], Smoking Cessation Medications and DC Order Prescriptions: New ferrous sulfate 325 mg (65 mg iron) Tablet,Delayed Release (Dr/Ec) 325 mg PO BIDM Qty: 60 RF: 0 pantoprazole 40 mg Tablet,Delayed Release (Dr/Ec) 40 mg PO BID Qty: 60 RF: 0 Eliquis 5 mg tablet 5 mg PO BID Qty: 60 RF: 0 Continued selenium 200 mcg tablet 200 mcg PO DAILY RF: 0 lutein 6 mg capsule 6 mg PO DAILY RF: 0 niacin 250 mg tablet 250 mg PO DAILY RF: 0 vitamin B complex capsule 1 cap PO DAILY RF: 0 coenzyme Q10 200 mg capsule 200 mg PO DAILY RF: 0 vitamin E (dl, acetate) 400 unit capsule 400 units PO DAILY RF: 0 percy [id number] [Citracal-D3 Plus Magnesium] 250-40-125 mg-mg- unit tablet 1 tab PO DAILY RF: 0 biotin 1 mg capsule 1 mg PO DAILY RF: 0 ascorbic acid (vitamin C) 500 mg capsule 1,000 mg PO DAILY RF: 0 omega-3 fatty acids 1,000 mg capsule 2,000 mg PO DAILY RF: 0 cholecalciferol (vitamin D3) 100 mcg (4,000 unit) capsule 5,000 unit PO DAILY RF: 0 docusate sodium [Colace] 100 mg capsule 200 mg PO DAILY RF: 0 atorvastatin [Lipitor] 20 mg tablet 20 mg PO DAILY Qty: 90 RF: 3 metoprolol succinate 50 mg tablet extended release 24 hr 50 mg PO DAILY Qty: 90 RF: 3 furosemide [Lasix] 20 mg tablet 20 mg PO DAILY Qty: 30 RF: 5 (DME) walker Misc See Rx Instructions .Route Qty: 1 RF: 0 (DME) Lift Chair Misc See Rx Instructions .Route Qty: 1 RF: 0 (DME) Bedside Commode Misc See Rx Instructions .Route Qty: 1 RF: 0 chromium picolinate 200 mcg Tablet 200 mcg PO DAILY RF: 0 Discontinued clopidogrel [Plavix] 75 mg tablet 75 mg PO DAILY Qty: 90 RF: 3 warfarin 7.5 mg tablet See Rx Instructions PO DAILY RF: 0 Vitamin K Tab 1 tab PO DAILY RF: 0 Discharge Orders: Discharge Order (Routine); Ordered 02/24/22 Ordered By: Ainta Bruno Admission Data Admit Date/Time: 02/20/22 21:05 Attending Provider: Anita Bruno Admit Provider: Julio Conroy Primary Care Provider: Red Mix Other Providers: Connor Hunt ; rTee Pugh ; [facility] ; [facility] Coding Level of Care Code D/C DAY MANAGEMENT >30 MINS Diagnoses Anemia due to acute blood loss D62 Melena K92.1 Paroxysmal atrial fibrillation I48.0 C1 cervical fracture S12.001A Encounter type: initial encounter Fracture alignment: nondisplaced Fracture morphology: unspecified fracture morphology Fracture type: closed Closed dens fracture S12.100A Encounter type: initial encounter Urinary retention R33.9 Venous stasis ulcer I83.009; L97.909 Peripheral arterial disease I73.9 Chronic anticoagulation Z79.01 HTN (hypertension) I10
[2022-02-25] MEDS ORDERED: FERROUS SULFATE 325 MG TAB PO SCH (09:00)
== END 2022-02-24 16:49 | disposition home health service (06) ==
LOC: ED 13:53 → INTOOBSV 21:05 → SUATTDRO 21:05 → 2N 21:05